=== PATIENT | female | born 1995 | race Caucasian/White ===

== ENCOUNTER → 2020-01-13 13:58 | Outpatient (CLI) | payer MEDICAID, SELFPAY ==
--- NOTE | 2020-01-13 13:58 | US_ITS ---
PROCEDURE: US TRANSVAGINAL CLINICAL INDICATION: pelvic pain The COMPARISON: No exams were available for comparison FINDINGS: UTERUS: 8cm x 4cmx 3cm with a combined endometrial thickness of 3.8mm LEFT OVARY: [id number] with a volume of 3.4ml. RIGHT OVARY: [id number] with a volume of 11.4ml. There is a 2 cm simple right ovarian cyst. Bilateral ovarian blood flow is present. IMPRESSION: 2 cm simple appearing right ovarian cyst otherwise unremarkable pelvic ultrasound Dictated by: Devaughn Maurice MD 01/13/2020 15:03 Devaughn Maurice MD in [place] 01/13/2020 15:03
== END ==
PROVIDERS: PCP Family Medicine; Visit Provider Nurse Practitioner Obstetrics & Gynecology
DX: R10.2 Pelvic and perineal pain (principal)
CPT/HCPCS: 76830

== ENCOUNTER → 2020-07-04 15:35 | Outpatient (CLI) | payer MEDICAID, SELFPAY ==
[2020-07-06 12:10] LABS: Hep A Ab, IgM Negative (Negative); Hepatitis B Core Antibody IgM Negative (Negative); Hepatitis B Surface Antigen Negative (Negative)
[2020-07-08 10:28] LABS: HIV Screen 4th Generation wRfx Non Reactive (Non Reactive)
[2020-07-08 10:29] LABS: HSV 2 IgG, Type Spec <0.91 index (0.00-0.90); Hepatitis C Antibody <0.1 s/co ratio (0.0-0.9); Rapid Plasma Reagin Ab Titer Non Reactive (NonRea<1:1)
== END ==
PROVIDERS: Visit Provider Nurse Practitioner Obstetrics & Gynecology
DX: Z72.51 High risk heterosexual behavior (principal)
CPT/HCPCS: 36415; 80074; 86592; 86695; 86703; 86790; G0432

== ENCOUNTER → 2020-07-05 15:41 | Outpatient (CLI) | payer MEDICAID, SELFPAY ==
[2020-07-10 10:36] LABS: Neisseria gonorrhoeae, NAA Negative (Negative)
== END ==
PROVIDERS: Visit Provider Nurse Practitioner Obstetrics & Gynecology
DX: Z72.51 High risk heterosexual behavior (principal)
CPT/HCPCS: 87491; 87591

== ENCOUNTER 2020-09-20 11:50 | Emergency (ER) | payer MEDICAID, SELFPAY ==
[2020-09-20 12:11] VITALS: PULSE 104; RESP 13; TEMP 36.8; O2SAT 100; BMI 19.5
--- NOTE | 2020-09-20 12:20 | HMH.EDUTC ---
[facility] [place] Disposition Clinical Impression: Strep throat Disposition: Home, Self-Care Condition on Discharge: Good Instructions: DI for Strep Throat, Strep Throat, Amoxicillin Additional Instructions: *Monitor Temp, Over the counter Motrin or Tylenol as directed/as needed Tylenol every 4 hours and Motrin every 6 hours (as long as your family doctor has told you that you can take it) for fever or pain. and straight to ER if unable to lower temp less than 101.0 after medication given *Warm salt water gargles may help to soothe the throat *Throat Lozenges *Warm fluids like tea with honey may help to soothe the throat *Sleep elevated *Humidifier/Vaporizer Take antibiotics as prescribed Follow up IMMEDIATELY for new or worsening symptoms or no Noticeable improvement over the next 48-72 hours. 911 for difficulty breathing or swallowing You were tested for today for COVID19 your test result should be back in the next 24-48 hours, you may call to the [facility] to see if your test results are back in the next 48 hours [phone] [facility] hours are 9am-9pm You was given a handout with instructions for Self Quarantine and Self isolation for while you wait on test results and what to do if they are positive If you are positive the Health Dept will be contacting you also Prescriptions: Amoxicillin [Amoxicillin 500mg Cap] 500 mg PO TID #30 cap Transmission Status: Pending to [facility]/pharmacy #[id number] Referrals: Marcellus Toussaint [Primary Care Provider] - As needed Forms: Work/School Release Time of Disposition: 12:30 Medical Decision Making - Devan Inquiry Pt receiving controlled substance: No Devan was queried for this patient: No Vital Signs: 09/20/20 12:11 Temperature 98.3 F Temperature Source Oral Pulse Rate [Left] 104 H Respiratory Rate 13 Blood Pressure Source [Right Arm] Automatic Cuff Blood Pressure Position [Right Arm] Sitting 02 Sat by Pulse Oximetry 100 - Lab Data Lab results reviewed: Yes: I reviewed the patient's lab results. Lab Results 09/20/20 12:14: Strep Scn Rapid Clinic Negative 09/20/20 12:14: Tst Clinic Negative Orders (Tests/Meds): ORDERS Category Date Time Status Covid-19 Nasal PCR ([facility]) Routine Lab 09/20/20 12:12 Received Strep Screen Confirmation Stat Micro 09/20/20 12:14 Received [facility] [place] HPI - General Stated complaint: sore throat, bodyaches, chills, upset stomach Time Seen by Provider: 09/20/20 12:20 Mode of Arrival: Ambulatory Source of Information: Patient Limitations: No Limitations Description of Symptoms (Recalled from Triage Doc. by RN): pt c/o a sore throat. she had a stomach ache yesterday, its not bothering her today. HEENT Symptoms (Recalled from RN notes): Yes (sore throat) Resp Symptoms (Recalled from RN notes): No Skin Symptoms (Recalled from RN notes): No MS Symptoms (Recalled from RN notes): No Functional Status (Recalled from RN notes): na - History of Present Illness Provider Complaint: Patient states that she has been having sore throat and yesterday she had upset stomach State that today she is feeling a little better but her throat is still hurting and she is feeling achy all over - Related Data Previous Rx's Medication Instructions Recorded Xulane 150 mcg-35 mcg/24 hr 1 patch TRANSDERMA Q7D #3 each NS 07/04/20 transdermal patch Amoxicillin [Amoxicillin 500mg 500 mg PO TID #30 cap 09/20/20 Cap] Allergies Allergy/AdvReac Type Severity Reaction Status Date / Time pecan nut Allergy Unknown Verified 09/20/20 12:17 red dye Allergy Unknown -- Verified 09/20/20 12:17 - Worker's Comp Is this a Worker's Comp case?: No [facility] History - Hepatitis A Screen Drug use history?: No High risk sexual behaviors?: No History of sexually transmitted infection?: No Currently employed?: No Childcare worker?: No Do you have indoor plumbing?: Yes Do you have electricity?: Yes Attestation statement:: This patient has been screened for Hepatitis
[2020-09-20 12:25] LABS: UTC Pregnancy Test, Urine Negative (Negative)
[2020-09-20 12:28] LABS: UTC Strep Screen (Rapid) Positive (Negative)
[2020-09-20 12:41] VITALS: BP 118/76; PULSE 100; RESP 16; TEMP 36.6
--- NOTE | 2020-09-20 20:59 | PC.NURSE ---
reported covid positive results.
== END 2020-09-20 12:41 | disposition home or self-care (01) ==
PROVIDERS: Emergency Provider Nurse Practitioner; PCP Family Medicine
DX: J02.0 Streptococcal pharyngitis (principal); F17.210 Nicotine dependence, cigarettes, uncomplicated
CPT/HCPCS: 81025; 87880; 99203; G0463; U0003

== ENCOUNTER → 2020-10-04 10:49 | Outpatient (CLI) | payer MEDICAID, SELFPAY ==
[2020-10-04 12:31] LABS: HCG,Quantitative < 2 mIU/ml (0-5.42)
== END ==
PROVIDERS: Visit Provider Nurse Practitioner Obstetrics & Gynecology
DX: N92.6 Irregular menstruation, unspecified (principal)
CPT/HCPCS: 36415; 84702

== ENCOUNTER 2020-11-13 10:25 | Emergency (ER) | payer MEDICAID, SELFPAY ==
[2020-11-13 10:50] VITALS: BP 116/66; PULSE 74; RESP 16; TEMP 36.6; O2SAT 100; BMI 18.9
[2020-11-13 11:19] LABS: UTC Pregnancy Test, Urine Negative (Negative)
[2020-11-13 11:20] LABS: UTC Strep Screen (Rapid) Positive (Negative)
[2020-11-13 11:32] VITALS: BP 116/66; PULSE 74; RESP 16; TEMP 36.6
--- NOTE | 2020-11-13 11:33 | HMH.EDUTC ---
[facility] [place] Clinical Impression: Viral syndrome Disposition: Home, Self-Care Condition on Discharge: Good Instructions: DI for Viral Syndrome Additional Instructions: Drink plenty of fluids. Take tylenol for pain or fever. Return if you begin to have difficulty breathing. Follow up with your regular doctor. GO TO THE ER FOR ANY WORSENING SYMPTOMS Quarantine until you know the results of your covid-19 test. If it is positive, the health department should call you and give you further instructions about your length of Quarantine and other things. Notify your school or workplace of your results and follow their instructions regarding return to work/school. Prescriptions: Brompheniramine/Pseudoephed/Dm [Bromfed Dm Cough Syrup] 5 ml PO Q6HP PRN #240 ml PRN Reason: Cough Transmission Status: Received by [id number] Referrals: Evens Toussaint MD [Primary Care Provider] - Time of Disposition: 11:34 Medical Decision Making - Medical Records Medical records reviewed: No: I reviewed the patient's medical records. - Devan Inquiry Pt receiving controlled substance: No Vital Signs: 11/13/20 10:50 11/13/20 11:32 Temperature 97.9 F 97.9 F Temperature Source Oral Pulse Rate 74 Pulse Rate [Left] 74 Respiratory Rate 16 16 Blood Pressure 116/66 Blood Pressure [Right Arm] 116/66 Blood Pressure Mean [Right Arm] 82 02 Sat by Pulse Oximetry 100 - Lab Data Lab results reviewed: Yes: I reviewed the patient's lab results. Lab Results 11/13/20 10:53: Strep Scn Rapid Clinic Positive A 11/13/20 10:53: Tst Clinic Negative [facility] [place]PI - General Stated complaint: cough, exposure to flu Time Seen by Provider: 11/13/20 11:00 Mode of Arrival: Ambulatory Source of Information: Patient Limitations: No Limitations Description of Symptoms (Recalled from Triage Doc. by RN): pt c/o of nausea that mostly occurs in the mornings. x2 weeks. HEENT Symptoms (Recalled from RN notes): No Resp Symptoms (Recalled from RN notes): No Skin Symptoms (Recalled from RN notes): No MS Symptoms (Recalled from RN notes): No Functional Status (Recalled from RN notes): na - History of Present Illness Provider Complaint: She has been having nausea off and on for the past 3 days. - Related Data Previous Rx's Medication Instructions Recorded Xulane 150 mcg-35 mcg/24 hr 1 patch TRANSDERMA Q7D #3 each NS 07/04/20 transdermal patch Amoxicillin [Amoxicillin 500mg 500 mg PO TID #30 cap 09/20/20 Cap] Brompheniramine/Pseudoephed/Dm 5 ml PO Q6HP PRN #240 ml 11/13/20 [Bromfed Dm Cough Syrup] Allergies Allergy/AdvReac Type Severity Reaction Status Date / Time pecan nut Allergy Unknown Verified 09/20/20 12:17 red dye Allergy Unknown -- Verified 09/20/20 12:17 - Worker's Comp Is this a Worker's Comp case?: No [facility] History - Hepatitis A Screen Drug use history?: No High risk sexual behaviors?: No History of sexually transmitted infection?: No Currently employed?: No Childcare worker?: No Do you have indoor plumbing?: Yes Do you have electricity?: Yes Attestation statement:: This patient has been screened for Hepatitis A risk factors. I have reviewed the patient's past medical history: Yes Comment: EPILEPTIC. TRICH. ON PAPS Other Surgeries: Yes: Amputation: No Fractures: No Comment: P* C/S---2014. R C/S---2017 - 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 Smoking Status: Current every day smoker Alcohol Intake: current Alcohol Intake Frequency:: holidays/special occasions only Substance Use Type: denies use Occupational Status: unemployed Housing: house Family Hx:: No significant family history ROS Obtained: Yes All systems reviewed & no additional complaints - Constitutional Constitutional: Reports system reviewed and no additional complaints, except as docu - Eyes Eyes: Reports system reviewed and no additional complaints, except as docu - ENT Ears, Nose, Mouth, and Throat:
== END 2020-11-13 11:40 | disposition home or self-care (01) ==
PROVIDERS: Emergency Provider Nurse Practitioner Family; PCP Radiology Diagnostic Radiology
DX: B34.9 Viral infection, unspecified (principal); R05 Cough
CPT/HCPCS: 81025; 87880; 99203; G0463

== ENCOUNTER 2021-05-04 15:03 | Emergency (ER) | payer MEDICAID, SELFPAY ==
[2021-05-04 15:04] VITALS: BP 115/89; PULSE 109; RESP 16; TEMP 36.9; O2SAT 98; BMI 18.4
[2021-05-04 15:33] LABS: UTC Strep Screen (Rapid) Negative (Negative)
--- NOTE | 2021-05-04 16:02 | HMH.EDUTC ---
[facility] [place] Impression: Vomiting Qualifiers: Vomiting type: unspecified Nausea presence: with nausea Qualified Code(s): R11.2 - Nausea with vomiting, unspecified URI (upper respiratory infection) Qualifiers: URI type: unspecified URI Qualified Code(s): J06.9 - Acute upper respiratory infection, unspecified Disposition: Home, Self-Care Condition on Discharge: Good Instructions: DI for Vomiting -- Adult, Acute Bronchitis Additional Instructions: ? Start antibiotic today. Be sure to complete entire prescription even if feeling better ? Monitor temp. Tylenol every 4 hours as needed and / or ibuprofen every 6 hours as needed ( As long as your primary care physician has told you that it ok to take both. For fever/aches/pains ER if no less than 101 despite Tylenol or Motrin ? Humidifier/vaporizer or hot steamy shower Drink extra fluids with and between meals. If you have difficulty drinking, try very small amounts of water or suck on ice chips. ? Avoid fruit juices, as these do not replace minerals and can actually increase diarrhea. ? Children and adults can use sports drinks to replenish electrolytes. Younger children and infants should use products formulated for children, like oral rehydration solutions. ? Eat food in small amounts and let your stomach recover. ? Get lots of rest. You may feel tired or weak. ? No greasy or fried foods for the next 24-48 hours BRAT diet Bananas Rice Apples and Alda ? Make sure to drink plenty of liquids ? Return if needed ? Straight to ER if any life threatening symptoms ? Zofran as prescribed ? Follow up with family doctor in the next 48-72 hours if no improvement or any worsening of symptoms Follow up IMMEDIATELY for new or worsening of symptoms OR no noticeable improvement over the next 48-72 hours. 911 immediately for any life threatening symptoms such as chest pain or difficulty breathing Prescriptions: Azithromycin [Z-Ishaan 250mg Tab] 250 mg PO DIRECTED #6 tab Transmission Status: [id number] Ondansetron [Zofran 4mg ODT] 4 mg PO TIDP PRN #6 tab PRN Reason: Vomiting Transmission Status: [id number] Referrals: Provider,Referral, MD [Primary Care Provider] - As needed Time of Disposition: 16:09 Medical Decision Making - Devan Inquiry Pt receiving controlled substance: No Devan was queried for this patient: No Vital Signs: 05/04/21 15:04 Temperature 98.5 F Temperature Source Oral Pulse Rate [Right] 109 H Respiratory Rate 16 Blood Pressure [Right Arm] 115/89 Blood Pressure Mean [Right Arm] 97 Blood Pressure Source [Right Arm] Automatic Cuff Blood Pressure Position [Right Arm] Sitting 02 Sat by Pulse Oximetry 98 Oxygen Delivery Method Room Air - Lab Data Lab results reviewed: Yes: I reviewed the patient's lab results. Lab Results 05/04/21 15:24: Strep Scn Rapid Clinic Negative Orders (Tests/Meds): ORDERS Category Date Time Status Strep Screen Confirmation Stat Micro 05/04/21 15:24 [place] [facility] [place] - General Stated complaint: cough, stomach pain, sore throat Time Seen by Provider: 05/04/21 16:02 Mode of Arrival: Ambulatory Source of Information: Patient Limitations: No Limitations Description of Symptoms (Recalled from Triage Doc. by RN): pt c/o sore throat, body aches that started 2 days ago HEENT Symptoms (Recalled from RN notes): Yes (sore throat) Resp Symptoms (Recalled from RN notes): No Skin Symptoms (Recalled from RN notes): No MS Symptoms (Recalled from RN notes): No Functional Status (Recalled from RN notes): na - History of Present Illness Provider Complaint: Patient states that she has been having sore throat, body aches, chest congestion and vomiting for the last couple of days States that today she was feeling worse so she came in to get checked States that at times she feels like she is having drainage in the back of her throat and is an everyday smoker - Related Tyrone
[2021-05-04 16:12] VITALS: BP 115/89; PULSE 100; RESP 16; TEMP 36.9; O2SAT 98
== END 2021-05-04 16:13 | disposition home or self-care (01) ==
PROVIDERS: Emergency Provider Nurse Practitioner
DX: J06.9 Acute upper respiratory infection, unspecified (principal); J02.9 Acute pharyngitis, unspecified; R10.9 Unspecified abdominal pain; R11.2 Nausea with vomiting, unspecified; M79.10 Myalgia, unspecified site; R05.9 Cough, unspecified; F17.200 Nicotine dependence, unspecified, uncomplicated; Z79.899 Other long term (current) drug therapy; Z91.010 Allergy to peanuts; Z91.048 Other nonmedicinal substance allergy status
CPT/HCPCS: 87880; 99213; G0463

== ENCOUNTER 2021-08-11 19:37 | Emergency (ER) | payer MEDICAID, SELFPAY ==
[2021-08-11 19:57] VITALS: BP 107/65; PULSE 68; RESP 18; TEMP 36.8; O2SAT 98; BMI 20.3
[2021-08-11 20:13] LABS: Apearance,Urine Clear (Clear); Bilirubin,Urine Negative (Negative); Blood, Urine Negative (Negative); Color,Urine Yellow (Yellow); Glucose,Urine (UA) Negative (Negative); Ketones,Urine Negative (Negative); Protein,Urine Negative (Negative); Urobilinogen,Urine 0.2 EU/dl (0.2)
[2021-08-11 20:14] LABS: UTC Leukocyte Esterase,Urine Negative (Negative); UTC Nitrate,Urine Negative (Negative); UTC Pregnancy Test, Urine Negative (Negative)
--- NOTE | 2021-08-11 20:54 | HMH.EDUTC ---
[facility] [place] Condition on Discharge: Fair Time of Disposition: 21:08 <Tuan Burnham - Last Filed: 08/11/21 20:54> <Andres Brown - Last Filed: 08/12/21 01:08> Clinical Impression: Colitis Abdominal pain Qualifiers: Abdominal location: lower abdomen, unspecified Qualified Code(s): R10.30 - Lower abdominal pain, unspecified Disposition: Home, Self-Care Instructions: DI for Colitis Additional Instructions: fluids and use meds and see pcp for follow up Prescriptions: levoFLOXacin [Levaquin 500mg tab] 500 mg PO DAILY #7 tab Transmission Status: [id number] metroNIDAZOLE [metroNIDAZOLE 500mg Tablet] 500 mg PO TID #30 tab Transmission Status: [id number] Referrals: Marcellus Toussaint [Primary Care Provider] - Medical Decision Making - Medical Records Medical records reviewed: No: I reviewed the patient's medical records. - Devan Inquiry Pt receiving controlled substance: No - Lab Data Lab results reviewed: Yes: I reviewed the patient's lab results. <Tuan Burnham - Last Filed: 08/11/21 20:54> - Lab Data Result diagrams: 08/11/21 21:50 08/11/21 21:50 - CT Data CT Scan: Abdomen, Pelvis Time Received: 01:[address] Reviewed: Yes: I have viewed the radiologist's interpretation Preliminary Findings: Abnormal (colitis) <Andres Brown - Last Filed: 08/12/21 01:08> Vital Signs: 08/11/21 19:57 08/11/21 21:30 Temperature 98.3 F 98.2 F Temperature Source Oral Oral Pulse Rate [Left Radial] 68 68 Respiratory Rate 18 16 Blood Pressure [Right Arm] 107/65 L 115/73 Blood Pressure Mean [Right Arm] 79 87 Blood Pressure Source [Right Arm] Automatic Cuff 02 Sat by Pulse Oximetry 98 99 Oxygen Delivery Method Room Air - Lab Data Lab Results 08/11/21 20:03: Urine Color Yellow, Urine Appearance Clear, Urine pH 6.0, Ur Specific [place] 1.010, Urine Protein Negative, Urine Glucose (UA) Negative, Urine Ketones Negative, Urine Blood Negative, Urine Nitrate Negative, Urine Bilirubin Negative, Urine Urobilinogen 0.2, Ur Leukocyte Esterase Negative, Tst Clinic Negative 08/11/21 21:50: WBC 12.4 H, RBC 4.88, Hgb 14.2, Hct 43.3, MCV 88.8, MCH 29.2, MCHC 32.9, RDW 13.6, Plt Count 251, MPV 8.5, Neut % (Auto) 67.2, Lymph % (Auto) 26.4, [place] % (Auto) 4.5, Eos % (Auto) 0.7, Baso % (Auto) 1.2, Neut # (Auto) 8.3 H, Lymph # (Auto) 3.3, [place] # (Auto) 0.6, Eos # (Auto) 0.1, Baso # (Auto) 0.2, ESR 5 08/11/21 21:50: Sodium 138, Potassium 4.0, Chloride 106, Carbon Dioxide 27, Anion Gap 9.0, BUN 6 L, Creatinine 0.60, Estimated Creat Clear 135, Estimated GFR 123, Est GFR ( Amer) 149, Glucose 94, Calcium 8.9, Total Bilirubin < 0.1 L, AST 21, ALT 12, Alkaline Phosphatase 71, C-Reactive Protein 1.2, Total Protein 7.2, Albumin 4.1, Globulin 3.1, Albumin/Globulin Ratio 1.3, Amylase 67, Lipase 55, Procalcitonin 0.040 Orders (Tests/Meds): ED MEDICATIONS Generic Name Dose Route Start Last Admin Trade Name Freq PRN Reason Stop Dose Admin Sodium Chloride 1,000 mls @ 999 mls/hr 08/11/21 21:45 08/11/21 22:18 Sod Chlor 0.9% 1000ml Bag IV 08/11/21 22:45 999 mls/hr .Q1H1M NANCY Administration Sodium Chloride 1,000 mls @ 999 mls/hr 08/12/21 00:30 08/12/21 00:25 Sod Chlor 0.9% 1000ml Bag IV 08/12/21 01:30 999 mls/hr .Q1H1M NANCY Administration Metronidazole 500 mg in 100 mls @ 100 mls/hr 08/12/21 01:01 Flagyl 500mg/100ml Ivpb IV 08/12/21 02:00 ONCE ONE Discontinued Medications Generic Name Dose Route Start Last Admin Trade Name Freq PRN Reason Stop Dose Admin Acetaminophen/Codeine Phosphate 1 packet 08/12/21 01:02 Acetaminophen 300mg W/Codeine 30mg Take Home Pack (6) PO 08/12/21 01:03 ONCE ONE Diatrizoate Meglum/Diatrizoate Sod 30 ml 08/11/21 21:35 08/11/21 22:00 Diatrizoate Yanni 66% & Diatrizoate Na 10% 30ml Udc PO 08/11/21 21:36 30 ml ONCE ONE Administration Ketorolac Tromethamine 30 mg 08/11/21 21:36 08/11/21 22:18
[2021-08-11 21:30] VITALS: BP 115/73; PULSE 68; RESP 16; TEMP 36.8; O2SAT 99; BMI 18.6
--- NOTE | 2021-08-11 21:35 | CT_ITS ---
PROCEDURE INFORMATION: Exam: CT Abdomen And Pelvis Without Contrast Exam date and time: 08/11/2021 11:27 PM Age: 26 years old Clinical indication: Abdominal pain; Generalized; Additional info: Low abd pain TECHNIQUE: Imaging protocol: Computed tomography of the abdomen and pelvis without contrast. Radiation optimization: All CT scans at this facility use at least one of these dose optimization techniques: automated exposure control; mA and/or kV adjustment per patient size (includes targeted exams where dose is matched to clinical indication); or iterative reconstruction. Other contrast: Oral, gastroview, 30; COMPARISON: US TRANSVAGINAL 01/13/2020 2:07 PM FINDINGS: Lungs: There is a 3 mm left lower lobe pulmonary nodule image 14 series 3. If the patient does not have known cancer, follow up should be based on clinical information because of the low risk of cancer in this age group. (Reference: Wyatt) Liver: Normal. No mass. Gallbladder and bile ducts: Normal. No calcified stones. No ductal dilation. Pancreas: Normal. No ductal dilation. Spleen: Normal. No splenomegaly. Adrenal glands: Normal. No mass. Kidneys and ureters: Normal. No hydronephrosis. Stomach and bowel: Nonspecific mild bowel wall thickening of portions of small bowel and colon. Appendix: Unremarkable appendix. Intraperitoneal space: Unremarkable. No free air. No significant fluid collection. Vasculature: Unremarkable. No abdominal aortic aneurysm. Lymph nodes: Unremarkable. No enlarged lymph nodes. Urinary bladder: Unremarkable as visualized. Reproductive: Unremarkable as visualized. Bones/joints: Unremarkable. No acute fracture. Soft tissues: Unremarkable. IMPRESSION: Nonspecific mild bowel wall thickening of portions of small bowel and colon. This is favored to represent enterocolitis. REFERENCES: Wyatt Lim et al. Guidelines for Management of Incidental Pulmonary Nodules Detected on CT Images: From the Fleischner Society 2017. Radiology. 2017;284(1):228-243.
[2021-08-11 22:27] LABS: Basophils # 0.2 K/mm3 (0-0.2); Basophils % 1.2 % (0.1-2.0); Eosinophils # 0.1 K/mm3 (0.0-0.4); Eosinophils % 0.7 % (0.1-12.0); Hematocrit 43.3 % (37.0-47.0); Hemoglobin 14.2 g/dL (12.2-16.2); Lymphocytes # 3.3 K/mm3 (0.7-4.5); Lymphocytes % 26.4 % (10-50); Mean Corpuscular HGB Conc 32.9 g/dL (31.8-35.4); Mean Corpuscular Hemoglobin 29.2 pg (27.0-31.2); Mean Corpuscular Volume 88.8 fl (81-99); Mean Platelet Volume 8.5 fl (7.4-10.4); Monocytes # 0.6 K/mm3 (0.1-1.0); Monocytes % 4.5 % (1.7-9.3); Neutrophils # 8.3 K/mm3 (1.8-7.8); Neutrophils % 67.2 % (37.0-80.0); Platelet Count 251 K/mm3 (142-424); Red Blood Count 4.88 M/mm3 (4.20-5.40); Red Cell Distribution Width 13.6 % (11.5-17.5); White Blood Count 12.4 K/mm3 (4.8-10.8)
[2021-08-11 22:37] LABS: Alanine Aminotransferase 12 U/L (12-78); Albumin Level 4.1 g/dl (3.5-5.0); Albumin/Globulin Ratio 1.3 (1.1-1.8); Alkaline Phosphatase 71 U/L (38-126); Amylase 67 U/L (30-110); Aspartate Amino Transferase 21 U/L (14-36); Blood Urea Nitrogen 6 mg/dl (7-17); Calcium 8.9 mg/dl (8.4-10.2); Carbon Dioxide 27 mmol/L (22.0-30.0); Chloride 106 mmol/L (98-107); Creatinine Clearance Estimated 135 mL/min (50-200); Estimated Glomerular Filt Rate 123 ml/min (>60); GFR (African American) 149 ML/MIN (>60); Globulin 3.1 g/dL (1.3-3.2); Glucose 94 mg/dl (74-100); Lipase 55 U/L (23-300); Sodium 138 mmol/L (136-145); Total Protein,Serum 7.2 g/dl (6.3-8.2)
[2021-08-11 22:38] LABS: Bilirubin,Total < 0.1 mg/dl (0.2-1.3)
[2021-08-11 22:42] LABS: C-Reactive Protein 1.2 mg/L (0-4)
[2021-08-11 23:02] LABS: Erythrocyte Sedimentation Rate 5 mm/hr (0-20)
--- NOTE | 2021-08-11 23:06 | PC.NURSE ---
Pt completed oral contrast @ 2144. Radiology notified.
--- NOTE | 2021-08-11 23:22 | PC.NURSE ---
Pt updated on POC. Warm blanket given. No new needs at this time.
[2021-08-12 01:17] VITALS: BP 100/63; PULSE 51; RESP 18; TEMP 36.6; O2SAT 100
== END 2021-08-12 01:29 | disposition home or self-care (01) ==
LOC: UTC 21:08 → ER 21:33
PROVIDERS: Nurse Practitioner Family; Emergency Provider Emergency Medicine; PCP Family Medicine
DX: K52.9 Noninfective gastroenteritis and colitis, unspecified (principal)
CPT/HCPCS: 74176; 80053; 81003; 81025; 82150; 83690; 84145; 85025; 85651; 86140; 96361; 96374; 96375; 99284; J2405

== ENCOUNTER → 2021-09-23 11:43 | Outpatient (CLI) | payer MEDICAID, SELFPAY ==
[2021-09-23 12:42] LABS: HCG,Quantitative < 2 mIU/ml (0-5.42)
== END ==
PROVIDERS: PCP Nurse Practitioner Family; Visit Provider Nurse Practitioner Obstetrics & Gynecology
DX: N92.6 Irregular menstruation, unspecified (principal)
CPT/HCPCS: 36415; 84702

== ENCOUNTER 2021-12-25 18:00 | Emergency (ER) | payer MEDICAID, SELFPAY ==
[2021-12-25 20:02] VITALS: BP 122/74; PULSE 75; RESP 18; TEMP 36.8; O2SAT 98; BMI 21.1
--- NOTE | 2021-12-25 20:07 | EXP.UTC ---
Discharge Plan Disposition Patient Disposition: Home, Self-Care Condition: Good Prescriptions Prescriptions: No Action Nexplanon 68 mg implant 1 dose SUBDERMAL DIRECTED cetirizine [Zyrtec] 10 mg tablet 10 mg PO DAILY PRN (Reason: allergy symptoms) Qty: 30 2RF fluticasone propionate 50 mcg/actuation spray,suspension See Rx Instructions .ROUTE .COMPLEX Qty: 48 0RF Dose Instruction: PLACE 1 SPRAY INTO EACH NOSTRIL DAILY Rx Instructions: PLACE 1 SPRAY INTO EACH NOSTRIL DAILY Referrals Follow up/Referrals: Marcellus Toussaint [Primary Care Provider] - See instructions Activity Restrictions/Add. Instructions Additional Instructions/Restrictions: Over the counter Cold and cough medication may help with your cough and nasal congestion Follow up with your Family Doctor if you continue to have symptoms return if needed Straight to ER if any life threatneing symptoms Clinical Impressions Clinical Impression: Encounter for test, result negative Discharge ED Provider: Marcelina Guerrero [facility] [place] HPI General Stated complaint: Cough,light headed,Feels hot Mode of Arrival: Ambulatory Source of Information: Patient Limitations: No Limitations Time Seen by Provider: 12/25/21 20:07 Description of Symptoms (Recalled from Triage Doc. by RN): pt c/o light headedness, coughing, gonzales , urinary frequency and dry heaving for prior 3 days HEENT Symptoms (Recalled from RN notes): No Resp Symptoms (Recalled from RN notes): Yes Skin Symptoms (Recalled from RN notes): No MS Symptoms (Recalled from RN notes): No Functional Status (Recalled from RN notes): na History of Present Illness Provider Complaint: Patient states that she has been feeling gonzales, waking up with morning sickness like symptoms nausea and fatigue and feels like she is urinating more than normal like she did with her other pregnancies States that she has a bar in her arm but she got with her other children on control and her urine test was negative so she wanted to get a blood test Related Data Home Medications Medication Instructions Recorded Confirmed etonogestrel 68 mg subdermal 1 dose subdermal DIRECTED 12/04/20 09/03/21 implant (Nexplanon) control Previous Rx's Medication Instructions Recorded cetirizine 10 mg tablet (Zyrtec) 10 mg PO DAILY PRN allergy 09/03/21 symptoms #30 tabs fluticasone propionate 50 See Rx Instructions .Route 12/02/21 mcg/actuation nasal .COMPLEX #48 mL spray,suspension Allergies Allergy/AdvReac Type Severity Reaction Status Date / Time pecan nut Allergy Unknown Verified 09/03/21 15:04 red dye Allergy Unknown -- Verified 09/03/21 15:04 Worker's Comp Is this a Worker's Comp case?: No PFSH PFSH 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 Smoking Status: Current every day smoker tobacco type: cigarettes packs per day: 1 alcohol intake: current substance use type: denies use current occupational status: unemployed Travel in the last 8 weeks: None household members: family housing: house ROS Obtained: Yes All systems reviewed & no additional complaints except as documented and Yes Systems reviewed as appropriate & no additional complaints except as documented Constitutional Constitutional: Reports system reviewed and no additional complaints, except as documented, Reports as per HPI, Denies body ache, Denies chills, Reports fatigue, Denies fever(s) and Denies headache(s) ENT Ears, Nose, Mouth, and Throat: Reports system reviewed and no additional complaints, except as documented, Reports as per HPI and Denies headache(s) Cardiovascular Cardiovascular: Reports system reviewed and no additional complaints, except as documented and Reports as per HPI Respiratory Respiratory: Reports system reviewed and no additional complaints, except as documented and Reports as per HPI Gastrointestinal Gastrointestingal: Reports system reviewed and no additional complaints, except as document
[2021-12-25 20:14] LABS: Apearance,Urine Cloudy (Clear); Bilirubin,Urine Negative (Negative); Blood, Urine Negative (Negative); Color,Urine Yellow (Yellow); Glucose,Urine (UA) Negative (Negative); Ketones,Urine Negative (Negative); PH,Urine 5.5 (5.0-8.5); Protein,Urine Negative (Negative); Specific Gravity, Urine 1.025 (1.005-1.030); UTC Leukocyte Esterase,Urine Negative (Negative); UTC Nitrate,Urine Negative (Negative); UTC Pregnancy Test, Urine Negative (Negative); Urobilinogen,Urine 0.2 EU/dl (0.2)
[2021-12-25 20:55] LABS: HCG Qualitative, Serum Negative (Negative)
[2021-12-25 21:02] VITALS: BP 120/60; PULSE 70; RESP 18; TEMP 36.6; O2SAT 99
[2021-12-26 20:36] LABS: UTC Influenza A Antigen Negative (Negative); UTC Influenza B Antigen Negative (Negative)
== END 2021-12-25 21:07 | disposition home or self-care (01) ==
PROVIDERS: Emergency Provider Nurse Practitioner; PCP Family Medicine
DX: R42 Dizziness and giddiness (principal); R11.0 Nausea; R53.82 Chronic fatigue, unspecified; R50.9 Fever, unspecified; R05.9 Cough, unspecified; R35.0 Frequency of micturition; R19.8 Other specified symptoms and signs involving the digestive system and abdomen; Z79.51 Long term (current) use of inhaled steroids; Z79.3 Long term (current) use of hormonal contraceptives; Z79.899 Other long term (current) drug therapy; Z91.018 Allergy to other foods; Z91.048 Other nonmedicinal substance allergy status
CPT/HCPCS: 81003; 81025; 84703; 87804; 99213; G0463

== ENCOUNTER 2022-02-04 16:02 | Emergency (ER) | payer MEDICAID, SELFPAY ==
--- NOTE | 2022-02-04 16:26 | EXP.UTC ---
Discharge Plan Disposition Patient Disposition: Still a Patient Condition: Good Prescriptions Prescriptions: No Action Nexplanon 68 mg implant 1 dose SUBDERMAL DIRECTED cetirizine [Zyrtec] 10 mg tablet 10 mg PO DAILY PRN (Reason: allergy symptoms) Qty: 30 2RF fluticasone propionate 50 mcg/actuation spray,suspension See Rx Instructions .ROUTE .COMPLEX Qty: 48 0RF Dose Instruction: PLACE 1 SPRAY INTO EACH NOSTRIL DAILY Rx Instructions: PLACE 1 SPRAY INTO EACH NOSTRIL DAILY Referrals Follow up/Referrals: Provider,Referral, MD [Primary Care Provider] - See instructions Clinical Impressions Clinical Impression: Chest pain Discharge ED Provider: Brook ([facility])Edith [facility] [place] HPI General Stated complaint: cough, gonzalez, congestion, NA Mode of Arrival: Ambulatory Source of Information: Patient Limitations: No Limitations Time Seen by Provider: 02/04/22 16:26 HEENT Symptoms (Recalled from RN notes): Yes Resp Symptoms (Recalled from RN notes): Yes Skin Symptoms (Recalled from RN notes): No GI/ Symptoms (Recalled from RN notes): Yes MS Symptoms (Recalled from RN notes): No Card Symptoms (Recalled from RN notes): Yes History of Present Illness Provider Complaint: 26 yr old female presents for sore throat,fever, abd pain that starts on both sides and shoots up to the chest, feels like someone is sating on chest, heart racing and fluttering and feels she is going to pass out. pt states symptoms for 2 weeks but has gotten worse Related Data Home Medications Medication Instructions Recorded Confirmed etonogestrel 68 mg subdermal 1 dose subdermal DIRECTED 12/04/20 09/03/21 implant (Nexplanon) control Previous Rx's Medication Instructions Recorded cetirizine 10 mg tablet (Zyrtec) 10 mg PO DAILY PRN allergy 09/03/21 symptoms #30 tabs fluticasone propionate 50 See Rx Instructions .Route 12/02/21 mcg/actuation nasal .COMPLEX #48 mL spray,suspension Allergies Allergy/AdvReac Type Severity Reaction Status Date / Time pecan nut Allergy Unknown Verified 09/03/21 15:04 red dye Allergy Unknown -- Verified 09/03/21 15:04 [facility] Disclaimer: The information contained in this section may have been updated after the patient was seen, as this information can be updated by other users. 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) Smoking Status: Current every day smoker tobacco type: cigarettes packs per day: 1 alcohol intake: current substance use type: denies use current occupational status: unemployed Travel in the last 8 weeks: None household members: family housing: house ROS Obtained: Yes All systems reviewed & no additional complaints except as documented Constitutional Constitutional: Reports system reviewed and no additional complaints, except as documented, Reports as per HPI, Reports fever(s) and Reports weakness Eyes Eyes: Reports system reviewed and no additional complaints, except as documented and Reports as per HPI ENT Ears, Nose, Mouth, and Throat: Reports system reviewed and no additional complaints, except as documented, Reports as per HPI, Reports dizziness and Reports sore throat Cardiovascular Cardiovascular: Reports system reviewed and no additional complaints, except as documented, Reports as per HPI, Reports chest pain, Reports lightheadedness, Reports palpitations, Reports rapid heart rate, Reports syncope and Reports other Respiratory Respiratory: Reports system reviewed and no additional complaints, except as documented and Reports as per HPI Gastrointestinal Gastrointestingal: Reports system reviewed and no additional complaints, except as documented, as per HPI and abdominal pain Musculoskeletal Musculoskeletal: Reports system reviewed and no additional complaints, except as documented Integumentary/Breasts Skin/Breast: Reports system reviewed and no additional complaints, except as documented Neurolog
[2022-02-04 16:44] VITALS: BP 119/85; PULSE 81; RESP 16; TEMP 36.7; O2SAT 99; BMI 21.1
--- NOTE | 2022-02-04 18:00 | CT_ITS ---
PROCEDURE INFORMATION: Exam: CT Abdomen And Pelvis With Contrast Exam date and time: 02/04/2022 6:44 PM Age: 26 years old Clinical indication: Abdominal pain; Prior surgery; Additional info: Abd pain TECHNIQUE: Imaging protocol: Computed tomography of the abdomen and pelvis with contrast. Radiation optimization: All CT scans at this facility use at least one of these dose optimization techniques: automated exposure control; mA and/or kV adjustment per patient size (includes targeted exams where dose is matched to clinical indication); or iterative reconstruction. Contrast material: ISOVUE; Contrast volume: 75 ml; Contrast route: IV; COMPARISON: CT ABDOMEN PELVIS WO CON 08/11/2021 11:27 PM FINDINGS: Liver: Normal. No mass. Gallbladder and bile ducts: Normal. No calcified stones. No ductal dilation. Pancreas: Normal. No ductal dilation. Spleen: Normal. No splenomegaly. Adrenal glands: Normal. No mass. Kidneys and ureters: Normal. No hydronephrosis. Stomach and bowel: Unremarkable. No obstruction. No mucosal thickening. Appendix: No evidence of appendicitis. Intraperitoneal space: Mild physiologic free fluid in the pelvis. Vasculature: Unremarkable. No abdominal aortic aneurysm. Lymph nodes: Unremarkable. No enlarged lymph nodes. Urinary bladder: Unremarkable as visualized. Reproductive: 2.4 cm right ovarian cyst. Bones/joints: Unremarkable. No acute fracture. Soft tissues: Unremarkable. IMPRESSION: 2.4 cm right ovarian cyst. Mild physiologic free fluid in the pelvis.
[2022-02-04 18:02] VITALS: BP 119/83; PULSE 56; RESP 16; TEMP 36.7; O2SAT 99; BMI 21.1
[2022-02-04 18:20] LABS: Basophils # 0.1 K/mm3 (0-0.2); Basophils % 1.3 % (0.1-2.0); Eosinophils # 0.2 K/mm3 (0.0-0.4); Eosinophils % 2.3 % (0.1-12.0); Hematocrit 42.4 % (37.0-47.0); Lymphocytes # 3.2 K/mm3 (0.7-4.5); Lymphocytes % 40.7 % (10-50); Mean Corpuscular HGB Conc 32.9 g/dL (31.8-35.4); Mean Corpuscular Hemoglobin 28.7 pg (27.0-31.2); Mean Corpuscular Volume 87.2 fl (81-99); Mean Platelet Volume 8.8 fl (7.4-10.4); Monocytes # 0.5 K/mm3 (0.1-1.0); Monocytes % 5.9 % (1.7-9.3); Neutrophils # 3.9 K/mm3 (1.8-7.8); Neutrophils % 49.9 % (37.0-80.0); Platelet Count 209 K/mm3 (142-424); Red Blood Count 4.87 M/mm3 (4.20-5.40); Red Cell Distribution Width 12.6 % (11.5-17.5); White Blood Count 7.8 K/mm3 (4.8-10.8)
[2022-02-04 18:30] LABS: Chloride 104 mmol/L (98-107); Potassium 3.3 mmoL/L (3.5-5.1); Sodium 140 mmol/L (136-145)
[2022-02-04 18:32] LABS: HCG Qualitative, Serum Negative (Negative)
[2022-02-04 18:33] LABS: Blood Urea Nitrogen 8 mg/dl (7-17); Creatinine Clearance Estimated 140 mL/min (50-200); Estimated Glomerular Filt Rate 123 ml/min (>60); GFR (African American) 149 ML/MIN (>60)
[2022-02-04 18:34] LABS: Anion Gap 9.3 mEq/L (5-15); Calcium 8.8 mg/dl (8.4-10.2); Carbon Dioxide 30 mmol/L (22.0-30.0); Glucose 85 mg/dl (74-100)
--- NOTE | 2022-02-04 18:34 | ECG_ITS ---
APPROVED REPORT Exam: Resting ECG HR:58 bpm ECG Measurements Heart Rate 58 AXES AK 170 P 37 QRSd 93 QRS 60 QT 440 T 58 QTc 437 Conclusion SINUS BRADYCARDIA BORDERLINE ECG UNCONFIRMED REPORT Electronically signed by : Moe Vasquez MD 02/05/2022 13:28:18
[2022-02-04 18:46] LABS: Troponin I < 0.01 ng/ml (0.00-0.034)
[2022-02-04 18:49] LABS: Lipase 91 U/L (23-300)
--- NOTE | 2022-02-04 18:57 | HMH.EDGENADL ---
Discharge Plan Disposition Patient Disposition: Home, Self-Care Condition: Good Prescriptions Prescriptions: No Action Nexplanon 68 mg implant 1 dose SUBDERMAL DIRECTED cetirizine [Zyrtec] 10 mg tablet 10 mg PO DAILY PRN (Reason: allergy symptoms) Qty: 30 2RF fluticasone propionate 50 mcg/actuation spray,suspension See Rx Instructions .ROUTE .COMPLEX Qty: 48 0RF Dose Instruction: PLACE 1 SPRAY INTO EACH NOSTRIL DAILY Rx Instructions: PLACE 1 SPRAY INTO EACH NOSTRIL DAILY Referrals Follow up/Referrals: Provider,Referral, MD [Primary Care Provider] - See instructions Activity Restrictions/Add. Instructions Additional Instructions/Restrictions: [id number] ibuprofen 600 mg every 6-8 hours as needed for pain. Follow-up with [facility] for further care of ovarian cyst. Additional instructions for ABDOMINAL PAIN: See your physician as soon as possible for further evaluation. Return immediately if worsening abdominal pain, vomiting, shortness of breath, fever, vomiting of blood or abdominal distention. Clinical Impressions Clinical Impression: Abdominal pain, Ovarian cyst, Acute viral syndrome Stand Alone Forms Stand Alone Forms: Work/School Release Instructions Patient Instructions: DI for Ovarian Cyst, DI for Viral Upper Respiratory Infection -- Adult, DI for Acute Abdominal Pain Discharge ED Provider: Lucio Palencia General Adult HPI General Chief complaint: Abdominal Pain Stated complaint: cough, gonzalez, congestion, NA Time Seen by Provider: 02/04/22 18:57 Mode of Arrival: Ambulatory Source of Information: Patient Limitations: No Limitations Description of Symptoms (Recalled from ER Triage Doc. by RN): Pt reports has had intermittent L sided abd pain that radiates into pelvis for the past couple weeks. Pt reports at times when she has this pain her chest feels heavy. Pt reports History of Present Illness HPI narrative: The patient is sent from the urgent treatment center. She has multiple complaints. States that she has not felt well for 2 weeks. She has had a cough which is nonproductive. She has had low-grade fevers to 100. She has a sore throat. She has dizziness. She has had abdominal pain on both sides of her abdomen that goes down into the suprapubic area, and when she gets waves of pain it will radiate up into her chest. She has had nausea and vomiting. Denies diarrhea. Denies urinary symptoms. Related Data Home Medications Medication Instructions Recorded Confirmed etonogestrel 68 mg subdermal 1 dose subdermal DIRECTED 12/04/20 09/03/21 implant (Nexplanon) control Previous Rx's Medication Instructions Recorded cetirizine 10 mg tablet (Zyrtec) 10 mg PO DAILY PRN allergy 09/03/21 symptoms #30 tabs fluticasone propionate 50 See Rx Instructions .Route 12/02/21 mcg/actuation nasal .COMPLEX #48 mL spray,suspension Allergies Allergy/AdvReac Type Severity Reaction Status Date / Time pecan nut Allergy Unknown Verified 02/04/22 16:47 red dye Allergy Unknown -- Verified 02/04/22 16:47 [facility] Disclaimer: The information contained in this section may have been updated after the patient was seen, as this information can be updated by other users. 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
--- NOTE | 2022-02-04 19:04 | XR_ITS ---
PROCEDURE INFORMATION: Exam: XR Chest Exam date and time: 02/04/2022 7:04 PM Age: 26 years old Clinical indication: Cough and fever; Additional info: Cough, fever TECHNIQUE: Imaging protocol: Radiologic exam of the chest. Views: 2 views. COMPARISON: CT ABDOMEN PELVIS W CON 02/04/2022 6:44 PM FINDINGS: Lungs: Unremarkable. No consolidation. Pleural spaces: Unremarkable. No pleural effusion. No pneumothorax. Heart/Mediastinum: Unremarkable. No cardiomegaly. Bones/joints: Unremarkable. IMPRESSION: No acute findings.
--- NOTE | 2022-02-04 19:19 | PC.NURSE ---
shift change report given to carmencita,rn leia,rn and bravorn
[2022-02-04 19:22] LABS: Coronavirus 19, PCR Not Detected (NotDetected); Influenza A, PCR Not Detected (NotDetected); Influenza B, PCR Not Detected (NotDetected)
[2022-02-04 19:56] LABS: Strep Scrn Group A (Rapid) Negative (Negative)
[2022-02-04 21:37] VITALS: BP 120/85; PULSE 76; RESP 16; TEMP 36.6; O2SAT 98
== END 2022-02-04 21:40 | disposition home or self-care (01) ==
LOC: UTC 16:43 → ER 17:58
PROVIDERS: Emergency Provider Emergency Medicine
DX: N83.201 Unspecified ovarian cyst, right side (principal); B34.9 Viral infection, unspecified
CPT/HCPCS: 71046; 74177; 80048; 83690; 84484; 84703; 85025; 87430; 93005; 96374; 99285; C9803; Q9967; U0003; U0005

== ENCOUNTER → 2022-03-05 10:34 | Outpatient (CLI) | payer MEDICAID, SELFPAY | PROVIDERS: PCP Nurse Practitioner Family; Visit Provider Nurse Practitioner Family | DX: R42 Dizziness and giddiness (principal); M54.9 Dorsalgia, unspecified; M54.50 Low back pain, unspecified | CPT/HCPCS: 87086; C9803; U0003; U0005 ==

== ENCOUNTER → 2022-03-25 12:00 | Outpatient (CLI) | payer MEDICAID, SELFPAY | PROVIDERS: PCP Student in an Organized Health Care Education/Training Program; Visit Provider Student in an Organized Health Care Education/Training Program | DX: J02.9 Acute pharyngitis, unspecified (principal); J02.0 Streptococcal pharyngitis | CPT/HCPCS: 87070; C9803; U0003; U0005 ==

== ENCOUNTER → 2022-04-07 13:46 | Outpatient (CLI) | payer MEDICAID, SELFPAY ==
--- NOTE | 2022-04-07 13:46 | US_ITS ---
FINAL REPORT TECHNIQUE: Sonographic images of the pelvis were obtained transvaginally. CLINICAL HISTORY: Follow up on Left Ovarian Cyst COMPARISON: 01/13/2020 FINDINGS: The uterus is anteverted and anteflexed. It measures 7.3 x 4.2 x 3.0 cm. The endometrial stripe measures 3 mm. There is a small amount of fluid within the endometrial cavity which can be normal in a premenopausal patient. The myometrium is homogeneous. The cervix is within normal limits. The right ovary measures 3.4 x 3.0 x 2.1 cm. There are cysts and follicles with the largest measuring 2.3 cm. The left ovary measures 2.9 x 2.1 x 1.4 cm. There are several small follicles. Color imaging to the ovaries is within normal limits. There is no free fluid. IMPRESSION: 1. Small amount of fluid within the endometrial cavity. 2. Right ovarian cyst which is similar in appearance from the prior exam and may still be functional. Consider follow-up. Reviewed, Interpreted and Dictated by Cassandra Sen MD Transcribed by Lory Esparza Authenticated and [facility]
== END ==
PROVIDERS: PCP Student in an Organized Health Care Education/Training Program; Visit Provider Nurse Practitioner Obstetrics & Gynecology
DX: N83.202 Unspecified ovarian cyst, left side (principal)
CPT/HCPCS: 76830

== ENCOUNTER → 2022-05-28 18:34 | Outpatient (CLI) | payer MEDICAID, SELFPAY ==
[2022-05-31 17:27] LABS: Hep A Ab, IgM Negative; Hepatitis B Core Antibody IgM Negative; Hepatitis B Surface Antigen Negative; Hepatitis C Antibody Non Reactive
== END ==
PROVIDERS: PCP Nurse Practitioner Family; Visit Provider Nurse Practitioner Family
DX: R68.83 Chills (without fever) (principal); J02.9 Acute pharyngitis, unspecified; R05.9 Cough, unspecified; R09.89 Other specified symptoms and signs involving the circulatory and respiratory systems; K75.9 Inflammatory liver disease, unspecified
CPT/HCPCS: 80074

== ENCOUNTER → 2022-06-04 17:31 | Outpatient (CLI) | payer MEDICAID, SELFPAY ==
--- NOTE | 2022-06-04 17:35 | US_ITS ---
FINAL REPORT CLINICAL HISTORY: lower abd pain, history of ovarian cyst FINDINGS: Transvaginal sonographic images of the pelvis were obtained. The uterus measures 7.8 x 3.0 x 5.0 cm. No mass is identified. The endometrium measures 17 mm. The bilateral ovaries appear within normal limits with color and Doppler flow visualized. There is a small amount of fluid in the endometrium which is nonspecific. There is a small amount of free fluid, may be physiologic or reactive. IMPRESSION: Endometrial fluid which is nonspecific. Small free fluid, may be physiologic or reactive. Reviewed, Interpreted and Dictated by David Restrepo III, MD Transcribed by Griselda Shea Authenticated and [facility]
== END ==
PROVIDERS: PCP Nurse Practitioner Family; Visit Provider Nurse Practitioner Family
DX: M54.9 Dorsalgia, unspecified (principal); R10.30 Lower abdominal pain, unspecified
CPT/HCPCS: 76830

== ENCOUNTER → 2022-09-25 09:27 | Outpatient (CLI) | payer MEDICAID, SELFPAY ==
[2022-09-25 11:15] LABS: HCG Qualitative, Serum Negative (Negative)
== END ==
PROVIDERS: PCP Emergency Medicine; Visit Provider Nurse Practitioner Family
DX: Z32.00 Encounter for pregnancy test, result unknown (principal)
CPT/HCPCS: 36415; 84703

== ENCOUNTER → 2022-10-16 23:38 | Outpatient (CLI) | payer MEDICAID, SELFPAY ==
[2022-10-20 07:28] LABS: Neisseria gonorrhoeae, NAA Negative (Negative)
== END ==
PROVIDERS: PCP Nurse Practitioner Obstetrics & Gynecology; Visit Provider Nurse Practitioner Obstetrics & Gynecology
DX: Z72.51 High risk heterosexual behavior (principal)
CPT/HCPCS: 87491; 87591

== ENCOUNTER → 2022-10-24 13:07 | Outpatient (CLI) | payer MEDICAID, SELFPAY ==
--- NOTE | 2022-10-24 13:07 | US_ITS ---
PROCEDURE: US TRANSVAGINAL CLINICAL INDICATION: pelvic pain COMPARISON: No exams were available for comparison FINDINGS: Transvaginal sonographic images of the pelvis were obtained. UTERUS: 8.0 x 5.2 cmx 3.3 cm with a combined endometrial thickness of 4.7mm. There are several small echogenic foci in the posterior myometrium. scar is noted. LEFT OVARY: 3.6 cmx4.4 cmx3.0 cm with a volume of 25ml. Follicle 1 measures 3.3 cm x 3.8 cm x 2.4 cm Follicle 2 measures 1.7 cm x 1.0 cm x 1.4 cm RIGHT OVARY: 3.2 cmx 3.2 cmx1.5 cm with a volume of 7.8ml. Follicle measuring 1.3 cm x 0.8 cm x 1.2 cm Both ovaries are seen and appear normal. Doppler flow to both ovaries are seen. There is no fluid in the cul-de-sac. IMPRESSION: 1. Anteverted uterus normal in shape and size. 2. There are several small echogenic foci in the posterior myometrium. 3. The left ovary has a dominant follicle measuring 3.8 cm. 4. The right ovary appears normal and has a 1.3 cm follicle with multiple other small follicles. 5. No fluid in the cul-de-sac. Dictated by: Miguel Gomez MD 10/28/2022 10:16 Miguel Gomez MD in OV 10/28/2022 10:16
== END ==
PROVIDERS: PCP Nurse Practitioner Obstetrics & Gynecology; Visit Provider Nurse Practitioner Obstetrics & Gynecology
DX: R10.2 Pelvic and perineal pain (principal)
CPT/HCPCS: 76830

== ENCOUNTER 2022-11-09 13:00 | Emergency (ER) | payer MEDICAID, SELFPAY ==
[2022-11-09 13:40] VITALS: BP 121/73; PULSE 118; RESP 19; TEMP 37.4; O2SAT 99; BMI 20.8
[2022-11-09 14:04] LABS: UTC Strep Screen (Rapid) Negative (Negative)
[2022-11-09 14:05] LABS: UTC Influenza A Antigen Negative (Negative); UTC Influenza B Antigen Negative (Negative)
--- NOTE | 2022-11-09 14:11 | EXP.UTC ---
Discharge Plan Disposition Patient Disposition: Home, Self-Care Condition: Good Prescriptions Prescriptions: New benzonatate 100 mg capsule 100 mg PO TID PRN (Reason: cough) Qty: 30 0RF methylprednisolone [Medrol (Ishaan)] 4 mg tablets,dose pack See Rx Instructions .Route .COMPLEX 6 Days Qty: 21 0RF Rx Instructions: taper pack; amoxicillin-pot clavulanate 875-125 mg Tablet 1 tab PO Q12H 7 Days Qty: 14 0RF Referrals Follow up/Referrals: Moe Vasquez MD [Primary Care Provider] - See instructions Activity Restrictions/Add. Instructions Additional Instructions/Restrictions: *Monitor Temp, Over the counter Motrin or Tylenol as directed/as needed Tylenol every 4 hours and Motrin every 6 hours (as long as your family doctor has told you that you can take it) for fever or pain. and straight to ER if unable to lower temp less than 101.0 after medication given *Warm salt water gargles may help to soothe the throat *Throat Lozenges? *Warm fluids like tea with honey may help to soothe the throat? *Sleep elevated *Humidifier/Vaporizer Your throat swab was sent for culture. Those results are typically sent to your primary care. Be sure to follow up in 2-3 days with your family doctor/primary care physician if no improvement so they can review those result and treat if necessary. If you don?t have a primary care doctor, I recommend you get one but in the mean time, you will have to return to a walk in clinic Follow up IMMEDIATELY for new or worsening symptoms or no Noticeable improvement over the next 48-72 hours. 911 for difficulty breathing or swallowing Clinical Impressions Clinical Impression: Sinusitis Qualifiers: Sinusitis location: unspecified location Chronicity: unspecified Qualified Code(s): J32.9 - Chronic sinusitis, unspecified Instructions Patient Instructions: DI for Sinusitis, Sinusitis Discharge ED Provider: Marcelina Guerrero [facility] General Stated complaint: body ache, soa, fever, weakness Mode of Arrival: Ambulatory Source of Information: Patient Limitations: No Limitations Time Seen by Provider: 11/09/22 14:11 Description of Symptoms (Recalled from Triage Doc. by RN): sore throat, coughing HEENT Symptoms (Recalled from RN notes): Yes Resp Symptoms (Recalled from RN notes): No Skin Symptoms (Recalled from RN notes): No MS Symptoms (Recalled from RN notes): No Functional Status (Recalled from RN notes): n/a History of Present Illness Provider Complaint: Patient states she has been having sore throat, sinus congestion, cough and states that she feels like it is trying to move into her chest area State that she hasnt been coughing anything up and has had low grade fever Related Data Previous Rx's Medication Instructions Recorded amoxicillin 875 mg-potassium 1 tab PO Q12H 7 days #14 tabs 11/09/22 clavulanate 125 mg tablet benzonatate 100 mg capsule 100 mg PO TID PRN cough #30 caps 11/09/22 methylprednisolone 4 mg tablets in See Rx Instructions .Route 11/09/22 a dose pack (Medrol (Ishaan)) .COMPLEX 6 days #21 tabs Allergies Allergy/AdvReac Type Severity Reaction Status Date / Time pecan nut Allergy Unknown Verified 11/09/22 13:53 red dye Allergy Unknown -- Verified 11/09/22 13:53 Worker's Comp Is this a Worker's Comp case?: No [facility] Disclaimer: The information contained in this section may have been updated after the patient was seen, as this information can be updated by other users. Medical History Anxiety Ovarian cyst Surgical History History of delivery Family History Other Seizures 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 Smoking Status: Current every day smoker tobacco type: cigarettes packs per day: 1 alcohol intake: curr
[2022-11-09 14:20] VITALS: BP 121/73; PULSE 118; RESP 18; TEMP 37.4; O2SAT 99
== END 2022-11-09 14:20 | disposition home or self-care (01) ==
PROVIDERS: Emergency Provider Nurse Practitioner; PCP Internal Medicine Adolescent Medicine
DX: J01.90 Acute sinusitis, unspecified (principal); R50.9 Fever, unspecified; F17.210 Nicotine dependence, cigarettes, uncomplicated; F41.9 Anxiety disorder, unspecified; R05.9 Cough, unspecified
CPT/HCPCS: 87804; 87880; 99212; 99214; G0463

== ENCOUNTER → 2022-12-11 11:45 | Outpatient (CLI) | payer MEDICAID, SELFPAY ==
[2022-12-11 13:45] LABS: HCG,Quantitative < 2 mIU/ml (0-5.42)
== END ==
PROVIDERS: Obstetrics & Gynecology; Visit Provider Nurse Practitioner Family
DX: N92.6 Irregular menstruation, unspecified (principal); Z32.00 Encounter for pregnancy test, result unknown
CPT/HCPCS: 36415; 84702

== ENCOUNTER 2022-12-31 17:12 | Emergency (ER) | payer MEDICAID, SELFPAY ==
[2022-12-31 17:15] VITALS: BP 123/79; PULSE 68; RESP 18; TEMP 36.7; O2SAT 96; BMI 20.3
--- NOTE | 2022-12-31 17:29 | EXP.UTC ---
Discharge Plan Disposition Patient Disposition: Home, Self-Care Condition: Good Prescriptions Prescriptions: New ondansetron 4 mg Tablet,Disintegrating 4 mg PO Q8H PRN (Reason: Nausea) Qty: 12 0RF ibuprofen [ibuprofen] 600 mg tablet 600 mg PO Q6HP PRN (Reason: Mild Pain) Qty: 30 0RF Referrals Follow up/Referrals: Provider,Referral, MD [Primary Care Provider] - See instructions Activity Restrictions/Add. Instructions Additional Instructions/Restrictions: Drink plenty of fluids. Take tylenol or ibuprofen for pain or fever. Take the medications as directed. Follow up with your regular doctor. GO TO THE ER FOR ANY WORSENING SYMPTOMS Clinical Impressions Clinical Impression: Acute viral syndrome Stand Alone Forms Stand Alone Forms: Work/School Release Instructions Patient Instructions: DI for Viral Syndrome Discharge ED Provider: Tuan Burnham [facility] General Stated complaint: dizzy, h/a Time Seen by Provider: 12/31/22 17:29 History of Present Illness Provider Complaint: He states that for the past 1 day he has had body aches, chills, fever and malaise. Related Data Previous Rx's Medication Instructions Recorded ibuprofen 600 mg tablet 600 mg PO Q6HP PRN Mild Pain #30 12/31/22 tabs ondansetron 4 mg disintegrating 4 mg PO Q8H PRN Nausea #12 tabs 12/31/22 tablet Allergies Allergy/AdvReac Type Severity Reaction Status Date / Time amoxicillin Allergy Intermediate Swelling Verified 12/31/22 17:36 of Lip/Tongue/Throat pecan nut Allergy Unknown Verified 12/31/22 17:36 red dye Allergy Unknown -- Verified 12/31/22 17:36 [facility] Disclaimer: The information contained in this section may have been updated after the patient was seen, as this information can be updated by other users. Medical History (Updated 12/31/22 @ 17:50 by Tuan Burnham APRN) Anxiety Ovarian cyst Seizures Surgical History History of delivery Family History Other No significant family history 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 Smoking Status: Current every day smoker tobacco type: cigarettes packs per day: 1 alcohol intake: current substance use type: denies use current occupational status: employed Travel in the last 8 weeks: None household members: family housing: house ROS Obtained: Yes All systems reviewed & no additional complaints except as documented Constitutional Constitutional: Reports chills and Reports fever(s) Eyes Eyes: Denies eye discharge ENT Ears, Nose, Mouth, and Throat: Reports as per HPI Cardiovascular Cardiovascular: Denies chest pain Respiratory Respiratory: Denies chest congestion and Reports cough Gastrointestinal Gastrointestingal: Reports nausea; Denies abdominal pain, constipation, cramping, diarrhea or vomiting Musculoskeletal Musculoskeletal: Denies arthralgias Integumentary/Breasts Skin/Breast: Denies rash Neurologic Neurologic: Denies paresthesias Physical Exam General General appearance: alert and in no apparent distress Head Head exam: atraumatic, normocephalic and normal inspection Eye Eye exam: Present normal appearance, PERRL and EOMI ENT ENT exam: Present normal exam, normal oropharynx, mucous membranes moist, TM's normal bilaterally and normal external ear exam Neck Neck exam: Present normal inspection, full ROM and trachea midline; Absent meningismus or lymphadenopathy Chest Chest inspection: Present normal inspection and symmetric chest wall rise; Absent tenderness Respiratory Respiratory exam: Present normal lung sounds bilaterally; Absent respiratory distress Cardiovascular Cardiovascular exam: Present regular rate and normal rhythm; Absent JVD Abdominal Exam Abdominal exam: Present soft and normal bowel sounds; Absent distention, tenderness or guarding Extremities Exam
[2022-12-31 17:37] LABS: UTC Strep Screen (Rapid) Negative (Negative)
[2022-12-31 17:38] LABS: UTC Influenza A Antigen Negative (Negative); UTC Influenza B Antigen Negative (Negative)
[2022-12-31 17:57] VITALS: BP 123/79; PULSE 68; RESP 18; TEMP 36.7; O2SAT 96
== END 2022-12-31 17:57 | disposition home or self-care (01) ==
PROVIDERS: Emergency Provider Nurse Practitioner Family
DX: R05.9 Cough, unspecified (principal); R50.9 Fever, unspecified; B34.9 Viral infection, unspecified; F17.210 Nicotine dependence, cigarettes, uncomplicated
CPT/HCPCS: 87635; 87804; 87880; 99212; 99214; G0463

== ENCOUNTER 2023-02-17 18:14 | Emergency (ER) | payer MEDICAID, SELFPAY ==
[2023-02-17 19:05] VITALS: BP 103/72; PULSE 72; RESP 16; TEMP 36.8; O2SAT 98; BMI 20.3
--- NOTE | 2023-02-17 19:07 | ED_ITS ---
Discharge Plan Disposition Patient Disposition: Home, Self-Care Condition: Good Prescriptions Prescriptions: New unsxxvnkynpqspc-rzzephrnb-FW [Bromfed DM] 2-30-10 mg/5 mL Syrup 5 ml PO Q6H PRN (Reason: Cough) Qty: 240 0RF ondansetron 4 mg Tablet,Disintegrating 4 mg PO Q8H PRN (Reason: Nausea) Qty: 12 0RF No Action ondansetron 4 mg Tablet,Disintegrating 4 mg PO Q8H PRN (Reason: Nausea) Qty: 12 0RF ibuprofen [ibuprofen] 600 mg tablet 600 mg PO Q6HP PRN (Reason: Mild Pain) Qty: 30 0RF Referrals Follow up/Referrals: Km Navarro APRN [Primary Care Provider] - See instructions Activity Restrictions/Add. Instructions Additional Instructions/Restrictions: Drink plenty of fluids. Take tylenol or ibuprofen for pain or fever. Take the medications as directed. Follow up with your regular doctor. GO TO THE ER FOR ANY WORSENING SYMPTOMS Clinical Impressions Clinical Impression: Acute viral syndrome Instructions Patient Instructions: DI for Viral Syndrome, Ondansetron Discharge ED Provider: Tuan Burnham [facility] General Stated complaint: vomitting, body aches Time Seen by Provider: 02/17/23 19:07 History of Present Illness Provider Complaint: She states that for the past 1 day she has had fever, chills, cough, scratchy sore throat and malaise. Related Data Previous Rx's Medication Instructions Recorded ibuprofen 600 mg tablet 600 mg PO Q6HP PRN Mild Pain #30 12/31/22 tabs ondansetron 4 mg disintegrating 4 mg PO Q8H PRN Nausea #12 tabs 12/31/22 tablet yfugoagnqqefmeg-cmkguuilpjcdojm-XM 5 ml PO Q6H PRN Cough #240 mL 02/17/23 2 mg-30 mg-10 mg/5 mL oral syrup (Bromfed DM) ondansetron 4 mg disintegrating 4 mg PO Q8H PRN Nausea #12 tabs 02/17/23 tablet Allergies Allergy/AdvReac Type Severity Reaction Status Date / Time amoxicillin Allergy Intermediate Swelling Verified 12/31/22 17:36 of Lip/Tongue/Throat pecan nut Allergy Unknown Verified 12/31/22 17:36 red dye Allergy Unknown -- Verified 12/31/22 17:36 [facility] Disclaimer: The information contained in this section may have been updated after the patient was seen, as this information can be updated by other users. Medical History (Updated 02/17/23 @ 19:42 by Tuan Burnham APRN) Anxiety Ovarian cyst Seizures Surgical History History of delivery Family History Other No significant family history 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 Smoking Status: Current every day smoker tobacco type: cigarettes packs per day: 1 alcohol intake: current substance use type: denies use current occupational status: employed Travel in the last 8 weeks: None household members: family housing: house ROS Obtained: Yes All systems reviewed & no additional complaints except as documented Constitutional Constitutional: Reports chills and Reports fever(s) Eyes Eyes: Denies eye discharge ENT Ears, Nose, Mouth, and Throat: Reports as per HPI Cardiovascular Cardiovascular: Denies chest pain Respiratory Respiratory: Denies chest congestion and Reports cough Gastrointestinal Gastrointestingal: Reports nausea; Denies abdominal pain, constipation, cramping, diarrhea or vomiting Musculoskeletal Musculoskeletal: Denies arthralgias Integumentary/Breasts Skin/Breast: Denies rash Neurologic Neurologic: Denies paresthesias Physical Exam General General appearance: alert and in no apparent distress Head Head exam: atraumatic, normocephalic and normal inspection Eye Eye exam: Present normal appearance, PERRL and EOMI ENT ENT exam: Present normal exam, normal oropharynx, mucous membranes moist, TM's normal bilaterally and normal external ear exam Neck Neck exam: Present normal inspection, full ROM and trachea midline; Absent meningismus or lymphadenopathy Chest Chest inspection: Present normal inspection and symmetric chest wall rise; Absent tenderness Respiratory Respiratory exam: Present normal lung sounds bilaterally; Absent respiratory distress Cardiovascular Cardiovascular exam: Present regular rate and normal rhythm; Absent JVD Abdominal Exam Abdominal exam: Present soft and normal bowel sounds; Absent distention, tenderness or guarding Extremities Exam Extremities exam: Present normal inspection, full ROM and normal capillary refill; Absent calf tenderness Back Exam Back exam: Present normal inspection; Absent tenderness Neurological Exam Neurological exam: Present alert and oriented X3 Psychiatric Psychiatric exam: Present normal affect and normal mood Skin Skin exam: Present warm, dry, intact and normal color Lymphatic Lymphatic Findings: no adenopathy Medical Decision Making Medical Records Medical records reviewed: No I reviewed the patient's medical records. Devan Inquiry Pt receiving controlled substance: No Lab Data Lab results reviewed: Yes I reviewed the patient's lab results.
[2023-02-17 19:15] LABS: UTC Influenza A Antigen Negative (Negative); UTC Influenza B Antigen Negative (Negative); UTC Pregnancy Test, Urine Negative (Negative)
[2023-02-17 20:04] VITALS: BP 103/72; PULSE 72; RESP 16; TEMP 36.8; O2SAT 98
== END 2023-02-17 20:05 | disposition home or self-care (01) ==
PROVIDERS: Emergency Provider Nurse Practitioner Family; PCP Nurse Practitioner Family
DX: R11.2 Nausea with vomiting, unspecified (principal); R05.9 Cough, unspecified; R50.9 Fever, unspecified; R07.0 Pain in throat; R53.81 Other malaise; M79.18 Myalgia, other site; B34.9 Viral infection, unspecified; F17.210 Nicotine dependence, cigarettes, uncomplicated
CPT/HCPCS: 81025; 87635; 87804; 99212; 99214; G0463

== ENCOUNTER 2023-02-23 19:44 | Emergency (ER) | payer MEDICAID, SELFPAY ==
[2023-02-23 19:56] VITALS: BP 131/88; PULSE 73; RESP 18; TEMP 36.6; O2SAT 100; BMI 20.3
--- NOTE | 2023-02-23 19:56 | ECG_ITS ---
APPROVED REPORT Exam: Resting ECG HR:73 bpm ECG Measurements Heart Rate 73 AXES AZ 148 P 62 QRSd 97 QRS 75 QT 395 T 66 QTc 420 Conclusion SINUS RHYTHM POSSIBLE RIGHT ATRIAL ENLARGEMENT [0.25mV P-WAVE] POSSIBLE LEFT ATRIAL ENLARGEMENT [-0.1mV P-WAVE IN V1/V2] POSSIBLE RIGHT VENTRICULAR CONDUCTION DELAY [RSR (QR) IN V1/V2] BORDERLINE ECG UNCONFIRMED REPORT Electronically signed by : Moe Vasquez MD 02/26/2023 20:41:18
--- NOTE | 2023-02-23 20:23 | XR_ITS ---
PROCEDURE INFORMATION: Exam: XR Chest Exam date and time: 02/23/2023 8:53 PM Age: 27 years old Clinical indication: Cough; Additional info: Cough. Smoker x 10 yrs TECHNIQUE: Imaging protocol: Radiologic exam of the chest. Views: 2 views. COMPARISON: CR XR CHEST 2V 02/04/2022 7:04 PM FINDINGS: Lungs: Unremarkable. No consolidation. Pleural spaces: Unremarkable. No pleural effusion. No pneumothorax. Heart/Mediastinum: Unremarkable. No cardiomegaly. Bones/joints: Unremarkable. IMPRESSION: No acute findings.
[2023-02-23 20:30] VITALS: PULSE 77; RESP 15; O2SAT 98
[2023-02-23 20:39] LABS: Basophils % 1.2 % (0.1-2.0); Eosinophils % 0.4 % (0.1-12.0); Hemoglobin 14.8 g/dL (12.2-16.2); Lymphocytes # 1.2 K/mm3 (0.7-4.5); Lymphocytes % 39.4 % (10-50); Mean Corpuscular HGB Conc 33.6 g/dL (31.8-35.4); Mean Corpuscular Hemoglobin 29.9 pg (27.0-31.2); Mean Corpuscular Volume 89.2 fl (81-99); Mean Platelet Volume 8.7 fl (7.4-10.4); Monocytes # 0.4 K/mm3 (0.1-1.0); Monocytes % 11.4 % (1.7-9.3); Neutrophils # 1.5 K/mm3 (1.8-7.8); Neutrophils % 47.7 % (37.0-80.0); Platelet Count 131 K/mm3 (142-424); Red Blood Count 4.94 M/mm3 (4.20-5.40); White Blood Count 3.2 K/mm3 (4.8-10.8)
[2023-02-23 20:41] LABS: Chloride 102 mmol/L (98-107); Sodium 139 mmol/L (136-145)
[2023-02-23 20:42] LABS: Potassium 3.2 mmoL/L (3.5-5.1)
[2023-02-23 20:44] LABS: Coronavirus 19, PCR Not Detected (NotDetected); Influenza A, PCR Not Detected (NotDetected)
[2023-02-23 20:44] LABS: Alanine Aminotransferase 21 U/L (12-78); Albumin Level 4.1 g/dl (3.5-5.0); Albumin/Globulin Ratio 1.5 (1.1-1.8); Alkaline Phosphatase 46 U/L (38-126); Anion Gap 13.2 mEq/L (5-15); Aspartate Amino Transferase 27 U/L (14-36); Bilirubin,Total 0.3 mg/dl (0.2-1.3); Blood Urea Nitrogen 7 mg/dl (7-17); Carbon Dioxide 27 mmol/L (22.0-30.0); Creatinine Clearance Estimated 133 mL/min (50-200); Estimated Glomerular Filt Rate 122 ml/min (>60); GFR (African American) 147 ML/MIN (>60); Globulin 2.8 g/dL (1.3-3.2); Total Protein,Serum 6.9 g/dl (6.3-8.2)
[2023-02-23 20:45] LABS: Calcium 8.2 mg/dl (8.4-10.2); Glucose 103 mg/dl (74-100)
[2023-02-23 20:52] LABS: HCG Qualitative, Serum Negative (Negative)
--- NOTE | 2023-02-23 20:55 | HMH.EDGENADL ---
Discharge Plan Disposition Patient Disposition: Home, Self-Care Prescriptions Prescriptions: New ipbzuscmzgbacdg-krpwigtkv-XF [Bromfed DM] 2-30-10 mg/5 mL syrup 5 ml PO Q6H PRN (Reason: cold symptoms) Qty: 118 0RF No Action ybswfhhlwxaccyc-bwlfbxqqi-SF [Bromfed DM] 2-30-10 mg/5 mL Syrup 5 ml PO Q6H PRN (Reason: Cough) Qty: 240 0RF ondansetron 4 mg Tablet,Disintegrating 4 mg PO Q8H PRN (Reason: Nausea) Qty: 12 0RF ondansetron 4 mg Tablet,Disintegrating 4 mg PO Q8H PRN (Reason: Nausea) Qty: 12 0RF ibuprofen [ibuprofen] 600 mg tablet 600 mg PO Q6HP PRN (Reason: Mild Pain) Qty: 30 0RF Referrals Follow up/Referrals: Km Navarro APRN [Primary Care Provider] - See instructions Activity Restrictions/Add. Instructions Additional Instructions/Restrictions: At this time it was felt you are safe to be discharged home. If new or worsening symptoms please do not hesitate to return the emergency department. If symptoms persist please follow-up with your family doctor as you are able. Please take your medication as prescribed. Clinical Impressions Clinical Impression: Viral respiratory infection, Acute hypokalemia Discharge ED Provider: David Campbell General Adult HPI General Chief complaint: Upper Respiratory Infection Stated complaint: congestion, runny nose, sore throat, body aches Time Seen by Provider: 02/23/23 19:47 Mode of Arrival: Ambulatory Source of Information: Patient Limitations: No Limitations Description of Symptoms (Recalled from ER Triage Doc. by RN): pt states she has been sick x2d. pt c/o a ONEAL, sternal chest pain that is worse with breathing, a nonproductive cough and SOA. pts LMP ~01/17 History of Present Illness HPI narrative: Patient is a 27-year-old female with no chronic comorbidities presents emergency department for evaluation of cough, chest pain, headache. Onset was acute, over the last few days. Cough is nonproductive, there is associated shortness of breath. Last period was towards the end of December. Headache is generalized. Chest pain has been continuous throughout the course and is worse with deep inspiration. No other acute complaints at this time. Related Data Previous Rx's Medication Instructions Recorded ibuprofen 600 mg tablet 600 mg PO Q6HP PRN Mild Pain #30 12/31/22 tabs ondansetron 4 mg disintegrating 4 mg PO Q8H PRN Nausea #12 tabs 12/31/22 tablet zjwfbzgwmhninis-pqukskvhrsantqe-ZJ 5 ml PO Q6H PRN Cough #240 mL 02/17/23 2 mg-30 mg-10 mg/5 mL oral syrup (Bromfed DM) ondansetron 4 mg disintegrating 4 mg PO Q8H PRN Nausea #12 tabs 02/17/23 tablet gealcceydkzqixo-lzsjlhwzvdmnxkm-ON 5 ml PO Q6H PRN cold symptoms #118 02/23/23 2 mg-30 mg-10 mg/5 mL oral syrup mL (Bromfed DM) Allergies Allergy/AdvReac Type Severity Reaction Status Date / Time amoxicillin Allergy Intermediate Swelling Verified 12/31/22 17:36 of Lip/Tongue/Throat pecan nut Allergy Unknown Verified 12/31/22 17:36 red dye Allergy Unknown -- Verified 12/31/22 17:36 Penicillins Allergy Verified 02/23/23 20:09 PFS PFS Disclaimer: The information contained in this section may have been updated after the patient was seen, as this information can be updated by other users. Medical History (Updated 02/23/23 @ 21:19 by David Campbell MD) Anxiety Ovarian cyst Seizures Surgical History History of delivery Family History Other No significant family history 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 Smoking Status: Current every day smoker tobacco type: cigarettes packs per day: 1 alcohol intake: current substance use type: denies use current occupational status: employed Travel in the last 8 weeks: None household members: family housing: house ROS Obtained: Yes Systems reviewed as appropriate & no additional complaints except as documented Physical Exam General General appearance: alert and in no apparent distress Head Head exam: atraumatic and normocephalic Eye Eye exam: Present PERRL and EOMI ENT ENT exam: Present mucous membranes moist; Absent normal oropharynx (Erythematous posterior oropharynx, uvula midline, no exudate) Neck Neck exam: Present normal inspection Chest Chest inspection: Present normal inspection and symmetric chest wall rise Respiratory Respiratory exam: Present normal lung sounds bilaterally; Absent respiratory distress Cardiovascular Cardiovascular exam: Present regular rate and normal rhythm Abdominal Exam Abdominal exam: Present soft Extremities Exam Extremities exam: Present normal inspection Neurological Exam Neurological exam: Present alert; Absent motor sensory deficit Psychiatric Psychiatric exam: Present normal affect Skin Skin exam: Present warm and dry Medical Decision Making Devan Inquiry Pt receiving controlled substance: No Vital Signs: 02/23/23 19:56 02/23/23 20:30 Temperature 97.9 F Temperature Source Oral Pulse Rate 77 Pulse Rate [Right] 73 Respiratory Rate 18 15 Blood Pressure [Right Arm] 131/88 Blood Pressure Mean [Right Arm] 102 Blood Pressure Source [Right Arm] Automatic Cuff Blood Pressure Position [Right Arm] Sitting 02 Sat by Pulse Oximetry 100 98 Oxygen Delivery Method Room Air Lab Data Lab Results 02/23/23 20:02: WBC 3.2 L, RBC 4.94, Hgb 14.8, Hct 44.0, MCV 89.2, MCH 29.9, MCHC 33.6, RDW 13.0, Plt Count 131 L, MPV 8.7, Neut % (Auto) 47.7, Lymph % (Auto) 39.4, [place] % (Auto) 11.4 H, Eos % (Auto) 0.4, Baso % (Auto) 1.2, Neut # (Auto) 1.5 L, Lymph # (Auto) 1.2, [place] # (Auto) 0.4, Eos # (Auto) 0.0, Baso # (Auto) 0.0, Sodium 139, Potassium 3.2 L, Chloride 102, Carbon Dioxide 27, Anion Gap 13.2, BUN 7, Creatinine 0.60, Estimated Creat Clear 133, Estimated GFR 122, Est GFR ( Amer) 147, Glucose 103 H, Calcium 8.2 L, Total Bilirubin 0.3, AST 27, ALT 21, Alkaline Phosphatase 46, Troponin I < 0.01, Total Protein 6.9, Albumin 4.1, Globulin 2.8, Albumin/Globulin Ratio 1.5, Serum HCG, Qual Negative 02/23/23 20:02 02/23/23 20:02 Orders (Tests/Meds): ED MEDICATIONS Generic Name Dose Route Start Last Admin Trade Name Freq PRN Reason Stop Dose Admin Potassium Chloride 40 meq 02/23/23 21:14 Potassium Chloride 20meq Tab PO 02/23/23 21:15 ONCE ONE ORDERS Category Date Time Status CXR 2 view (NOT portable) [XR chest 2V] Stat Exams 02/23/23 20:23 Taken Beta HCG, Qual [HCG Qualitative, Serum] Stat Lab 02/23/23 20:02 Completed CBC w/Auto Diff [Complete Blood Count Auto Diff] Stat Lab 02/23/23 20:02 Completed CMP [Comprehensive Metabolic Panel] Stat Lab 02/23/23 20:02 Completed Rapid PCR Covid and Flu A/B Stat Lab 02/23/23 20:34 Received Trop I [Troponin I] Stat Lab 02/23/23 20:02 Completed Troponin I Q3H Lab 02/23/23 23:30 Ordered Troponin I Q3H Lab 02/24/23 02:30 Ordered Medical Decision Narrative: In summary patient is a 27-year-old female past medical history described above presents emergency department for evaluation of cough, chest pain, headache, rhinorrhea. Patient is hemodynamically stable nontoxic-appearing upon arrival, afebrile. Differential diagnosis includes ACS, pneumonia, viral syndrome, among others. Workup be conducted with chest x-ray, viral swab, EKG, troponin, hematologic labs. Initial inventions include Tylenol. Workup reviewed by me, hematologic labs are remarkable for mild hypokalemia which will be repleted orally. Chest x-ray informally interpreted by me, no acute large lobar opacity or pneumothorax. Initial troponin below detectable limit. Given duration of symptoms serial troponins are not indicated at this time as they would have been detectable by now, hCG is negative. Upon repeat evaluation patient continued to be well-appearing. Given this patient is appropriate for discharge at this time will be discharged with a course of Bromfed. Critical Care Critical Care Time Critical Care Time: No
[2023-02-23 20:57] LABS: Troponin I < 0.01 ng/ml (0.00-0.034)
[2023-02-23] MEDS: POTASSIUM CHLORIDE 20MEQ TAB 40 MEQ PO (21:24)
[2023-02-23 21:37] VITALS: BP 104/70; PULSE 69; RESP 16; TEMP 36.8
[2023-02-23 21:56] LABS: Influenza B, PCR Detected (NotDetected)
--- NOTE | 2023-02-24 05:54 | PC.NURSE ---
Attempted to call the pt to relay positive flu results, unable to reach her at this time.
== END 2023-02-23 21:39 | disposition home or self-care (01) ==
PROVIDERS: Emergency Provider Emergency Medicine; PCP Nurse Practitioner Family
DX: E87.6 Hypokalemia (principal); R51.9 Headache, unspecified; R07.9 Chest pain, unspecified; R09.81 Nasal congestion; B34.9 Viral infection, unspecified; R06.02 Shortness of breath; R05.9 Cough, unspecified; F17.210 Nicotine dependence, cigarettes, uncomplicated
CPT/HCPCS: 71046; 80053; 84484; 84703; 85025; 87636; 93005; 99285

== ENCOUNTER 2023-03-23 09:56 | Outpatient (CLI) | payer MEDICAID, SELFPAY ==
[2023-03-23 10:15] LABS: Basophils % 0.8 % (0.1-2.0); Eosinophils # 0.1 K/mm3 (0.0-0.4); Eosinophils % 1.5 % (0.1-12.0); Hematocrit 43.5 % (37.0-47.0); Hemoglobin 14.9 g/dL (12.2-16.2); Lymphocytes # 1.9 K/mm3 (0.7-4.5); Lymphocytes % 33.1 % (10-50); Mean Corpuscular HGB Conc 34.1 g/dL (31.8-35.4); Mean Corpuscular Hemoglobin 29.2 pg (27.0-31.2); Mean Corpuscular Volume 85.8 fl (81-99); Mean Platelet Volume 8.6 fl (7.4-10.4); Monocytes # 0.3 K/mm3 (0.1-1.0); Monocytes % 5.7 % (1.7-9.3); Neutrophils # 3.3 K/mm3 (1.8-7.8); Neutrophils % 58.9 % (37.0-80.0); Platelet Count 165 K/mm3 (142-424); Red Blood Count 5.08 M/mm3 (4.20-5.40); Red Cell Distribution Width 12.8 % (11.5-17.5); White Blood Count 5.6 K/mm3 (4.8-10.8)
[2023-03-23 10:33] LABS: Alanine Aminotransferase 15 U/L (12-78); Albumin Level 4.2 g/dl (3.5-5.0); Albumin/Globulin Ratio 1.8 (1.1-1.8); Alkaline Phosphatase 48 U/L (38-126); Anion Gap 10.8 mEq/L (5-15); Aspartate Amino Transferase 20 U/L (14-36); Bilirubin,Total 0.3 mg/dl (0.2-1.3); Blood Urea Nitrogen 8 mg/dl (7-17); Calcium 9.3 mg/dl (8.4-10.2); Carbon Dioxide 29 mmol/L (22.0-30.0); Chloride 104 mmol/L (98-107); Estimated Glomerular Filt Rate 101 ml/min (>60); GFR (African American) 122 ML/MIN (>60); Globulin 2.4 g/dL (1.3-3.2); Glucose 97 mg/dl (74-100); Magnesium 1.7 mg/dl (1.6-2.3); Potassium 3.8 mmoL/L (3.5-5.1); Sodium 140 mmol/L (136-145); Total Protein,Serum 6.6 g/dl (6.3-8.2)
[2023-03-23 11:04] LABS: Thyroid Stimulating Hormone 1.02 uIU/mL (0.465-4.68)
== END 2023-03-23 23:59 ==
LOC: LAB 09:56
PROVIDERS: PCP Nurse Practitioner Family; Visit Provider Obstetrics & Gynecology
DX: R10.2 Pelvic and perineal pain (principal)
CPT/HCPCS: 36415; 80053; 83735; 84443; 85025

== ENCOUNTER 2023-03-25 13:11 | Outpatient (CLI) | payer MEDICAID, SELFPAY ==
--- NOTE | 2023-03-25 13:11 | US_ITS ---
PROCEDURE: US TRANSVAGINAL CLINICAL INDICATION: Pelvic Pain COMPARISON: No exams were available for comparison FINDINGS: Transvaginal sonographic images of the pelvis were obtained. UTERUS: 8.7 cm x 5.3cmx 3.8 cm anteverted with a combined endometrial thickness of 9.6mm. There are couple of small hyperechoic areas adjacent to the endometrium. LEFT OVARY: 3.7 cmx2.9 cmx1.7cm with a volume of 9.2ml. RIGHT OVARY: 2.0cmx 2.5cmx1.7 cm with a volume of 4.5ml. There are multiple follicles on the right ovary. The largest measures 1.4 cm in size. Both ovaries are seen and appear normal. Doppler flow to both ovaries are seen. There is a small amount of fluid in the cul-de-sac measuring 3.0 cm by 3.1 cm. IMPRESSION: 1. Anteverted uterus normal in shape and size. The endometrium measures 9.6 mm. 2. There are a couple of small hyperechoic areas adjacent to the endometrium of questionable significance. 3. Both ovaries are seen and appear normal. The right ovary has a number of small follicles. 4. There is a small amount of fluid in the cul-de-sac. Dictated by: Miguel Gomez MD 03/25/2023 14:51 Miguel Gomez MD in [facility] 03/25/2023 14:51
== END 2023-03-25 23:59 ==
LOC: RAD 13:11
PROVIDERS: PCP Nurse Practitioner Family; Visit Provider Obstetrics & Gynecology
DX: R10.2 Pelvic and perineal pain (principal)
CPT/HCPCS: 76830

== ENCOUNTER 2023-04-08 09:54 | Outpatient (CLI) | payer MEDICAID, SELFPAY ==
[2023-04-08] MEDS: ALBUTEROL 0.083% 2.5 MG/3 ML NEB IH (10:47)
--- NOTE | 2023-04-08 10:47 | PC.NURSE ---
PFT and 6 Minute Walk Test completed without incident. Albuterol 0.083% given via HHN, per written protocol, Pt tolerated tx well.
== END 2023-04-08 23:59 ==
PROVIDERS: PCP Nurse Practitioner Family; Visit Provider Family Medicine
DX: R06.09 Other forms of dyspnea (principal)
CPT/HCPCS: 94060; 94618; 94726; 94729

== ENCOUNTER 2023-04-14 11:08 | Emergency (ER) | payer MEDICAID, SELFPAY ==
[2023-04-14 11:40] VITALS: BP 110/72; PULSE 80; RESP 16; TEMP 36.4; O2SAT 96; BMI 20.3
--- NOTE | 2023-04-14 12:20 | EXP.UTC ---
Discharge Plan Disposition Patient Disposition: Home, Self-Care Condition: Good Prescriptions Prescriptions: New prednisone 10 mg tablet 10 mg PO BID 3 Days Qty: 6 0RF azithromycin [Zithromax] 250 mg tablet 250 mg PO UD DOSE PK Qty: 6 0RF Rx Instructions: Take two (2) tablets today, then one (1) tablet days #2 thru #5 pemyudhlgqkkyjl-jbrdcxmqh-YU [Bromfed DM] 2-30-10 mg/5 mL Syrup 5 ml PO Q6H PRN (Reason: Cough) Qty: 240 0RF No Action albuterol sulfate [Ventolin HFA] 90 mcg/actuation HFA aerosol inhaler 1 inh inhalation Q6H PRN (Reason: shortness of breath or wheezing) Qty: 8.5 2RF Referrals Follow up/Referrals: Km Navarro APRN [Primary Care Provider] - See instructions Activity Restrictions/Add. Instructions Additional Instructions/Restrictions: Drink plenty of fluids. Take tylenol or ibuprofen for pain or fever. Take the medications as directed. Follow up with your regular doctor. GO TO THE ER FOR ANY WORSENING SYMPTOMS Clinical Impressions Clinical Impression: Acute viral syndrome, Strep throat exposure Stand Alone Forms Stand Alone Forms: Work/School Release Instructions Patient Instructions: DI for Viral Syndrome Discharge ED Provider: Tuan Burnham [facility] General Stated complaint: fever, body aches Time Seen by Provider: 04/14/23 11:53 History of Present Illness Provider Complaint: She states that for the past 2 days she has had fever, chills, body aches, sore throat and malaise. She has been exposed to strep throat. Related Data Previous Rx's Medication Instructions Recorded albuterol sulfate 90 mcg/actuation 1 inh inhalation Q6H PRN shortness 04/01/23 aerosol inhaler (Ventolin HFA) of breath or wheezing #8.5 grams azithromycin 250 mg tablet 250 mg PO UD DOSE PK #6 tabs 04/14/23 (Zithromax) cxufybywwgwiwpq-cjenashxocbnocs-HU 5 ml PO Q6H PRN Cough #240 mL 04/14/23 2 mg-30 mg-10 mg/5 mL oral syrup (Bromfed DM) prednisone 10 mg tablet 10 mg PO BID 3 days #6 tabs 04/14/23 Allergies Allergy/AdvReac Type Severity Reaction Status Date / Time amoxicillin Allergy Intermediate Swelling Verified 04/14/23 12:32 of Lip/Tongue/Throat pecan nut Allergy Unknown Verified 04/14/23 12:32 red dye Allergy Unknown -- Verified 04/14/23 12:32 Penicillins Allergy Verified 04/14/23 12:32 [facility] Disclaimer: The information contained in this section may have been updated after the patient was seen, as this information can be updated by other users. Medical History Anxiety Ovarian cyst Seizures Surgical History History of delivery x2 Family History Mother Tumor of thyroid Other No significant family history 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 Smoking Status: Current every day smoker tobacco type: cigarettes packs per day: 1 alcohol intake: current substance use type: denies use current occupational status: employed Travel in the last 8 weeks: None household members: family housing: house ROS Obtained: Yes All systems reviewed & no additional complaints except as documented Constitutional Constitutional: Reports chills and Reports fever(s) Eyes Eyes: Denies eye discharge ENT Ears, Nose, Mouth, and Throat: Reports as per HPI Cardiovascular Cardiovascular: Denies chest pain Respiratory Respiratory: Denies chest congestion and Reports cough Gastrointestinal Gastrointestingal: Reports nausea; Denies abdominal pain, constipation, cramping, diarrhea or vomiting Musculoskeletal Musculoskeletal: Denies arthralgias Integumentary/Breasts Skin/Breast: Denies rash Neurologic Neurologic: Denies paresthesias Physical Exam General General appearance: alert and in no apparent distress Head Head exam: atraumatic, normocephalic and normal inspection Eye Eye exam: Present normal appearance, PERRL and EOMI ENT ENT exam: Present mucous membranes moist and normal external ear exam Expanded ENT Exam TM/Canal exam: Bilateral TM: erythema and bulging Nose exam: Absent sinus tenderness Mouth exam: Present normal external inspection; Absent drooling Teeth exam: Present normal inspection Throat exam: Present tonsillar erythema, tonsillomegaly and tonsillar exudate Neck Neck exam: Present normal inspection, full ROM and trachea midline; Absent tenderness, meningismus or lymphadenopathy Chest Chest inspection: Present normal inspection and symmetric chest wall rise; Absent tenderness Respiratory Respiratory exam: Present normal lung sounds bilaterally; Absent respiratory distress, wheezes or stridor Cardiovascular Cardiovascular exam: Present regular rate and normal rhythm; Absent systolic murmur or diastolic murmur Abdominal Exam Abdominal exam: Present soft and normal bowel sounds; Absent distention, tenderness, guarding, rebound or rigidity Extremities Exam Extremities exam: Present normal inspection and normal capillary refill; Absent calf tenderness Back Exam Back exam: Present normal inspection and full ROM; Absent tenderness, CVA tenderness (R) or CVA tenderness (L) Neurological Exam Neurological exam: Present alert, oriented X3 and CN II-XII intact Psychiatric Psychiatric exam: Present normal affect and normal mood Skin Skin exam: Present warm, dry, intact and normal color Medical Decision Making Medical Records Medical records reviewed: No I reviewed the patient's medical records. Devan Inquiry Pt receiving controlled substance: No Lab Data Lab results reviewed: Yes I reviewed the patient's lab results.
[2023-04-14 12:46] LABS: UTC Influenza A Antigen Negative (Negative); UTC Influenza B Antigen Negative (Negative); UTC Strep Screen (Rapid) Negative (Negative)
[2023-04-14 13:03] VITALS: BP 110/72; PULSE 80; RESP 16; TEMP -8.8; TEMP 16; O2SAT 96
== END 2023-04-14 13:03 | disposition home or self-care (01) ==
PROVIDERS: Emergency Provider Nurse Practitioner Family; PCP Nurse Practitioner Family
DX: R07.0 Pain in throat (principal); R50.9 Fever, unspecified; F17.210 Nicotine dependence, cigarettes, uncomplicated; Z20.818 Contact with and (suspected) exposure to other bacterial communicable diseases
CPT/HCPCS: 87635; 87804; 87880; 99212; 99214; G0463

== ENCOUNTER 2023-05-05 12:16 | Emergency (ER) | payer MEDICAID, SELFPAY ==
[2023-05-05 12:30] VITALS: BP 110/65; PULSE 77; RESP 18; TEMP 36.7; O2SAT 98; BMI 20.2
--- NOTE | 2023-05-05 13:10 | ED_ITS ---
Discharge Plan Disposition Patient Disposition: Home, Self-Care Condition: Good Prescriptions Prescriptions: No Action albuterol sulfate [Ventolin HFA] 90 mcg/actuation HFA aerosol inhaler 1 inh inhalation Q6H PRN (Reason: shortness of breath or wheezing) Qty: 8.5 2RF Referrals Follow up/Referrals: Km Navarro APRN [Primary Care Provider] - See instructions Activity Restrictions/Add. Instructions Additional Instructions/Restrictions: *Monitor Temp, Over the counter Motrin or Tylenol as directed/as needed Tylenol every 4 hours and Motrin every 6 hours (as long as your family doctor has told you that you can take it) for fever or pain. and straight to ER if unable to lower temp less than 101.0 after medication given *Warm salt water gargles may help to soothe the throat *Throat Lozenges? *Warm fluids like tea with honey may help to soothe the throat? *Sleep elevated *Humidifier/Vaporizer Follow up with your Family Doctor if swelling returns Follow up IMMEDIATELY for new or worsening symptoms or no Noticeable improvement over the next 48-72 hours. 911 for difficulty breathing or swallowing You were tested for today for Rapid Flu/COVID19 your test result should be back in the next few hours, you may check your results on the [facility] Clinical Impressions Clinical Impression: Viral syndrome Stand Alone Forms Stand Alone Forms: Work/School Release Instructions Patient Instructions: DI for Viral Syndrome, DI for Nasal Congestion Discharge ED Provider: Marcelina Guerrero [facility] [place] Stated complaint: chills Mode of Arrival: Ambulatory Source of Information: Patient Limitations: No Limitations Time Seen by Provider: 05/05/23 13:10 Description of Symptoms (Recalled from Triage Doc. by RN): Pt's symptoms are fever, fatigue, and swelling in face and legs. HEENT Symptoms (Recalled from RN notes): Yes Resp Symptoms (Recalled from RN notes): No Skin Symptoms (Recalled from RN notes): No MS Symptoms (Recalled from RN notes): No Functional Status (Recalled from RN notes): n/a History of Present Illness Provider Complaint: Patient states that she has been having body aches, chills, nasal congestion and cough States that she felt like her face and legs was swollen a few days ago but not now Related Data Previous Rx's Medication Instructions Recorded albuterol sulfate 90 mcg/actuation 1 inh inhalation Q6H PRN shortness 04/01/23 aerosol inhaler (Ventolin HFA) of breath or wheezing #8.5 grams Allergies Allergy/AdvReac Type Severity Reaction Status Date / Time amoxicillin Allergy Intermediate Swelling Verified 05/05/23 12:54 of Lip/Tongue/Throat pecan nut Allergy Unknown Verified 05/05/23 12:54 red dye Allergy Unknown -- Verified 05/05/23 12:54 Penicillins Allergy Verified 05/05/23 12:54 Worker's Comp Is this a Worker's Comp case?: No [facility] Disclaimer: The information contained in this section may have been updated after the patient was seen, as this information can be updated by other users. Medical History Anxiety Ovarian cyst Seizures Surgical History History of delivery x2 Family History Mother Tumor of thyroid Other No significant family history 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 Smoking Status: Current every day smoker tobacco type: cigarettes packs per day: 1 alcohol intake: current substance use type: denies use current occupational status: employed Travel in the last 8 weeks: None household members: family housing: house ROS Obtained: Yes All systems reviewed & no additional complaints except as documented and Yes Systems reviewed as appropriate & no additional complaints except as documented Constitutional Constitutional: Reports system reviewed and no additional complaints, except as documented, Reports as per HPI, Reports body ache and Reports chills ENT Ears, Nose, Mouth, and Throat: Reports system reviewed and no additional complaints, except as documented, Reports as per HPI and Reports nasal congestion Cardiovascular Cardiovascular: Reports system reviewed and no additional complaints, except as documented and Reports as per HPI Respiratory Respiratory: Reports system reviewed and no additional complaints, except as documented and Reports as per HPI Gastrointestinal Gastrointestingal: Reports system reviewed and no additional complaints, except as documented and as per HPI Musculoskeletal Musculoskeletal: Reports system reviewed and no additional complaints, except as documented and Reports as per HPI Physical Exam General General appearance: alert and in no apparent distress ENT ENT exam: Present mucous membranes moist Expanded ENT Exam Nose exam: Absent sinus tenderness Throat exam: Present other (mild pharyngeal erythema noted ) Respiratory Respiratory exam: Present normal lung sounds bilaterally; Absent respiratory distress or wheezes Cardiovascular Cardiovascular exam: Present regular rate, normal rhythm and normal heart sounds Neurological Exam Neurological exam: Present alert, oriented X3 and normal gait Medical Decision Making Devan Inquiry Pt receiving controlled substance: No Devan was queried for this patient: No Vital Signs: 05/05/23 12:30 Temperature 98.0 F Temperature Source Oral Pulse Rate [Right Radial] 77 Respiratory Rate 18 Blood Pressure [Right Arm] 110/65 Blood Pressure Mean [Right Arm] 80 Blood Pressure Source [Right Arm] Automatic Cuff Blood Pressure Position [Right Arm] Sitting 02 Sat by Pulse Oximetry 98 Oxygen Delivery Method Room Air
--- NOTE | 2023-05-05 13:41 | PC.NURSE ---
Sent up full panel to lab
[2023-05-05 13:45] LABS: Adenovirus,PCR Not Detected (NotDetected); Coronavirus 19, PCR Not Detected (NotDetected); Coronavirus 229E Not Detected (NotDetected); Coronavirus NL63 Not Detected (NotDetected); Coronavirus OC43 Not Detected (NotDetected); Coronovirus HKU1,PCR Not Detected (NotDetected); Human Metapneumovirus Not Detected (NotDetected); Influenza A, PCR Not Detected (NotDetected); Influenza AH1, 2009 Not Detected (NotDetected); Influenza AH1, PCR Not Detected (NotDetected); Influenza AH3,PCR Not Detected (NotDetected); Influenza B, PCR Not Detected (NotDetected); Parainfluenza 1, PCR Not Detected (NotDetected); Parainfluenza 2, PCR Not Detected (NotDetected); Parainfluenza 3, PCR Not Detected (NotDetected); Parainfluenza 4, PCR Not Detected (NotDetected); Respiratory Syncytial Virus Not Detected (NotDetected); Rhinovirus/Enterovirus Not Detected (NotDetected)
[2023-05-05 13:46] VITALS: BP 110/65; PULSE 77; RESP 18; TEMP 36.7; O2SAT 98
== END 2023-05-05 13:46 | disposition home or self-care (01) ==
PROVIDERS: Emergency Provider Nurse Practitioner; PCP Nurse Practitioner Family
DX: B34.9 Viral infection, unspecified (principal); R50.9 Fever, unspecified; R53.83 Other fatigue; R09.81 Nasal congestion; R05.9 Cough, unspecified; F41.9 Anxiety disorder, unspecified; F17.210 Nicotine dependence, cigarettes, uncomplicated
CPT/HCPCS: 87632; 87635; 99212; 99213; G0463

== ENCOUNTER 2023-05-14 10:51 | Outpatient (CLI) | payer MEDICAID, SELFPAY ==
[2023-05-14 12:01] LABS: HCG,Quantitative 74 mIU/ml (0-5.42)
== END 2023-05-14 23:59 ==
LOC: LAB 10:51
PROVIDERS: PCP Nurse Practitioner Family; Visit Provider Obstetrics & Gynecology
DX: Z32.00 Encounter for pregnancy test, result unknown (principal)
CPT/HCPCS: 36415; 84144; 84702

== ENCOUNTER 2023-05-28 12:08 | Outpatient (CLI) | payer MEDICAID, SELFPAY ==
[2023-05-28 13:48] LABS: HCG,Quantitative 21594 mIU/ml (0-5.42)
== END 2023-05-28 23:59 ==
LOC: LAB 12:09
PROVIDERS: PCP Nurse Practitioner Family; Visit Provider Obstetrics & Gynecology
DX: N92.6 Irregular menstruation, unspecified (principal)
CPT/HCPCS: 36415; 84702

== ENCOUNTER 2023-06-02 18:30 | Emergency (ER) | payer MEDICAID, SELFPAY ==
[2023-06-02 18:42] VITALS: BP 108/68; PULSE 74; RESP 20; TEMP 37.1; O2SAT 100; BMI 19.8
[2023-06-02 18:56] LABS: Microscopic, Urine URINE MICROSCOPIC (MICROSCOPIC)
[2023-06-02 18:59] LABS: Appearance,Urine SL CLOUDY (Clear); Bilirubin,Urine Negative (Negative); Blood, Urine Negative (Negative); Color,Urine YELLOW (Yellow); Glucose,Urine (UA) Negative (Negative); Ketones,Urine Negative (Negative); Leukocyte Esterase,Urine Negative (Negative); Nitrate,Urine Negative (Negative); Protein,Urine Negative (Negative); Urobilinogen,Urine 0.2 EU/dl (0.2)
[2023-06-02 19:01] LABS: Urine Pregnancy, HCG Qual. Positive (Negative)
--- NOTE | 2023-06-02 19:01 | ED_ITS ---
Discharge Plan Disposition Patient Disposition: Home, Self-Care Prescriptions Prescriptions: New nitrofurantoin monohyd/m-cryst 100 mg capsule 100 mg PO BID 5 Days Qty: 10 0RF Rx Instructions: must administer with a meal/food No Action albuterol sulfate [Ventolin HFA] 90 mcg/actuation HFA aerosol inhaler 1 inh inhalation Q6H PRN (Reason: shortness of breath or wheezing) Qty: 8.5 2RF Referrals Follow up/Referrals: Provider,Referral, MD [Primary Care Provider] - See instructions Activity Restrictions/Add. Instructions Additional Instructions/Restrictions: You have a single living intrauterine consistent with dates please follow-up closely with your STAMPING PRESS OPERATOR doctor return to the emergency department any significant worsening abdominal pain. You may take Tylenol with Benadryl as needed for your pain. Clinical Impressions Clinical Impression: First trimester , Pelvic pain, Asymptomatic bacteriuria during Instructions Patient Instructions: DI for Acute Abdominal Pain Discharge ED Provider: Travis Vieira General Adult HPI General Chief complaint: Abdominal Pain Stated complaint: four weeks preg, cramping Time Seen by Provider: 06/02/23 18:45 Mode of Arrival: Ambulatory Source of Information: Patient Limitations: No Limitations Description of Symptoms (Recalled from ER Triage Doc. by RN): pt to ed c/o lower abd cramping. pt states she is approx 6w . pt reports symptoms starting last night that have persisted today. pt denies vaginal bleeding. pt states to be . History of Present Illness HPI narrative: Patient is a 28-year-old female presenting today with lower abdominal pain. Denies any urinary symptoms any abnormal vaginal discharge or vaginal bleeding. States that she is a at 6 weeks by dates. Pain is mild located in suprapubic region. Does have a history of STDs in the past but denies any current symptoms associated with that. First 2 pregnancies were uneventful and went full-term. She has 2 living children. Has never had a miscarriage in the past. Does not know her blood type but has not had any bleeding. Related Data Previous Rx's Medication Instructions Recorded albuterol sulfate 90 mcg/actuation 1 inh inhalation Q6H PRN shortness 04/01/23 aerosol inhaler (Ventolin HFA) of breath or wheezing #8.5 grams nitrofurantoin 100 mg PO BID 5 days #10 caps 06/02/23 monohydrate/macrocrystals 100 mg capsule Allergies Allergy/AdvReac Type Severity Reaction Status Date / Time amoxicillin Allergy Intermediate Swelling Verified 05/05/23 12:54 of Lip/Tongue/Throat pecan nut Allergy Unknown Verified 05/05/23 12:54 red dye Allergy Unknown -- Verified 05/05/23 12:54 Penicillins Allergy Verified 05/05/23 12:54 [facility] Disclaimer: The information contained in this section may have been updated after the patient was seen, as this information can be updated by other users. Medical History Anxiety Ovarian cyst Seizures Surgical History History of delivery x2 Family History Mother Tumor of thyroid Other No significant family history 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 Smoking Status: Never smoker alcohol intake: current substance use type: denies use current occupational status: employed Travel in the last 8 weeks: None household members: family housing: house ROS Obtained: Yes All systems reviewed & no additional complaints except as documented Physical Exam General General appearance: alert and in no apparent distress Respiratory Respiratory exam: Present normal lung sounds bilaterally Cardiovascular Cardiovascular exam: Present regular rate and normal rhythm Abdominal Exam Abdominal exam: Present soft and tenderness (Very mild tenderness in the suprapubic region otherwise there is no tenderness throughout the rest of the abdomen no rebound or guarding); Absent distention Neurological Exam Neurological exam: Present alert and oriented X3 Medical Decision Making Devan Inquiry Pt receiving controlled substance: No Vital Signs: 06/02/23 18:42 Temperature 98.7 F Temperature Source Oral Pulse Rate [Left Radial] 74 Respiratory Rate 20 Blood Pressure [Right Arm] 108/68 L Blood Pressure Mean [Right Arm] 81 02 Sat by Pulse Oximetry 100 Lab Data Lab results reviewed: Yes I reviewed the patient's lab results. Lab Results 06/02/23 18:39: Urine Color Yellow, Urine Appearance Sl cloudy, Urine pH 8.0, Ur Specific [place] 1.020, Urine Protein Negative, Urine Glucose (UA) Negative, Urine Ketones Negative, Urine Blood Negative, Urine Nitrate Negative, Urine Bilirubin Negative, Urine Urobilinogen 0.2, Ur Leukocyte Esterase Negative, Urine RBC None, Urine WBC None, Ur Squamous Epith Cells 5-10, Amorphous Sediment 3+, Urine Bacteria Trace, Urine HCG, Qual Positive Orders (Tests/Meds): ED MEDICATIONS Discontinued Medications Generic Name Dose Route Start Last Admin Trade Name Lola PRN Reason Stop Dose Admin Acetaminophen 1,000 mg 06/02/23 18:57 06/02/23 19:03 Acetaminophen 500mg Tab PO 06/02/23 18:58 1,000 mg ONCE ONE Administration Diphenhydramine HCl 25 mg 06/02/23 18:57 06/02/23 19:03 Diphenhydramine 25mg Capsule PO 06/02/23 18:58 25 mg ONCE ONE Administration ORDERS Category Date Time Status POCUS Point of Care (ER Only) Stat Exams 06/02/23 18:46 Ordered UA [Urinalysis and Microscopic] Stat Lab 06/02/23 18:39 Completed Urine , HCG Qual. Stat Lab 06/02/23 18:39 Completed Medical Decision Narrative: Very well-appearing 28-year-old G3, P2 at 6 weeks by dates presenting today with lower abdominal discomfort. Differential includes urinary tract infection, ascending infection, abnormal such as with a threatened AB, other surgical pathology such as appendicitis etc. Her abdominal exam is extremely benign I do not suspect surgical pathology. Will obtain a urinalysis I did a limited bedside ultrasound which demonstrated a living intrauterine that is consistent with dates she also had a 2 cm right adnexal simple cyst without any free fluid. I am not concerned about a heterotopic or an ectopic in this particular case with the ruled in IUP. Also not concerned about ovarian torsion with that sized cyst as well as with her benign appearance and exam currently. Will evaluate her urinalysis give Tylenol and Benadryl for symptoms and reassess. She will f/u with applications engineering manager. Reassessment 7:18 PM urinalysis unremarkable aside from some trace bacteria in the setting of will treat this with nitrofurantoin. I discussed this with the patient is possible she has urinary tract infection but not definitively from her urinalysis. Abdominal exam remains benign she will follow-up with her STAMPING PRESS OPERATOR doctor. I reassured her that her appears normal at this point and consistent with her dates. She will return with any significant worsening symptoms. She was discharged in stable condition. Procedures Miscellaneous Procedure Procedure Performed: Limited OB ultrasound Indication: Pelvic pain Identified structures: [-Uterus -Left adnexa -Right adnexa -Pouch of Gagandeep] Findings: Uterus: Definite IUP with gestational sac consistent with dates measuring between 6 and 8 weeks with an obvious yolk sac myometrial mantle 1 cm FHR: Not yet identified Right adnexa: 2 cm simple cyst without any free fluid Left adnexa: Normal Cul de sac: Free fluid absent Impression: -IUP: Present - heart rate: Too early to obtain -Ectopic : Absent -Free fluid: Absent Images were saved to permanent archive The study was technically adequate CPT Transabdominal: 42056-46 This study was performed by me, and I personally interpreted all images/videos. Based on my clinical judgement, these images were adequate and did not necessitate further imaging. Critical Care Critical Care Time Critical Care Time: No
[2023-06-02] MEDS: diphenhydrAMINE 25MG CAPSULE 25 MG PO (19:03)
[2023-06-02] MEDS: ACETAMINOPHEN 500MG TAB 1000 MG PO (19:03)
[2023-06-02 19:11] LABS: Amorphous Sediment,Urine 3+ /lpf; Bacteria,Urine Trace /lpf
[2023-06-02 19:47] VITALS: BP 108/68; PULSE 64; RESP 17; TEMP 36.7; O2SAT 98
== END 2023-06-02 19:49 | disposition home or self-care (01) ==
PROVIDERS: Emergency Provider Student in an Organized Health Care Education/Training Program
DX: O99.891 Other specified diseases and conditions complicating pregnancy (principal); R10.2 Pelvic and perineal pain; R82.71 Bacteriuria; Z3A.01 Less than 8 weeks gestation of pregnancy
CPT/HCPCS: 81001; 81025; 99284

== ENCOUNTER 2023-06-19 09:14 | Emergency (ER) | payer MEDICAID, SELFPAY ==
[2023-06-19 09:16] VITALS: BP 108/72; PULSE 87; RESP 12; TEMP 36.6; O2SAT 100; BMI 20.3
--- NOTE | 2023-06-19 09:33 | ED_ITS ---
Discharge Plan Disposition Patient Disposition: Home, Self-Care Condition: Good Prescriptions Prescriptions: No Action albuterol sulfate [Ventolin HFA] 90 mcg/actuation HFA aerosol inhaler 1 inh inhalation Q6H PRN (Reason: shortness of breath or wheezing) Qty: 8.5 2RF nitrofurantoin monohyd/m-cryst 100 mg capsule 100 mg PO BID 5 Days Qty: 10 0RF Rx Instructions: must administer with a meal/food Referrals Follow up/Referrals: Linda Mruray DO [Staff Physician] - See instructions Km Navarro APRN [Primary Care Provider] - See instructions Activity Restrictions/Add. Instructions Additional Instructions/Restrictions: You were seen in the ED today due to abdominal pain. Labs and ultrasound were reassuring. Please follow-up with your atg architect. Return to the ED if symptoms worsen or if new concerning symptoms arise. Thank you. Clinical Impressions Clinical Impression: Abdominal pain, Intrauterine Instructions Patient Instructions: DI for Acute Abdominal Pain Discharge ED Provider: Conner Amado Adult HPI General Chief complaint: Abdominal Pain Stated complaint: abd pain body aches 8 weeks preg Time Seen by Provider: 06/19/23 09:24 Mode of Arrival: Ambulatory Source of Information: Patient Limitations: No Limitations Description of Symptoms (Recalled from ER Triage Doc. by RN): pt presents to ED with c/o lower abdominal pain. pt reports pain awoke her up from sleep. pt is 8 weeks . pt reports she was unable to go to work this morning. History of Present Illness HPI narrative: Patient is a 28-year-old female G3, P2 with history of seizures who presents due to abdominal pain. Patient reports she is approximately 8 weeks . This morning she began having severe abdominal cramping. She also reports she has had diffuse muscle aches. Denies any fevers. States she was experiencing some dysuria yesterday. She is also complaining of lower back pain, worse on left than right. States she has had nausea and vomiting however this is not new. Denies any diarrhea. States she has had sick exposures, children have had strep throat. Related Data Previous Rx's Medication Instructions Recorded albuterol sulfate 90 mcg/actuation 1 inh inhalation Q6H PRN shortness 04/01/23 aerosol inhaler (Ventolin HFA) of breath or wheezing #8.5 grams nitrofurantoin 100 mg PO BID 5 days #10 caps 06/02/23 monohydrate/macrocrystals 100 mg capsule Allergies Allergy/AdvReac Type Severity Reaction Status Date / Time amoxicillin Allergy Intermediate Swelling Verified 05/05/23 12:54 of Lip/Tongue/Throat pecan nut Allergy Unknown Verified 05/05/23 12:54 red dye Allergy Unknown -- Verified 05/05/23 12:54 Penicillins Allergy Verified 05/05/23 12:54 [facility] Disclaimer: The information contained in this section may have been updated after the patient was seen, as this information can be updated by other users. Medical History Anxiety Ovarian cyst Seizures Surgical History History of delivery x2 Family History Mother Tumor of thyroid Other No significant family history 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 Smoking Status: Former smoker tobacco type: cigarettes packs per day: 1 alcohol intake: current alcohol intake frequency: holidays/special occasions only substance use type: denies use current occupational status: employed Travel in the last 8 weeks: None household members: family housing: house ROS Obtained: Yes All systems reviewed & no additional complaints except as documented Physical Exam General General appearance: alert and in no apparent distress Head Head exam: atraumatic, normocephalic and normal inspection Eye Eye exam: Present normal appearance, PERRL and EOMI ENT ENT exam: Present normal exam, mucous membranes moist, TM's normal bilaterally, normal external ear exam and other (Posterior oropharyngeal erythema.) Neck Neck exam: Present normal inspection, full ROM and trachea midline; Absent meningismus or lymphadenopathy Chest Chest inspection: Present normal inspection and symmetric chest wall rise; Absent tenderness Respiratory Respiratory exam: Present normal lung sounds bilaterally; Absent respiratory distress Cardiovascular Cardiovascular exam: Present regular rate and normal rhythm; Absent JVD Abdominal Exam Abdominal exam: Present soft, tenderness and normal bowel sounds; Absent distention or guarding Comment: Gravid abdomen. Suprapubic and left CVA tenderness to palpation. Extremities Exam Extremities exam: Present normal inspection, full ROM and normal capillary refill; Absent calf tenderness Back Exam Back exam: Present normal inspection; Absent tenderness Neurological Exam Neurological exam: Present alert and oriented X3 Psychiatric Psychiatric exam: Present normal affect and normal mood Skin Skin exam: Present warm, dry, intact and normal color Lymphatic Lymphatic Findings: no adenopathy Medical Decision Making Devan Inquiry Pt receiving controlled substance: No Vital Signs: 06/19/23 09:16 06/19/23 09:43 06/19/23 10:00 Temperature 97.8 F Temperature Source Oral Pulse Rate 67 66 Pulse Rate [Left Radial] 87 Respiratory Rate 12 Blood Pressure 109/76 L 104/64 L Blood Pressure [Right Arm] 108/72 L Blood Pressure Mean [Right Arm] 84 02 Sat by Pulse Oximetry 100 100 100 Oxygen Delivery Method Room Air 06/19/23 10:30 Temperature Temperature Source Pulse Rate 67 Pulse Rate [Left Radial] Respiratory Rate Blood Pressure 106/71 L Blood Pressure [Right Arm] Blood Pressure Mean [Right Arm] 02 Sat by Pulse Oximetry 100 Oxygen Delivery Method Lab Data Lab Results 06/19/23 09:19: Urine Color Yellow, Urine Appearance Clear, Urine pH 6.0, Ur Specific [place] 1.025, Urine Protein Negative, Urine Glucose (UA) Negative, Urine Ketones Negative, Urine Blood Negative, Urine Nitrate Negative, Urine Bilirubin Negative, Urine Urobilinogen 0.2, Ur Leukocyte Esterase Negative 06/19/23 09:25: WBC 9.3, RBC 4.70, Hgb 13.8, Hct 42.3, MCV 90.0, MCH 29.2, MCHC 32.5, RDW 13.3, Plt Count 207, MPV 8.4, Neut % (Auto) 76.5, Lymph % (Auto) 17.9, [place] % (Auto) 4.2, Eos % (Auto) 0.7, Baso % (Auto) 0.6, Neut # (Auto) 7.1, Lymph # (Auto) 1.7, [place] # (Auto) 0.4, Eos # (Auto) 0.1, Baso # (Auto) 0.1, Sodium 138, Potassium 3.9, Chloride 106, Carbon Dioxide 26, Anion Gap 9.9, BUN 6 L, C reatinine 0.50 L, Estimated Creat Clear 159, Estimated GFR 149, Est GFR ( Amer) 180, Glucose 75, Calcium 9.4, Total Bilirubin 0.3, AST 24, ALT 16, Alkaline Phosphatase 45, Total Protein 6.8, Albumin 4.0, Globulin 2.8, Albumin/Globulin Ratio 1.4, Lipase 81, HCG, Quant [id number] H 06/19/23 09:41: Group A Strep Rapid Negative 06/19/23 09:44: SARS-CoV-2 (PCR) Not detected, Influenza A Untype (PCR) Not detected, Influenza Type B (PCR) Not detected 06/19/23 09:25 06/19/23 09:25 Orders (Tests/Meds): ED MEDICATIONS Generic Name Dose Route Start Last Admin Trade Name Freq PRN Reason Stop Dose Admin Sodium Chloride 10 ml 06/19/23 09:29 Sodium Chloride 0.9% 10ml Flush Syringe IV 07/19/23 09:28 NEEDED PRN Maintain IV Site Discontinued Medications Generic Name Dose Route Start Last Admin Trade Name Freq PRN Reason Stop Dose Admin Acetaminophen 500 mg 06/19/23 09:31 06/19/23 09:44 Acetaminophen 500mg Tab PO 06/19/23 09:32 500 mg ONCE ONE Administration Lactated Ringer's 1,000 mls @ 999 mls/hr 06/19/23 09:31 06/19/23 09:40 Lactated Ringer's 1000 Ml Bag IV 06/19/23 10:31 999 mls/hr .Q1H1M ONE Administration ORDERS Category Date Time Status POCUS Point of Care (ER Only) Stat Exams 06/19/23 10:15 Ordered Beta HCG, Quant [HCG,Quantitative] Stat Lab 06/19/23 09:25 Completed CBC w/Auto Diff [Complete Blood Count Auto Diff] Stat Lab 06/19/23 09:25 Completed CMP [Comprehensive Metabolic Panel] Stat Lab 06/19/23 09:25 Completed Lipase Stat Lab 06/19/23 09:25 Completed Rapid PCR Covid and Flu A/B Stat Lab 06/19/23 09:44 Completed Strep Scrn Group A (Rapid) Stat Lab 06/19/23 09:41 Completed Urinalysis and Microscopic Stat Lab 06/19/23 09:19 Results Strep Screen Confirmation Stat Micro 06/19/23 09:41 Received Medical Decision Narrative: In summary, patient is a 28-year-old female G3, P2 approximately 8 weeks gestation, evaluated in the emergency department today due to abdominal pain and bodyaches. On arrival, patient is afebrile, hemodynamically stable. On examination, patient has suprapubic and left CVA tenderness. Differential diagnosis includes but is not limited to complication, cystitis, pyelonephritis, strep throat, viral infection. Patient given 1 L LR bolus, oral Tylenol. Workup initiated including CBC, CMP, lipase, urinalysis, quantitative hCG, strep screen, COVID/flu. Labs independently interpreted by me and significant for hCG 132 K, negative strep, negative COVID/flu, urinalysis with no signs of infection. Bedside transabdominal ultrasound demonstrates intrauterine with appropriate heart rate, approximately 170-180. On reevaluation, patient is resting comfortably in no distress. Given reassuring workup, she is appropriate for discharge at this time. Patient states she will follow-up with her atg architect. Patient counseled on home care, given strict return precautions and agreeable to plan. I considered the utility of obtaining CT imaging, but decided against this because risks outweigh benefits. I considered the utility of treatment with narcotics, but decided against this because risks outweigh benefits. I considered admitting the patient to the hospital for observation, and in shared decision-making with patient, decided on outpatient follow-up. Procedures Limited Ultrasound Indication:: , abdominal pain Views:: transabdominal Findings:: intrauterine , FHR approx 170-180 Interpretation:: Appropriate intrauterine Critical Care Critical Care Time Critical Care Time: No
[2023-06-19 09:35] LABS: Microscopic, Urine URINE MICROSCOPIC (MICROSCOPIC)
[2023-06-19] MEDS: LACTATED RINGERS 1000ML 1,000 ML 999 ML IV (09:40)
[2023-06-19 09:43] VITALS: BP 109/76; PULSE 67; O2SAT 100
[2023-06-19 09:43] LABS: Basophils # 0.1 K/mm3 (0-0.2); Basophils % 0.6 % (0.1-2.0); Eosinophils # 0.1 K/mm3 (0.0-0.4); Eosinophils % 0.7 % (0.1-12.0); Hematocrit 42.3 % (37.0-47.0); Hemoglobin 13.8 g/dL (12.2-16.2); Lymphocytes # 1.7 K/mm3 (0.7-4.5); Lymphocytes % 17.9 % (10-50); Mean Corpuscular HGB Conc 32.5 g/dL (31.8-35.4); Mean Corpuscular Hemoglobin 29.2 pg (27.0-31.2); Mean Platelet Volume 8.4 fl (7.4-10.4); Monocytes # 0.4 K/mm3 (0.1-1.0); Monocytes % 4.2 % (1.7-9.3); Neutrophils # 7.1 K/mm3 (1.8-7.8); Neutrophils % 76.5 % (37.0-80.0); Platelet Count 207 K/mm3 (142-424); Red Cell Distribution Width 13.3 % (11.5-17.5); White Blood Count 9.3 K/mm3 (4.8-10.8)
[2023-06-19 09:43] LABS: Appearance,Urine CLEAR (Clear); Bilirubin,Urine Negative (Negative); Blood, Urine Negative (Negative); Color,Urine YELLOW (Yellow); Glucose,Urine (UA) Negative (Negative); Ketones,Urine Negative (Negative); Leukocyte Esterase,Urine Negative (Negative); Nitrate,Urine Negative (Negative); Protein,Urine Negative (Negative); Specific Gravity, Urine 1.025 (1.005-1.030); Urobilinogen,Urine 0.2 EU/dl (0.2)
[2023-06-19] MEDS: ACETAMINOPHEN 500MG TAB 500 MG PO (09:44)
[2023-06-19 09:45] LABS: Coronavirus 19, PCR Not Detected (NotDetected); Influenza A, PCR Not Detected (NotDetected); Influenza B, PCR Not Detected (NotDetected)
[2023-06-19 09:45] LABS: Alanine Aminotransferase 16 U/L (12-78); Albumin/Globulin Ratio 1.4 (1.1-1.8); Alkaline Phosphatase 45 U/L (38-126); Anion Gap 9.9 mEq/L (5-15); Aspartate Amino Transferase 24 U/L (14-36); Bilirubin,Total 0.3 mg/dl (0.2-1.3); Blood Urea Nitrogen 6 mg/dl (7-17); Calcium 9.4 mg/dl (8.4-10.2); Carbon Dioxide 26 mmol/L (22.0-30.0); Chloride 106 mmol/L (98-107); Creatinine Clearance Estimated 159 mL/min (50-200); Estimated Glomerular Filt Rate 149 ml/min (>60); GFR (African American) 180 ML/MIN (>60); Globulin 2.8 g/dL (1.3-3.2); Glucose 75 mg/dl (74-100); Lipase 81 U/L (23-300); Potassium 3.9 mmoL/L (3.5-5.1); Sodium 138 mmol/L (136-145); Total Protein,Serum 6.8 g/dl (6.3-8.2)
[2023-06-19 09:58] LABS: Strep Scrn Group A (Rapid) Negative (Negative)
[2023-06-19 10:00] VITALS: BP 104/64; PULSE 66; O2SAT 100
[2023-06-19 10:28] LABS: HCG,Quantitative 132120 mIU/ml (0-5.42)
[2023-06-19 10:30] VITALS: BP 106/71; PULSE 67; O2SAT 100
[2023-06-19 10:52] VITALS: BP 106/71; PULSE 67; RESP 16; TEMP 36.7
[2023-06-19 11:05] LABS: Bacteria,Urine Trace /lpf
== END 2023-06-19 10:53 | disposition home or self-care (01) ==
PROVIDERS: Emergency Provider Student in an Organized Health Care Education/Training Program; PCP Nurse Practitioner Family
DX: O26.891 Other specified pregnancy related conditions, first trimester (principal); R10.30 Lower abdominal pain, unspecified; M54.50 Low back pain, unspecified; Z3A.08 8 weeks gestation of pregnancy; Z87.891 Personal history of nicotine dependence
CPT/HCPCS: 80053; 81001; 83690; 84702; 85025; 87430; 87636; 96360; 99284

== ENCOUNTER 2023-07-27 17:51 | Emergency (ER) | payer MEDICAID, SELFPAY ==
[2023-07-27 17:52] VITALS: BP 106/71; PULSE 98; RESP 16; TEMP 36.6; O2SAT 98; BMI 20.3
--- NOTE | 2023-07-27 18:01 | ED_ITS ---
Discharge Plan Disposition Patient Disposition: Left Against Medical Advice Prescriptions Prescriptions: No Action albuterol sulfate [Ventolin HFA] 90 mcg/actuation HFA aerosol inhaler 1 inh inhalation Q6H PRN (Reason: shortness of breath or wheezing) Qty: 8.5 2RF nitrofurantoin monohyd/m-cryst 100 mg capsule 100 mg PO BID 5 Days Qty: 10 0RF Rx Instructions: must administer with a meal/food Referrals Follow up/Referrals: Km Navarro APRN [Primary Care Provider] - See instructions Clinical Impressions Clinical Impression: Left against medical advice Discharge ED Provider: Wili Dorantes General Adult HPI <DAKOTA Cruz - Last Filed: 07/27/23 18:30> General Chief complaint: Upper Respiratory Infection Stated complaint: abd pain, cough, SOA Time Seen by Provider: 07/27/23 18:00 History of Present Illness HPI narrative: Patient presents for evaluation of 1 week of nonspecific symptoms including congestion malaise weakness but denies chest pain shortness of breath fever chills mopped assist hematochezia melena nausea vomiting diarrhea. Patient is 13 weeks . Related Data Previous Rx's Medication Instructions Recorded albuterol sulfate 90 mcg/actuation 1 inh inhalation Q6H PRN shortness 04/01/23 aerosol inhaler (Ventolin HFA) of breath or wheezing #8.5 grams nitrofurantoin 100 mg PO BID 5 days #10 caps 06/02/23 monohydrate/macrocrystals 100 mg capsule Allergies Allergy/AdvReac Type Severity Reaction Status Date / Time amoxicillin Allergy Intermediate Swelling Verified 05/05/23 12:54 of Lip/Tongue/Throat pecan nut Allergy Unknown Verified 05/05/23 12:54 red dye Allergy Unknown -- Verified 05/05/23 12:54 Penicillins Allergy Verified 05/05/23 12:54 PFSH <DAKOTA Cruz - Last Filed: 07/27/23 18:30> PFS Disclaimer: The information contained in this section may have been updated after the patient was seen, as this information can be updated by other users. Medical History Anxiety Ovarian cyst Seizures Surgical History History of delivery x2 Family History Mother Tumor of thyroid Other No significant family history 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 Smoking Status: Current every day smoker tobacco type: cigarettes packs per day: 1 alcohol intake: current alcohol intake frequency: holidays/special occasions only substance use type: denies use current occupational status: employed Travel in the last 8 weeks: None household members: family housing: house <DAKOTA Cruz - Last Filed: 07/27/23 18:30> ROS Obtained: Yes Systems reviewed as appropriate & no additional complaints except as documented Physical Exam <DAKOTA Cruz - Last Filed: 07/27/23 18:30> General General appearance: alert and in no apparent distress Head Head exam: atraumatic and normal inspection Eye Eye exam: Present normal appearance ENT ENT exam: Present normal exam, normal oropharynx and mucous membranes moist Neck Neck exam: Present normal inspection, full ROM and lymphadenopathy Chest Chest inspection: Present normal inspection and symmetric chest wall rise Respiratory Respiratory exam: Present normal lung sounds bilaterally Cardiovascular Cardiovascular exam: Present regular rate and normal rhythm Abdominal Exam Abdominal exam: Present soft (Gravid); Absent tenderness Back Exam Back exam: Present normal inspection Neurological Exam Neurological exam: Present alert and oriented X3 Psychiatric Psychiatric exam: Present normal affect and normal mood Skin Skin exam: Present warm, dry and normal color Medical Decision Making <DAKOTA Cruz - Last Filed: 07/27/23 18:30> Medical Records Medical records reviewed: Yes I reviewed the patient's medical records. Devan Inquiry Pt receiving controlled substance: No Vital Signs: 07/27/23 17:52 07/27/23 18:29 Temperature 97.8 F 97.8 F Temperature Source Oral Pulse Rate 98 H Pulse Rate [Left Radial] 98 H Respiratory Rate 16 16 Blood Pressure 106/71 L Blood Pressure [Right Arm] 106/71 L Blood Pressure Mean [Right Arm] 82 Blood Pressure Source [Right Arm] Automatic Cuff Blood Pressure Position [Right Arm] Sitting 02 Sat by Pulse Oximetry 98 Oxygen Delivery Method Room Air Room Air Lab Data Lab results reviewed: Yes I reviewed the patient's lab results. Orders (Tests/Meds): ED MEDICATIONS Discontinued Medications Generic Name Dose Route Start Last Admin Trade Name Freq PRN Reason Stop Dose Admin Acetaminophen 1,000 mg 07/27/23 18:21 Acetaminophen 500mg Tab PO 07/27/23 18:22 ONCE ONE Ondansetron HCl 4 mg 07/27/23 18:21 Ondansetron 4mg/2ml Vial IV 07/27/23 18:22 ONCE ONE ORDERS Category Date Time Status CBC w/Auto Diff [Complete Blood Count Auto Diff] Stat Lab 07/27/23 18:21 Ordered CMP [Comprehensive Metabolic Panel] Stat Lab 07/27/23 18:21 Ordered Medical Decision Narrative: In summary patient is a 28-year-old female who presents to the emergency department for evaluation of congestion malaise and weakness. Patient is hemodynamically stable upon arrival, afebrile. Physical exam is unremarkable and nonfocal including clear breath sounds normal oropharynx normal heart rate. Differential diagnosis includes viral or bacterial upper respiratory tract infection, urinary tract infection, iron deficiency anemia etc. Initial workup will be conducted with hematologic labs urinalysis chest x-ray. Initial interventions include Tylenol Zofran. Initial workup was ordered after I saw and examined the patient. Patient however left AMA prior to workup being completed <Wili Dorantes MD - Last Filed: 07/27/23 19:37> Vital Signs: 07/27/23 17:52 07/27/23 18:29 Temperature 97.8 F 97.8 F Temperature Source Oral Pulse Rate 98 H Pulse Rate [Left Radial] 98 H Respiratory Rate 16 16 Blood Pressure 106/71 L Blood Pressure [Right Arm] 106/71 L Blood Pressure Mean [Right Arm] 82 Blood Pressure Source [Right Arm] Automatic Cuff Blood Pressure Position [Right Arm] Sitting 02 Sat by Pulse Oximetry 98 Oxygen Delivery Method Room Air Room Air Orders (Tests/Meds): ED MEDICATIONS Discontinued Medications Generic Name Dose Route Start Last Admin Trade Name Freq PRN Reason Stop Dose Admin Acetaminophen 1,000 mg 07/27/23 18:21 Acetaminophen 500mg Tab PO 07/27/23 18:22 ONCE ONE Ondansetron HCl 4 mg 07/27/23 18:21 Ondansetron 4mg/2ml Vial IV 07/27/23 18:22 ONCE ONE ORDERS Category Date Time Status CBC w/Auto Diff [Complete Blood Count Auto Diff] Stat Lab 07/27/23 18:21 Ordered CMP [Comprehensive Metabolic Panel] Stat Lab 07/27/23 18:21 Ordered Medical Decision Narrative: In summary patient is a 28-year-old female who presents to the emergency department for evaluation of congestion malaise and weakness. Patient is hemodynamically stable upon arrival, afebrile. Physical exam is unremarkable and nonfocal including clear breath sounds normal oropharynx normal heart rate. Differential diagnosis includes viral or bacterial upper respiratory tract infection, urinary tract infection, iron deficiency anemia etc. Initial workup will be conducted with hematologic labs urinalysis chest x-ray. Initial interventions include Tylenol Zofran. Initial workup was ordered after I saw and examined the patient. Patient however left AMA prior to workup being completed I was consulted by the RAY, and we discussed the complexity of the problems being addressed. I approved the treatment and management plan for this patient?s care in the Emergency Department, thus performing a substantive portion of the medical decision making. Wili Dorantes MD Critical Care <DAKOTA Cruz - Last Filed: 07/27/23 18:30> Critical Care Time Critical Care Time: No
--- NOTE | 2023-07-27 18:25 | PC.NURSE ---
Pt has decided to go to [facility] after speaking to her [employer] . AMA paper signed , pt understands the risk and knows for any further problems come back to ER
[2023-07-27 18:29] VITALS: BP 106/71; PULSE 98; RESP 16; TEMP 36.6; O2SAT 98
== END 2023-07-27 18:32 | disposition left against medical advice (07) ==
PROVIDERS: Emergency Provider Emergency Medicine; PCP Nurse Practitioner Family
DX: O26.892 Other specified pregnancy related conditions, second trimester (principal); Z3A.13 13 weeks gestation of pregnancy; R09.81 Nasal congestion; R53.1 Weakness
CPT/HCPCS: 99283

== ENCOUNTER 2023-08-01 11:44 | Emergency (ER) | payer MEDICAID, SELFPAY ==
[2023-08-01 11:46] VITALS: BP 113/72; PULSE 89; RESP 18; TEMP 36.5; O2SAT 99; BMI 20.9
--- NOTE | 2023-08-01 12:24 | ECG_ITS ---
APPROVED REPORT Exam: Resting ECG HR:75 bpm ECG Measurements Heart Rate 75 AXES WV 139 P 56 QRSd 95 QRS 55 QT 388 T 49 QTc 417 Conclusion SINUS RHYTHM NORMAL ECG UNCONFIRMED REPORT Electronically signed by : CAREN ABREU, 08/01/2023 15:44:14
--- NOTE | 2023-08-01 12:26 | [facility].EDGENADL ---
Discharge Plan Disposition Patient Disposition: Home, Self-Care Condition: Good Prescriptions Prescriptions: New ondansetron 4 mg tablet,disintegrating 4 mg PO Q6H PRN (Reason: nausea and vomiting) 4 Days Qty: 16 0RF nitrofurantoin monohyd/m-cryst [Macrobid] 100 mg capsule 100 mg PO Q12H 7 Days Qty: 14 0RF Rx Instructions: must administer with a meal/food No Action albuterol sulfate [Ventolin HFA] 90 mcg/actuation HFA aerosol inhaler 1 inh inhalation Q6H PRN (Reason: shortness of breath or wheezing) Qty: 8.5 2RF nitrofurantoin monohyd/m-cryst 100 mg capsule 100 mg PO BID 5 Days Qty: 10 0RF Rx Instructions: must administer with a meal/food Referrals Follow up/Referrals: Km Navarro APRN [Primary Care Provider] - See instructions Activity Restrictions/Add. Instructions Additional Instructions/Restrictions: You have been evaluated in the ED for your complaints. You may follow-up with your PCP in the next 3 to 5 days. Please return to ED for any new or worsening symptoms. I have written for nitrofurantoin to treat your urinary tract infection. Please take this as prescribed. I have also written for Zofran to assist with any nausea that you may have. Clinical Impressions Clinical Impression: Upper respiratory infection, viral, Chest pain, Shortness of breath Discharge ED Provider: Kaz Johnson Adult HPI General Chief complaint: Upper Respiratory Infection Stated complaint: weak heart rate, weakness 14 weeks preg Time Seen by Provider: 08/01/23 11:50 Mode of Arrival: Ambulatory Source of Information: Patient Limitations: No Limitations Description of Symptoms (Recalled from ER Triage Doc. by RN): 14 weeks . generalized malaise, tired. feels like her heart is racing. History of Present Illness HPI narrative: 28-year-old female with past medical history significant for seizure disorder, anxiety, ovarian cyst, reportedly 14 weeks gestation, presents today for evaluation concerning congestion, chest discomfort, palpitations and nausea over the past few days. She also reports myalgias and general fatigue. She denies any episodes of emesis, dysuria or hematuria. She does report mild abdominal discomfort. Has not had any diarrhea or constipation. No further complaints at this time. Related Data Previous Rx's Medication Instructions Recorded albuterol sulfate 90 mcg/actuation 1 inh inhalation Q6H PRN shortness 04/01/23 aerosol inhaler (Ventolin HFA) of breath or wheezing #8.5 grams nitrofurantoin 100 mg PO BID 5 days #10 caps 06/02/23 monohydrate/macrocrystals 100 mg capsule nitrofurantoin 100 mg PO Q12H 7 days #14 caps 08/01/23 monohydrate/macrocrystals 100 mg capsule (Macrobid) ondansetron 4 mg disintegrating 4 mg PO Q6H PRN nausea and 08/01/23 tablet vomiting 4 days #16 tabs Allergies Allergy/AdvReac Type Severity Reaction Status Date / Time amoxicillin Allergy Intermediate Swelling Verified 05/05/23 12:54 of Lip/Tongue/Throat pecan nut Allergy Unknown Verified 05/05/23 12:54 red dye Allergy Unknown -- Verified 05/05/23 12:54 Penicillins Allergy Verified 05/05/23 12:54 PFSH PFSH Disclaimer: The information contained in this section may have been updated after the patient was seen, as this information can be updated by other users. Medical History Anxiety Ovarian cyst Seizures Surgical History History of delivery x2 Family History Mother Tumor of thyroid Other No significant family history 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 Smoking Status: Never smoker alcohol intake: current alcohol intake frequency: holidays/special occasions only substance use type: denies use current occupational status: employed Travel in the last 8 weeks: None household members: family housing: house ROS Obtained: Yes All systems reviewed & no additional complaints except as documented Physical Exam General General appearance: alert and in no apparent distress Head Head exam: atraumatic and normocephalic Eye Eye exam: Present normal appearance, PERRL and EOMI ENT ENT exam: Present normal oropharynx and mucous membranes moist Neck Neck exam: Present full ROM; Absent meningismus Respiratory Respiratory exam: Absent respiratory distress, wheezes, stridor or accessory muscle use Cardiovascular Cardiovascular exam: Present normal rhythm Abdominal Exam Abdominal exam: Present soft and other (Gravid abdomen. Mild generalized tenderness to palpation); Absent distention, tenderness, guarding, rebound or rigidity Neurological Exam Neurological exam: Present alert, oriented X3 and CN II-XII intact; Absent motor sensory deficit Psychiatric Psychiatric exam: Present normal affect and normal mood Skin Skin exam: Present warm and dry Medical Decision Making Medical Records Medical records reviewed: Yes I reviewed the patient's medical records. Devan Inquiry Pt receiving controlled substance: No Devan was queried for this patient: No Vital Signs: 08/01/23 11:46 08/01/23 12:57 08/01/23 13:27 Temperature 97.7 F Temperature Source Oral Pulse Rate 80 71 Pulse Rate [Right] 89 Respiratory Rate 18 Blood Pressure 116/47 L 101/66 L Blood Pressure [Right Arm] 113/72 Blood Pressure Mean [Right Arm] 85 02 Sat by Pulse Oximetry 99 98 98 Oxygen Delivery Method Room Air Room Air Room Air 08/01/23 13:28 Temperature Temperature Source Pulse Rate 69 Pulse Rate [Right] Respiratory Rate Blood Pressure 111/73 Blood Pressure [Right Arm] Blood Pressure Mean [Right Arm] 02 Sat by Pulse Oximetry 95 Oxygen Delivery Method Room Air Lab Data Lab Results 08/01/23 12:23: WBC 11.1 H, RBC 4.56, Hgb 13.3, Hct 40.1, MCV 87.8, MCH 29.1, MCHC 33.2, RDW 13.3, Plt Count 225, MPV 8.0, Neut % (Auto) 77.5, Lymph % (Auto) 17.5, [place] % (Auto) 3.7, Eos % (Auto) 0.9, Baso % (Auto) 0.4, Neut # (Auto) 8.6 H, Lymph # (Auto) 1.9, [place] # (Auto) 0.4, Eos # (Auto) 0.1, Baso # (Auto) 0.0, D-Dimer 0.40, Sodium 137, Potassium 3.3 L, Chloride 104, Carbon Dioxide 25, Anion Gap 11.3, BUN 4 L, Creatinine 0.50 L, Estimated Creat Clear 159, Estimated GFR 149, Est GFR ( Amer) 180, Glucose 105 H, Lactate 1.0, Calcium 9.1, Total Bilirubin 0.3, AST 26, ALT 16, Alkaline Phosphatase 53, Troponin I < 0.01, Total Protein 6.9, Albumin 3.9, Globulin 3.0, Albumin/Globulin Ratio 1.3, Lipase 83, HCG, Quant 21585 H, SARS-CoV-2 (PCR) Not detected, Influenza A Untype (PCR) Not detected, Influenza Type B (PCR) Not detected 08/01/23 12:45: Urine Color Yellow, Urine Appearance Sl cloudy, Urine pH 7.5, Ur Specific Mittie 1.020, Urine Protein Negative, Urine Glucose (UA) Negative, Urine Ketones Negative, Urine Blood Negative, Urine Nitrate Negative, Urine Bilirubin Negative, Urine Urobilinogen 0.2, Ur Leukocyte Esterase 2+ A, Urine RBC None, Urine WBC 5-10, Ur Squamous Epith Cells 20-50, Urine Bacteria 1+ 08/01/23 14:20: Troponin I < 0.01 08/01/23 12:23 08/01/23 12:23 Orders (Tests/Meds): ED MEDICATIONS Discontinued Medications Generic Name Dose Route Start Last Admin Trade Name Freq PRN Reason Stop Dose Admin Acetaminophen 1,000 mg 08/01/23 12:14 08/01/23 12:47 Acetaminophen 500mg Tab PO 08/01/23 12:15 1,000 mg ONCE ONE Administration Potassium Chloride 40 meq 08/01/23 13:57 08/01/23 14:04 Potassium Chloride 20meq Tab PO 08/01/23 13:58 40 meq ONCE ONE Administration ORDERS Category Date Time Status POCUS Point of Care (ER Only) Stat Exams 08/01/23 14:30 Ordered Beta HCG, Quant [HCG,Quantitative] Stat Lab 08/01/23 12:23 Completed CBC w/Auto Diff [Complete Blood Count Auto Diff] Stat Lab 08/01/23 12:23 Completed CMP [Comprehensive Metabolic Panel] Stat Lab 08/01/23 12:23 Completed D-Dimer Stat Lab 08/01/23 12:23 Completed Lactic Acid Stat Lab 08/01/23 12:23 Completed Lipase Stat Lab 08/01/23 12:23 Completed Rapid PCR Covid and Flu A/B Stat Lab 08/01/23 12:23 Completed Trop I [Troponin I] Stat Lab 08/01/23 12:23 Completed Troponin I Q3H Lab 08/01/23 14:20 Completed Troponin I Q3H Lab 08/01/23 18:15 Ordered UA [Urinalysis and Microscopic] Stat Lab 08/01/23 12:45 Completed Urine Culture Stat Micro 08/01/23 12:45 Received ECG Data Tracing #1: I reviewed this ECG and interpreted as documented below: EKG personally interpreted by me. Normal sinus rhythm with a rate of 75 bpm. No ischemic changes Medical Decision Narrative: 28-year-old female with past medical history significant for seizure disorder, anxiety, ovarian cyst, reportedly 14 weeks gestation, presents today for evaluation concerning congestion, chest discomfort, palpitations and nausea over the past few days. She also reports myalgias and general fatigue. She denies any episodes of emesis, dysuria or hematuria. She does report mild abdominal discomfort. On assessment she is hemodynamically stable and in no acute distress. Afebrile. She was not tachycardic. Chest clear to station bilaterally. Gravid abdomen with mild generalized tenderness to palpation. Other exam findings unremarkable differential diagnoses include not limited to COVID, influenza, ACS, PE, complication, gastroenteritis, among others. EKG was personally interpreted by me and was without any ischemic changes. Chest x-ray was offered however patient declined as she is . She understands risk versus benefits. Her labs today have been remarkable for a WBC of 11.1. Potassium of 3.3. I have ordered for oral replacement. Initial troponin less than 0.01. Second opponent 0.01. D-dimer negative at 0.40. Beta quant of 45,780. Urinalysis with 2+ leukocyte esterase, 5-10 WBCs. Negative swabs. heart rate of 152 on bedside ultrasound. On reassessment patient federico medically stable and in no acute distress. Symptoms improved. Discussed with patient ED work-up and results and current plan to discharge with prescriptions for Macrobid and Zofran.. Provided with return to ED precautions and instructions concerning PCP follow-up. Patient verbalized understanding and agreement with plan. Subsequently discharged hemodynamically stable and in no acute distress. Procedures Limited Ultrasound Indication:: , assess heart tones Findings:: Intrauterine with heart rate of 152 bpm Interpretation:: Intrauterine with heart rate of 102 bpm Critical Care Critical Care Time Critical Care Time: No
[2023-08-01 12:32] LABS: Basophils % 0.4 % (0.1-2.0); Eosinophils # 0.1 K/mm3 (0.0-0.4); Eosinophils % 0.9 % (0.1-12.0); Hematocrit 40.1 % (37.0-47.0); Hemoglobin 13.3 g/dL (12.2-16.2); Lymphocytes # 1.9 K/mm3 (0.7-4.5); Lymphocytes % 17.5 % (10-50); Mean Corpuscular HGB Conc 33.2 g/dL (31.8-35.4); Mean Corpuscular Hemoglobin 29.1 pg (27.0-31.2); Mean Corpuscular Volume 87.8 fl (81-99); Monocytes # 0.4 K/mm3 (0.1-1.0); Monocytes % 3.7 % (1.7-9.3); Neutrophils # 8.6 K/mm3 (1.8-7.8); Neutrophils % 77.5 % (37.0-80.0); Platelet Count 225 K/mm3 (142-424); Red Blood Count 4.56 M/mm3 (4.20-5.40); Red Cell Distribution Width 13.3 % (11.5-17.5); White Blood Count 11.1 K/mm3 (4.8-10.8)
[2023-08-01 12:33] LABS: Coronavirus 19, PCR Not Detected (NotDetected); Influenza A, PCR Not Detected (NotDetected); Influenza B, PCR Not Detected (NotDetected)
[2023-08-01 12:46] LABS: Alanine Aminotransferase 16 U/L (12-78); Albumin Level 3.9 g/dl (3.5-5.0); Albumin/Globulin Ratio 1.3 (1.1-1.8); Alkaline Phosphatase 53 U/L (38-126); Anion Gap 11.3 mEq/L (5-15); Aspartate Amino Transferase 26 U/L (14-36); Bilirubin,Total 0.3 mg/dl (0.2-1.3); Blood Urea Nitrogen 4 mg/dl (7-17); Calcium 9.1 mg/dl (8.4-10.2); Carbon Dioxide 25 mmol/L (22.0-30.0); Chloride 104 mmol/L (98-107); Creatinine Clearance Estimated 159 mL/min (50-200); Estimated Glomerular Filt Rate 149 ml/min (>60); GFR (African American) 180 ML/MIN (>60); Glucose 105 mg/dl (74-100); Lipase 83 U/L (23-300); Potassium 3.3 mmoL/L (3.5-5.1); Sodium 137 mmol/L (136-145); Total Protein,Serum 6.9 g/dl (6.3-8.2)
[2023-08-01] MEDS: ACETAMINOPHEN 500MG TAB 1000 MG PO (12:47)
[2023-08-01 12:49] LABS: Microscopic, Urine URINE MICROSCOPIC (MICROSCOPIC)
[2023-08-01 12:50] LABS: Appearance,Urine SL CLOUDY (Clear); Bilirubin,Urine Negative (Negative); Blood, Urine Negative (Negative); Color,Urine YELLOW (Yellow); Glucose,Urine (UA) Negative (Negative); Ketones,Urine Negative (Negative); Leukocyte Esterase,Urine 2+ (Negative); Nitrate,Urine Negative (Negative); PH,Urine 7.5 (5.0-8.5); Protein,Urine Negative (Negative); Urobilinogen,Urine 0.2 EU/dl (0.2)
[2023-08-01 12:57] VITALS: BP 116/47; PULSE 80; O2SAT 98
[2023-08-01 13:07] LABS: Troponin I < 0.01 ng/ml (0.00-0.034)
[2023-08-01 13:11] LABS: Bacteria,Urine 1+ /lpf; Squamous Epithelial Cell,Urine 20-50 #/hpf (0-5)
[2023-08-01 13:27] VITALS: BP 101/66; PULSE 71; O2SAT 98
[2023-08-01 13:28] VITALS: BP 111/73; PULSE 69; O2SAT 95
[2023-08-01 13:52] LABS: HCG,Quantitative 45780 mIU/ml (0-5.42)
[2023-08-01] MEDS: POTASSIUM CHLORIDE 20MEQ TAB 40 MEQ PO (14:04)
[2023-08-01 14:51] LABS: Troponin I < 0.01 ng/ml (0.00-0.034)
[2023-08-01 15:10] VITALS: BP 114/50; PULSE 74; RESP 18; TEMP 36.4; O2SAT 99
--- NOTE | 2023-08-01 15:58 | PC.NURSE ---
pt called to have medications transferred to [facility], completed at this time.
== END 2023-08-01 15:11 | disposition home or self-care (01) ==
PROVIDERS: Emergency Provider Emergency Medicine; PCP Nurse Practitioner Family
DX: O23.42 Unspecified infection of urinary tract in pregnancy, second trimester (principal); B96.89 Other specified bacterial agents as the cause of diseases classified elsewhere; R07.9 Chest pain, unspecified; R06.02 Shortness of breath; R53.83 Other fatigue; Z3A.14 14 weeks gestation of pregnancy
CPT/HCPCS: 80053; 81001; 83605; 83690; 84484; 84702; 85025; 85378; 87086; 87636; 93005; 99285

== ENCOUNTER 2023-08-11 19:03 | Emergency (ER) | payer MEDICAID, SELFPAY ==
[2023-08-11 19:15] VITALS: BP 113/64; PULSE 77; RESP 20; TEMP 36.7; O2SAT 99; BMI 20.3
--- NOTE | 2023-08-11 19:30 | EXP.UTC ---
Discharge Plan Disposition Patient Disposition: Home, Self-Care Condition: Good Prescriptions Prescriptions: New fluticasone propionate [24 Hour Allergy Relief] 50 mcg/actuation spray,suspension 2 spray intranasal DAILY Qty: 16 0RF Rx Instructions: administer into each nostril Referrals Follow up/Referrals: Km Navarro APRN [Primary Care Provider] - See instructions Activity Restrictions/Add. Instructions Additional Instructions/Restrictions: May use Delsym or Robitussin for cough, Albuterol inhaler as needed, and Flonase during . If symptoms persist or worsen, follow up with PCP/OB Clinical Impressions Clinical Impression: Upper respiratory infection, viral Instructions Patient Instructions: DI for Viral Upper Respiratory Infection -- Adult Discharge ED Provider: Moni García [facility] General Stated complaint: SOA, Cough, diff swallowing Mode of Arrival: Ambulatory Source of Information: Patient Limitations: No Limitations Time Seen by Provider: 08/11/23 19:30 Description of Symptoms (Recalled from Triage Doc. by RN): PATIENT C/O SORE THROAT, SOA, AND COUGH X 2 DAYS HEENT Symptoms (Recalled from RN notes): Yes Resp Symptoms (Recalled from RN notes): Yes Skin Symptoms (Recalled from RN notes): No MS Symptoms (Recalled from RN notes): No Functional Status (Recalled from RN notes): WNL History of Present Illness Provider Complaint: Pt reports that she is 18 weeks and concerned as she has a sore throat, cough, and runny nose. She reports feeling short of air at times but has not used her inhaler due to being unsure if safe during . Related Data Previous Rx's Medication Instructions Recorded fluticasone propionate 50 2 spray intranasal DAILY #16 grams 08/11/23 mcg/actuation nasal spray,suspension (24 Hour Allergy Relief) Allergies Allergy/AdvReac Type Severity Reaction Status Date / Time amoxicillin Allergy Intermediate Swelling Verified 05/05/23 12:54 of Lip/Tongue/Throat pecan nut Allergy Unknown Verified 05/05/23 12:54 red dye Allergy Unknown -- Verified 05/05/23 12:54 Penicillins Allergy Verified 05/05/23 12:54 Worker's Comp Is this a Worker's Comp case?: No [facility] Disclaimer: The information contained in this section may have been updated after the patient was seen, as this information can be updated by other users. Medical History Anxiety Ovarian cyst Seizures Surgical History History of delivery x2 Family History Mother Tumor of thyroid Other No significant family history 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 Smoking Status: Never smoker alcohol intake: current alcohol intake frequency: holidays/special occasions only substance use type: denies use current occupational status: employed Travel in the last 8 weeks: None household members: family housing: house ROS Obtained: Yes All systems reviewed & no additional complaints except as documented Constitutional Constitutional: Reports system reviewed and no additional complaints, except as documented and Reports malaise Eyes Eyes: Reports system reviewed and no additional complaints, except as documented ENT Ears, Nose, Mouth, and Throat: Reports system reviewed and no additional complaints, except as documented, Reports nasal congestion, Reports nasal discharge, Reports post nasal drip, Reports sinus pressure and Reports sore throat Cardiovascular Cardiovascular: Reports system reviewed and no additional complaints, except as documented Respiratory Respiratory: Reports system reviewed and no additional complaints, except as documented, Reports shortness of breath and Reports cough Gastrointestinal Gastrointestingal: Reports system reviewed and no additional complaints, except as documented Genitourinary Female Genitourinary: Reports system reviewed and no additional complaints, except as documented Musculoskeletal Musculoskeletal: Reports system reviewed and no additional complaints, except as documented Integumentary/Breasts Skin/Breast: Reports system reviewed and no additional complaints, except as documented Neurologic Neurologic: Reports system reviewed and no additional complaints, except as documented Endocrine Endocrine: Reports system reviewed and no additional complaints, except as documented Hematologic/Lymphatic Henatologic/Lymphatic: Reports system reviewed and no additional complaints, except as documented Allergic/Immunologic Allergic/Immunologic: Reports system reviewed and no additional complaints, except as documented Physical Exam General General appearance: alert and in no apparent distress Head Head exam: atraumatic and normocephalic Eye Eye exam: Present normal appearance ENT ENT exam: Present mucous membranes moist Expanded ENT Exam External ear exam: Present normal external inspection Nose exam: Absent sinus tenderness Nasal speculum exam: Bilateral: other (clear drainage; edematous mucosa) Mouth exam: Present normal external inspection Teeth exam: Present normal inspection Throat exam: Present tonsillar erythema Neck Neck exam: Present normal inspection; Absent lymphadenopathy Chest Chest inspection: Present normal inspection and symmetric chest wall rise Respiratory Respiratory exam: Present normal lung sounds bilaterally Cardiovascular Cardiovascular exam: Present regular rate and normal rhythm Abdominal Exam Abdominal exam: Present soft and normal bowel sounds Extremities Exam Extremities exam: Present normal inspection Back Exam Back exam: Present normal inspection Neurological Exam Neurological exam: Present alert and oriented X3 Psychiatric Psychiatric exam: Present normal affect and normal mood Skin Skin exam: Present warm, dry and intact Lymphatic Lymphatic Findings: no adenopathy Medical Decision Making Devan Inquiry Pt receiving controlled substance: No Devan was queried for this patient: No Vital Signs: 08/11/23 19:15 Temperature 98.0 F Temperature Source Oral Pulse Rate [Left Brachial] 77 Respiratory Rate 20 Blood Pressure [Left Arm] 113/64 Blood Pressure Mean [Left Arm] 80 Blood Pressure Source [Left Arm] Automatic Cuff Blood Pressure Position [Left Arm] Sitting 02 Sat by Pulse Oximetry 99 Oxygen Delivery Method Room Air
[2023-08-11 19:38] LABS: UTC Strep Screen (Rapid) Negative (Negative)
[2023-08-11 19:46] VITALS: BP 113/64; PULSE 77; RESP 20; TEMP 36.7; O2SAT 99
== END 2023-08-11 19:48 | disposition home or self-care (01) ==
PROVIDERS: Emergency Provider Nurse Practitioner Family; PCP Nurse Practitioner Family
DX: O26.892 Other specified pregnancy related conditions, second trimester (principal); R05.9 Cough, unspecified; R07.0 Pain in throat; J06.9 Acute upper respiratory infection, unspecified; Z3A.18 18 weeks gestation of pregnancy
CPT/HCPCS: 87880; 99212; 99214; G0463

== ENCOUNTER 2023-09-11 19:46 | Outpatient (CLI) | payer MEDICAID, SELFPAY ==
[2023-09-11 19:58] VITALS: BMI 21.9
[2023-09-11 20:13] VITALS: BP 108/66; PULSE 82; RESP 17; TEMP 36.7; O2SAT 99; BMI 21.9
[2023-09-11 20:13] LABS: Microscopic, Urine URINE MICROSCOPIC (MICROSCOPIC)
[2023-09-11 20:22] LABS: Appearance,Urine CLEAR (Clear); Bilirubin,Urine Negative (Negative); Blood, Urine Negative (Negative); Color,Urine YELLOW (Yellow); Glucose,Urine (UA) Negative (Negative); Ketones,Urine Negative (Negative); Leukocyte Esterase,Urine TRACE (Negative); Nitrate,Urine Negative (Negative); Protein,Urine Negative (Negative); Specific Gravity, Urine <= 1.005 (1.005-1.030); Urobilinogen,Urine 0.2 EU/dl (0.2)
[2023-09-11 20:36] LABS: Barbiturates Screen,Urine Negative ng/ml (<200)
[2023-09-11 20:37] LABS: Benzodiazepines Screen,Urine Negative ng/ml (<200)
[2023-09-11 20:38] LABS: Amphetamine/Metha Screen,Urine Negative ng/ml (<1000); Cocaine Screen,Urine Negative ng/ml (<300)
[2023-09-11 20:39] LABS: Methadone Screen,Urine Negative ng/ml (<300)
[2023-09-11 20:40] LABS: Cannabinoid Screen,Urine Negative ng/ml (<50); Phencyclidine Screen,Urine Negative ng/ml (<25)
[2023-09-11 20:41] LABS: Opiate Screen,Urine Negative ng/ml (<300)
[2023-09-11 20:42] LABS: Bacteria,Urine Trace /lpf
[2023-09-11] MEDS: ACETAMINOPHEN 325MG TAB 650 MG PO (21:00)
== END 2023-09-11 21:40 | disposition home or self-care (01) ==
LOC: OBOUT 19:48 → OB 19:49
PROVIDERS: PCP Nurse Practitioner Family; Visit Provider Nurse Practitioner Obstetrics & Gynecology
DX: O26.892 Other specified pregnancy related conditions, second trimester (principal); Z3A.20 20 weeks gestation of pregnancy; R10.30 Lower abdominal pain, unspecified
CPT/HCPCS: 80307; 81001; G0463

== ENCOUNTER 2023-09-23 19:31 | Emergency (ER) | payer MEDICAID, SELFPAY ==
[2023-09-23 19:33] VITALS: BP 124/87; PULSE 112; RESP 18; TEMP 36.8; O2SAT 100; BMI 20.7
--- NOTE | 2023-09-23 19:34 | ED_ITS ---
<Statement entered by Ni Moreau DO - 09/24/23 00:25> I was consulted by the RAY, and we discussed the complexity of the problems being addressed. I approved the treatment and management plan for this patient's care in the emergency department, thus performing a substantive portion of the medical decision making. Ni Moreau DO Discharge Plan Disposition Patient Disposition: Home, Self-Care Prescriptions Prescriptions: No Action fluticasone propionate [24 Hour Allergy Relief] 50 mcg/actuation spray,suspension 2 spray intranasal DAILY Qty: 16 0RF Rx Instructions: administer into each nostril Referrals Follow up/Referrals: Km Navarro APRN [Primary Care Provider] - See instructions Activity Restrictions/Add. Instructions Additional Instructions/Restrictions: Follow-up with your GAS WORKER as scheduled. Follow-up with your PCP for any worsening signs or symptoms or return to ER as needed Clinical Impressions Clinical Impression: Electrical shock sensation Print Language Print Language: Sierra Leonean Discharge ED Provider: Ni Moreau General Adult HPI <DAKOTA Cruz - Last Filed: 09/24/23 00:24> General Chief complaint: PAIN Stated complaint: electric shoke 22 weeks preg Time Seen by Provider: 09/23/23 19:34 History of Present Illness HPI narrative: Patient presents for evaluation of possible electric shock. Patient states that she was closing the door of a commercial storage facility when she felt a shock. She then felt another shock as she was walking across the parking lot in a puddle of water that went through her entire body. Upon questioning about the patient and her significant other in the room there was no evidence of a down powerline or other electrical hazard visible. The building is [address] [facility] current facility. Patient states that she felt tingling all over her entire body. She did not lose consciousness had no chest pain shortness of breath fever chills hemoptysis hematochezia melena nausea vomiting diarrhea. Her only complaint now is body wide muscle soreness. Patient is 22 weeks and states that she had not felt her baby move in 15 minutes at the time of arrival Related Data Previous Rx's ?Medication ?Instructions ?Recorded fluticasone propionate 50 2 spray intranasal DAILY #16 grams 08/11/23 mcg/actuation nasal spray,suspension (24 Hour Allergy Relief) Allergies Allergy/AdvReac Type Severity Reaction Status Date / Time amoxicillin Allergy Intermediate Swelling Verified 05/05/23 12:54 of Lip/Tongue/Throat pecan nut Allergy Unknown Verified 05/05/23 12:54 red dye Allergy Unknown -- Verified 05/05/23 12:54 Penicillins Allergy Verified 05/05/23 12:54 PFSH <DAKOTA Cruz - Last Filed: 09/24/23 00:24> [facility] Disclaimer: The information contained in this section may have been updated after the patient was seen, as this information can be updated by other users. Medical History Anxiety Ovarian cyst Seizures Surgical History History of delivery x2 Family History Mother Tumor of thyroid Other No significant family history 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 Smoking Status: Current every day smoker tobacco type: cigarettes packs per day: 1 alcohol intake: current alcohol intake frequency: holidays/special occasions only substance use type: denies use current occupational status: unemployed Travel in the last 8 weeks: None household members: family housing: house <DAKOTA Cruz - Last Filed: 09/24/23 00:24> ROS Obtained: Yes Systems reviewed as appropriate & no additional complaints except as documented Physical Exam <DAKOTA Cruz - Last Filed: 09/24/23 00:24> General General appearance: alert and in no apparent distress Head Head exam: atraumatic and normal inspection Eye Eye exam: Present normal appearance and EOMI ENT ENT exam: Present normal exam and normal oropharynx Neck Neck exam: Present normal inspection and full ROM Chest Chest inspection: Present normal inspection and symmetric chest wall rise Respiratory Respiratory exam: Present normal lung sounds bilaterally Cardiovascular Cardiovascular exam: Present regular rate, normal rhythm and normal heart sounds Abdominal Exam Abdominal exam: Present soft (Gravid) and normal bowel sounds; Absent tenderness Extremities Exam Extremities exam: Present normal inspection and full ROM Back Exam Back exam: Present normal inspection and full ROM; Absent tenderness Neurological Exam Neurological exam: Present alert, oriented X3 and CN II-XII intact Psychiatric Psychiatric exam: Present normal affect and normal mood Skin Skin exam: Present warm, dry and normal color Medical Decision Making <DAKOTA Cruz - Last Filed: 09/24/23 00:24> Medical Records Medical records reviewed: Yes I reviewed the patient's medical records. Devan Inquiry Pt receiving controlled substance: No Vital Signs: 09/23/23 19:33 09/23/23 21:42 Temperature 98.3 F 98.8 F Temperature Source Oral Oral Pulse Rate 80 Pulse Rate [Left Radial] 112 H Respiratory Rate 18 18 Blood Pressure 107/69 L Blood Pressure [Right Arm] 124/87 Blood Pressure Mean [Right Arm] 99 Blood Pressure Source Automatic Cuff Blood Pressure Source [Right Arm] Automatic Cuff Blood Pressure Position Supine Blood Pressure Position [Right Arm] Sitting 02 Sat by Pulse Oximetry 100 Oxygen Delivery Method Room Air Room Air Lab Data Lab results reviewed: Yes I reviewed the patient's lab results. Lab Results 09/23/23 21:08: WBC 17.6 H, RBC 3.65 L, Hgb 11.1 L, Hct 33.2 L, MCV 91.1, MCH 30.5, MCHC 33.5, RDW 13.6, Plt Count 246, MPV 8.2, Neut % (Auto) 79.9, Lymph % (Auto) 15.3, [place] % (Auto) 3.5, Eos % (Auto) 1.0, Baso % (Auto) 0.3, Neut # (Auto) 14.1 H, Lymph # (Auto) 2.7, [place] # (Auto) 0.6, Eos # (Auto) 0.2, Baso # (Auto) 0.1, Total Counted 100, Neutrophils % (Manual) 80 H, Lymphocytes % (Manual) 13, Atypical Lymphs % 2.0, Monocytes % (Manual) 2, Eosinophils % (Manual) 3, RBC Morphology Normal, Sodium 138, Potassium 3.5, Chloride 109 H, Carbon Dioxide 29, Anion Gap 3.5 L, BUN 2 L, Creatinine 0.40 L, Estimated Creat Clear 201, Estimated GFR 193, Est GFR ( Amer) 233, Glucose 90, Calcium 8.4, Total Bilirubin < 0.1 L, AST 25, ALT 16, Alkaline Phosphatase 72, Total Creatine Kinase 22 L, Troponin I < 0.01, Total Protein 6.1 L, Albumin 3.4 L, Globulin 2.7, Albumin/Globulin Ratio 1.3 09/23/23 21:08 09/23/23 21:08 Orders (Tests/Meds): ORDERS Category Date Time Status POCUS Point of Care (ER Only) Stat Exams 09/23/23 19:42 Taken CK [Creatine Kinase] Stat Lab 09/23/23 21:08 Completed Complete Blood Count Auto Diff Stat Lab 09/23/23 21:08 Completed Comprehensive Metabolic Panel Stat Lab 09/23/23 21:08 Completed Trop I [Troponin I] Stat Lab 09/23/23 21:08 Completed Medical Decision Narrative: In summary patient is a 28-year-old female who presents to the emergency department for evaluation of electric shock sensation. Patient is hemodynamically stable upon arrival, afebrile. Physical exam is unremarkable and nonfocal including no evidence of contact coates from electrical discharge no evidence of tetany no contusions abrasions ecchymosis noted normal heart sounds normal breath sounds and normal sinus rhythm on the bedside monitor. Differential diagnosis includes actual electrical shock versus electric shock sensation versus anxiety etc. Initial workup will be conducted with hematologic labs twelve-lead EKG POCUS. Initial interventions seen Aminofen for muscle soreness. Initial workup reviewed by me shows that her twelve-lead EKG shows normal sinus rhythm without electrical abnormality, her hematologic labs are normal including an lower than normal CK level, and POCUS shows normal development with normal heart tones. Upon repeat evaluation patient reports some symptomatic improvement in her muscle soreness after ministration of Tylenol. Given this patient is appropriate for discharge with strict return precautions. It seems unlikely the patient received a significant high-voltage discharge and may have received a static electricity versus possible alternating current shock but has no visible stigmata of such. Patient to follow-up with GAS WORKER as scheduled and follow-up with her PCP for any worsening signs or symptoms <Ni Moreau, DO - Last Filed: 09/23/23 20:47> Vital Signs: 09/23/23 19:33 09/23/23 21:42 Temperature 98.3 F 98.8 F Temperature Source Oral Oral Pulse Rate 80 Pulse Rate [Left Radial] 112 H Respiratory Rate 18 18 Blood Pressure 107/69 L Blood Pressure [Right Arm] 124/87 Blood Pressure Mean [Right Arm] 99 Blood Pressure Source Automatic Cuff Blood Pressure Source [Right Arm] Automatic Cuff Blood Pressure Position Supine Blood Pressure Position [Right Arm] Sitting 02 Sat by Pulse Oximetry 100 Oxygen Delivery Method Room Air Room Air Lab Data Lab Results 09/23/23 21:08: WBC 17.6 H, RBC 3.65 L, Hgb 11.1 L, Hct 33.2 L, MCV 91.1, MCH 30.5, MCHC 33.5, RDW 13.6, Plt Count 246, MPV 8.2, Neut % (Auto) 79.9, Lymph % (Auto) 15.3, [place] % (Auto) 3.5, Eos % (Auto) 1.0, Baso % (Auto) 0.3, Neut # (Auto) 14.1 H, Lymph # (Auto) 2.7, [place] # (Auto) 0.6, Eos # (Auto) 0.2, Baso # (Auto) 0.1, Total Counted 100, Neutrophils % (Manual) 80 H, Lymphocytes % (Manual) 13, Atypical Lymphs % 2.0, Monocytes % (Manual) 2, Eosinophils % (Manual) 3, RBC Morphology Normal, Sodium 138, Potassium 3.5, Chloride 109 H, Carbon Dioxide 29, Anion Gap 3.5 L, BUN 2 L, Creatinine 0.40 L, Estimated Creat Clear 201, Estimated GFR 193, Est GFR ( Amer) 233, Glucose 90, Calcium 8.4, Total Bilirubin < 0.1 L, AST 25, ALT 16, Alkaline Phosphatase 72, Total Creatine Kinase 22 L, Troponin I < 0.01, Total Protein 6.1 L, Albumin 3.4 L, Globulin 2.7, Albumin/Globulin Ratio 1.3 Orders (Tests/Meds): ORDERS Category Date Time Status POCUS Point of Care (ER Only) Stat Exams 09/23/23 19:42 Taken CK [Creatine Kinase] Stat Lab 09/23/23 21:08 Completed Complete Blood Count Auto Diff Stat Lab 09/23/23 21:08 Completed Comprehensive Metabolic Panel Stat Lab 09/23/23 21:08 Completed Trop I [Troponin I] Stat Lab 09/23/23 21:08 Completed ECG Data Tracing #1: I reviewed this ECG and interpreted as documented below: Normal sinus rhythm with a ventricular rate of [address] changes concerning for ischemia. Normal axis and intervals ECG initial impression date: 09/23/23 ECG initial impression time: 19:40 Procedures <Ni Moreau, - Last Filed: 09/23/23 20:47> Limited Ultrasound Findings:: Limited OB ultrasound Indication: , decreased movement Identified structures: uterus, pouch of yaron Findings: Uterus: definitive IUP with good movement and fluid FHR: 140 Cul de sac: -free fluid absent Impression: -IUP: Present - heart rate: 140 -Free fluid: absent Images were saved to permanent archive The study was technically adequate CPT Transabdominal: 99117-00 This study was performed by me, and I personally interpreted all images/videos. Based on my clinical judgement, these images were adequate and did not necessitate further imaging. Critical Care <DAKOTA Cruz - Last Filed: 09/24/23 00:24> Critical Care Time Critical Care Time: No
--- NOTE | 2023-09-23 19:39 | ECG_ITS ---
APPROVED REPORT Exam: Resting ECG HR:89 bpm ECG Measurements Heart Rate 89 AXES DE 146 P 56 QRSd 93 QRS 63 QT 363 T 53 QTc 410 Conclusion SINUS RHYTHM NORMAL ECG Electronically signed by : MARJAN SHEIKH, 09/24/2023 00:48:46
--- NOTE | 2023-09-23 20:02 | PC.NURSE ---
pt given orange juice and warm blanket
[2023-09-23 21:20] LABS: Basophils # 0.1 K/mm3 (0-0.2); Basophils % 0.3 % (0.1-2.0); Eosinophils # 0.2 K/mm3 (0.0-0.4); Hematocrit 33.2 % (37.0-47.0); Hemoglobin 11.1 g/dL (12.2-16.2); Lymphocytes # 2.7 K/mm3 (0.7-4.5); Lymphocytes % 15.3 % (10-50); Mean Corpuscular HGB Conc 33.5 g/dL (31.8-35.4); Mean Corpuscular Hemoglobin 30.5 pg (27.0-31.2); Mean Corpuscular Volume 91.1 fl (81-99); Mean Platelet Volume 8.2 fl (7.4-10.4); Monocytes # 0.6 K/mm3 (0.1-1.0); Monocytes % 3.5 % (1.7-9.3); Neutrophils # 14.1 K/mm3 (1.8-7.8); Neutrophils % 79.9 % (37.0-80.0); Platelet Count 246 K/mm3 (142-424); Red Blood Count 3.65 M/mm3 (4.20-5.40); Red Cell Distribution Width 13.6 % (11.5-17.5); White Blood Count 17.6 K/mm3 (4.8-10.8)
[2023-09-23 21:22] LABS: MANUAL DIFFERENTIAL MANUAL DIFFERENTIAL (MANUAL DIFF)
[2023-09-23 21:24] LABS: Albumin Level 3.4 g/dl (3.5-5.0); Chloride 109 mmol/L (98-107)
[2023-09-23 21:25] LABS: Potassium 3.5 mmoL/L (3.5-5.1); Sodium 138 mmol/L (136-145)
[2023-09-23 21:27] LABS: Alanine Aminotransferase 16 U/L (12-78); Aspartate Amino Transferase 25 U/L (14-36); Blood Urea Nitrogen 2 mg/dl (7-17); Creatinine Clearance Estimated 201 mL/min (50-200); Estimated Glomerular Filt Rate 193 ml/min (>60); GFR (African American) 233 ML/MIN (>60)
[2023-09-23 21:28] LABS: Albumin/Globulin Ratio 1.3 (1.1-1.8); Alkaline Phosphatase 72 U/L (38-126); Anion Gap 3.5 mEq/L (5-15); Calcium 8.4 mg/dl (8.4-10.2); Carbon Dioxide 29 mmol/L (22.0-30.0); Creatine Kinase 22 U/L (30-135); Globulin 2.7 g/dL (1.3-3.2); Glucose 90 mg/dl (74-100); Total Protein,Serum 6.1 g/dl (6.3-8.2)
[2023-09-23 21:37] LABS: Bilirubin,Total < 0.1 mg/dl (0.2-1.3)
[2023-09-23 21:42] VITALS: BP 107/69; PULSE 80; RESP 18; TEMP 37.1; O2SAT 99
[2023-09-23 21:46] LABS: Troponin I < 0.01 ng/ml (0.00-0.034)
[2023-09-23 21:52] LABS: Eosinophils % 3 % (0-3); Lymphocytes % 13 % (10-50); Monocytes % 2 % (2-9); Neutrophils % 80 % (42-76); Total Cells Counted 100
[2023-09-23 21:53] LABS: RBC Morphology Normal
== END 2023-09-23 21:47 | disposition home or self-care (01) ==
PROVIDERS: Emergency Provider Emergency Medicine; PCP Nurse Practitioner Family
DX: O26.892 Other specified pregnancy related conditions, second trimester (principal); R20.8 Other disturbances of skin sensation; Z3A.22 22 weeks gestation of pregnancy
CPT/HCPCS: 80053; 82550; 84484; 85007; 85025; 85027; 93005; 99284

== ENCOUNTER 2023-11-01 11:28 | Outpatient (CLI) | payer MEDICAID, SELFPAY ==
[2023-11-01 11:40] VITALS: BMI 22.8
[2023-11-01 11:50] LABS: Appearance,Urine CLEAR (Clear); Bilirubin,Urine Negative (Negative); Blood, Urine Negative (Negative); Color,Urine YELLOW (Yellow); Glucose,Urine (UA) Negative (Negative); Ketones,Urine Negative (Negative); Leukocyte Esterase,Urine 1+ (Negative); Microscopic, Urine URINE MICROSCOPIC (MICROSCOPIC); Nitrate,Urine Negative (Negative); PH,Urine 8.5 (5.0-8.5); Protein,Urine Negative (Negative); Urobilinogen,Urine 0.2 EU/dl (0.2)
[2023-11-01 11:58] LABS: Bacteria,Urine Trace /lpf
[2023-11-01 12:02] LABS: Barbiturates Screen,Urine Negative ng/ml (<200)
[2023-11-01 12:03] LABS: Benzodiazepines Screen,Urine Negative ng/ml (<200)
[2023-11-01 12:04] LABS: Amphetamine/Metha Screen,Urine Negative ng/ml (<1000); Methadone Screen,Urine Negative ng/ml (<300)
[2023-11-01 12:05] LABS: Cannabinoid Screen,Urine Negative ng/ml (<50)
[2023-11-01 12:06] LABS: Cocaine Screen,Urine Negative ng/ml (<300); Opiate Screen,Urine Negative ng/ml (<300)
[2023-11-01 12:07] LABS: Phencyclidine Screen,Urine Negative ng/ml (<25)
[2023-11-01 13:14] VITALS: BP 108/71; PULSE 84; RESP 15; TEMP 36.7; O2SAT 98; BMI 22.8
== END 2023-11-01 12:57 | disposition home or self-care (01) ==
LOC: OBOUT 11:30 → OB 11:31
PROVIDERS: Obstetrics & Gynecology; PCP Family Medicine; Visit Provider Obstetrics & Gynecology
DX: O36.8120 Decreased fetal movements, second trimester, not applicable or unspecified (principal); Z3A.27 27 weeks gestation of pregnancy; M54.50 Low back pain, unspecified
CPT/HCPCS: 80307; 81001; 87086; G0463

== ENCOUNTER 2023-11-01 12:59 | Emergency (ER) | payer MEDICAID, SELFPAY ==
[2023-11-01 13:14] VITALS: BP 107/72; PULSE 74; RESP 18; TEMP 36.8; O2SAT 100; BMI 22.8
--- NOTE | 2023-11-01 13:18 | ED_ITS ---
Discharge Plan Disposition Patient Disposition: Home, Self-Care Condition: Good Prescriptions Prescriptions: New promethazine 25 mg tablet 25 mg PO TID PRN (Reason: nausea and vomiting) Qty: 20 0RF No Action azithromycin [Zithromax] 250 mg tablet 250 mg PO UD DOSE PK Qty: 6 0RF Rx Instructions: Take two (2) tablets today, then one (1) tablet days #2 thru #5 fluticasone propionate [24 Hour Allergy Relief] 50 mcg/actuation spray,suspension 2 spray intranasal DAILY Qty: 16 0RF Rx Instructions: administer into each nostril Referrals Follow up/Referrals: Marcellus Toussaint [Primary Care Provider] - See instructions Activity Restrictions/Add. Instructions Additional Instructions/Restrictions: Drink plenty of fluids. Take tylenol or ibuprofen for pain or fever. Take the medications as directed. Follow up with your regular doctor. GO TO THE ER FOR ANY WORSENING SYMPTOMS The nausea medication (promethazine) will make you drowsy, so don't drive or operate heavy machinery after taking it. Clinical Impressions Clinical Impression: Acute viral syndrome, Instructions Patient Instructions: DI for Viral Syndrome, Promethazine Print Language Print Language: Burmese Discharge ED Provider: Tuan Burnham [facility] HPI General Stated complaint: body ache lethargy weakness Mode of Arrival: Ambulatory Source of Information: Patient Limitations: No Limitations Time Seen by Provider: 11/01/23 13:18 Description of Symptoms (Recalled from Triage Doc. by RN): Patient reports that she wants a COVID, flu and strep test. States she generally does not feel well. HEENT Symptoms (Recalled from RN notes): Yes Resp Symptoms (Recalled from RN notes): No Skin Symptoms (Recalled from RN notes): No MS Symptoms (Recalled from RN notes): No Functional Status (Recalled from RN notes): wnl History of Present Illness Provider Complaint: She states that for the past 3 days she has had sore throat, chills, body aches and low grade fever. She is 22 weeks . She went OB department first to have her baby checked out because she states that he has not been moving as much as normal. She states that she was told the baby is fine and it was recommended for her to come to be checked for covid-19 and strep. Related Data Previous Rx's ?Medication ?Instructions ?Recorded fluticasone propionate 50 2 spray intranasal DAILY #16 grams 08/11/23 mcg/actuation nasal spray,suspension (24 Hour Allergy Relief) azithromycin 250 mg tablet 250 mg PO UD DOSE PK #6 tabs 10/26/23 (Zithromax) promethazine 25 mg tablet 25 mg PO TID PRN nausea and 11/01/23 vomiting #20 tabs Allergies Allergy/AdvReac Type Severity Reaction Status Date / Time amoxicillin Allergy Intermediate Swelling Verified 05/05/23 12:54 of Lip/Tongue/Throat pecan nut Allergy Unknown Verified 05/05/23 12:54 red dye Allergy Unknown -- Verified 05/05/23 12:54 Penicillins Allergy Verified 05/05/23 12:54 Worker's Comp Is this a Worker's Comp case?: No [facility] Disclaimer: The information contained in this section may have been updated after the patient was seen, as this information can be updated by other users. Medical History Anxiety Ovarian cyst Seizures Surgical History History of delivery x2 Family History Mother Tumor of thyroid Other No significant family history 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 Smoking Status: Current every day smoker tobacco type: cigarettes packs per day: 1 alcohol intake: current alcohol intake frequency: holidays/special occasions o nly substance use type: denies use current occupational status: unemployed Travel in the last 8 weeks: None household members: family housing: house ROS Obtained: Yes All systems reviewed & no additional complaints except as documented Constitutional Constitutional: Reports chills and Reports fever(s) Eyes Eyes: Denies eye discharge ENT Ears, Nose, Mouth, and Throat: Reports as per HPI Cardiovascular Cardiovascular: Denies chest pain Respiratory Respiratory: Denies chest congestion and Reports cough Gastrointestinal Gastrointestingal: Reports nausea; Denies abdominal pain, constipation, cramping, diarrhea or vomiting Musculoskeletal Musculoskeletal: Denies arthralgias Integumentary/Breasts Skin/Breast: Denies rash Neurologic Neurologic: Denies paresthesias Physical Exam General General appearance: alert and in no apparent distress Head Head exam: atraumatic, normocephalic and normal inspection Eye Eye exam: Present normal appearance, PERRL and EOMI ENT ENT exam: Present mucous membranes moist and normal external ear exam Expanded ENT Exam TM/Canal exam: Bilateral TM: erythema and bulging Nose exam: Absent sinus tenderness Mouth exam: Present normal external inspection; Absent drooling Teeth exam: Present normal inspection Throat exam: Present tonsillar erythema, tonsillomegaly and tonsillar exudate Neck Neck exam: Present normal inspection, full ROM and trachea midline; Absent tenderness, meningismus or lymphadenopathy Chest Chest inspection: Present normal inspection and symmetric chest wall rise; Absent tenderness Respiratory Respiratory exam: Present normal lung sounds bilaterally; Absent respiratory distress, wheezes, stridor or accessory muscle use Cardiovascular Cardiovascular exam: Present regular rate and normal rhythm; Absent systolic murmur or diastolic murmur Abdominal Exam Abdominal exam: Present soft and normal bowel sounds; Absent distention, tenderness, guarding, rebound or rigidity Extremities Exam Extremities exam: Present normal inspection and normal capillary refill; Absent calf tenderness Back Exam Back exam: Present normal inspection and full ROM; Absent tenderness, CVA tenderness (R) or CVA tenderness (L) Neurological Exam Neurological exam: Present alert, oriented X3 and CN II-XII intact Psychiatric Psychiatric exam: Present normal affect and normal mood Skin Skin exam: Present warm, dry, intact and normal color Medical Decision Making Medical Records Medical records reviewed: No I reviewed the patient's medical records. Devan Inquiry Pt receiving controlled substance: No Vital Signs: 11/01/23 13:14 Temperature 98.3 F Temperature Source Oral Pulse Rate [Radial] 74 Respiratory Rate 18 Blood Pressure [Right Arm] 107/72 L Blood Pressure Mean [Right Arm] 83 Blood Pressure Source [Right Arm] Automatic Cuff Blood Pressure Position [Right Arm] Sitting 02 Sat by Pulse Oximetry 100 Oxygen Delivery Method Room Air Lab Data Lab results reviewed: Yes I reviewed the patient's lab results. Orders (Tests/Meds): ORDERS Category Date Time Status Covid-19 Nasal PCR ([facility]) Routine Lab 11/01/23 13:12 Received
[2023-11-01 13:43] LABS: UTC Strep Screen (Rapid) Negative (Negative)
[2023-11-01 13:44] LABS: Coronavirus 19, PCR Not Detected (NotDetected); Influenza A, PCR Not Detected (NotDetected); Influenza B, PCR Not Detected (NotDetected)
[2023-11-01 14:11] VITALS: BP 107/72; PULSE 74; RESP 18; TEMP 36.8; O2SAT 100
== END 2023-11-01 14:11 | disposition home or self-care (01) ==
PROVIDERS: Emergency Provider Nurse Practitioner Family; PCP Family Medicine
DX: O26.892 Other specified pregnancy related conditions, second trimester (principal); R07.0 Pain in throat; R50.9 Fever, unspecified; M79.18 Myalgia, other site; B34.9 Viral infection, unspecified
CPT/HCPCS: 87635; 87636; 87880; 99212; 99214; G0463

== ENCOUNTER 2023-11-07 20:26 | Outpatient (CLI) | payer MEDICAID, SELFPAY ==
[2023-11-07 20:44] VITALS: BMI 23.3
[2023-11-07 20:49] LABS: Microscopic, Urine URINE MICROSCOPIC (MICROSCOPIC)
[2023-11-07 20:51] LABS: Appearance,Urine CLEAR (Clear); Bilirubin,Urine Negative (Negative); Blood, Urine Negative (Negative); Color,Urine YELLOW (Yellow); Glucose,Urine (UA) Negative (Negative); Ketones,Urine Negative (Negative); Leukocyte Esterase,Urine 2+ (Negative); Nitrate,Urine Negative (Negative); PH,Urine 7.5 (5.0-8.5); Protein,Urine Negative (Negative); Urobilinogen,Urine 0.2 EU/dl (0.2)
[2023-11-07 20:55] LABS: Bacteria,Urine 1+ /lpf; RBC,Urine Occasional #/hpf (0-3)
[2023-11-07 21:02] LABS: Barbiturates Screen,Urine Negative ng/ml (<200); Benzodiazepines Screen,Urine Negative ng/ml (<200)
[2023-11-07 21:03] LABS: Amphetamine/Metha Screen,Urine Negative ng/ml (<1000)
[2023-11-07 21:04] LABS: Cannabinoid Screen,Urine Negative ng/ml (<50); Cocaine Screen,Urine Negative ng/ml (<300)
[2023-11-07 21:05] LABS: Methadone Screen,Urine Negative ng/ml (<300)
[2023-11-07 21:06] LABS: Opiate Screen,Urine Negative ng/ml (<300); Phencyclidine Screen,Urine Negative ng/ml (<25)
[2023-11-07 21:07] LABS: Fetal Membrane Rupture (Rapid) Negative (Negative)
[2023-11-07] MEDS: ACETAMINOPHEN 500MG TAB 1000 MG PO (21:20)
[2023-11-07] MEDS: LACTATED RINGERS 1000ML 1,000 ML 999 ML IV (21:21)
[2023-11-07 21:49] VITALS: BP 119/72; PULSE 77; RESP 18; TEMP 36.8; O2SAT 99; BMI 23.3
== END 2023-11-07 22:15 | disposition home or self-care (01) ==
LOC: OBOUT 20:28 → OB 20:30
PROVIDERS: PCP Nurse Practitioner Family; Visit Provider Obstetrics & Gynecology
DX: O47.03 False labor before 37 completed weeks of gestation, third trimester (principal); Z3A.28 28 weeks gestation of pregnancy
CPT/HCPCS: 80307; 81001; 84112; 87086; G0463; J7120

== ENCOUNTER 2024-02-02 09:40 | Outpatient (CLI) | payer MEDICAID, SELFPAY | END 2024-02-02 23:59 | disposition home or self-care (01) | LOC: LAB.DROPOF 02-03 10:52 | PROVIDERS: PCP Student in an Organized Health Care Education/Training Program; Visit Provider Student in an Organized Health Care Education/Training Program | DX: J02.9 Acute pharyngitis, unspecified (principal) | CPT/HCPCS: 87070; 87077; 87186 ==

== ENCOUNTER 2024-02-17 22:54 | Emergency (ER) | payer MEDICAID, SELFPAY ==
[2024-02-17 22:55] VITALS: BP 123/86; PULSE 87; RESP 16; TEMP 36.9; O2SAT 100; BMI 23.5
--- NOTE | 2024-02-17 23:18 | XR_ITS ---
PROCEDURE INFORMATION: Exam: XR Chest Exam date and time: 02/17/2024 11:25 PM Age: 28 years old Clinical indication: Cough TECHNIQUE: Imaging protocol: Radiologic exam of the chest. Views: 2 views. COMPARISON: CR XR CHEST 2V 02/23/2023 8:53 PM FINDINGS: Lungs: Peribronchial interstitial infiltrates are present bilaterally. No airspace disease. Pleural spaces: No pleural effusions. Heart/Mediastinum: Unremarkable. No cardiomegaly. Bones/joints: Osseous structures are appropriate for age. IMPRESSION: Airways disease or infectious bronchitis. No acute airspace pneumonia.
[2024-02-18 00:08] LABS: Strep Scrn Group A (Rapid) Negative (Negative)
--- NOTE | 2024-02-18 00:14 | ED_ITS ---
Discharge Plan Disposition Patient Disposition: Home, Self-Care Condition: Good Prescriptions Prescriptions: New cefdinir 300 mg capsule 300 mg PO BID 10 Days Qty: 20 0RF Referrals Follow up/Referrals: Deysi Berg PA [Primary Care Provider] - See instructions Activity Restrictions/Add. Instructions Additional Instructions/Restrictions: You were evaluated in the ER and are appropriate for discharge at this time. Take Tylenol, ibuprofen if needed for headache, body aches, sore throat. Take the prescribed cefdinir as directed, do not skip doses, do not stop taking it early. Drink plenty of water. Make an appointment with your primary care doctor for reevaluation in a few days. Return to the ER with new, worsening, or otherwise concerning symptoms. Clinical Impressions Clinical Impression: Headache, Bronchitis, Sore throat Print Language Print Language: Comoran Discharge ED Provider: Francisco Joe Adult HPI General Chief complaint: Upper Respiratory Infection Stated complaint: vomiting, ONEAL, sore throat Time Seen by Provider: 02/17/24 23:17 Mode of Arrival: Ambulatory Source of Information: Patient Limitations: No Limitations Description of Symptoms (Recalled from ER Triage Doc. by RN): pt has had sore throat for two weeks and now pt has been having a cough and headache as well. pt denies any fevers History of Present Illness HPI narrative: 28-year-old female 1 month presents to the ER with complaint of sore throat, cough, headache. Patient states she has had symptoms for the last 2 weeks. She states she tested negative for strep but had a positive culture, however due to amoxicillin allergy they did not treat her with any antibiotics. She states her throat still is sore, she has headache, and persistent nonproductive cough. She reports no vomiting or diarrhea, no fevers. She states she is not currently taking any daily medications. She denies abdominal pain, dysuria, chest pain, difficulty breathing, numbness, tingling, weakness. Related Data Previous Rx's ?Medication ?Instructions ?Recorded cefdinir 300 mg capsule 300 mg PO BID 10 days #20 caps 02/18/24 Allergies Allergy/AdvReac Type Severity Reaction Status Date / Time Penicillins Allergy Severe Swelling Verified 02/02/24 09:36 of Lip/Tongue/Throat amoxicillin Allergy Intermediate Swelling Verified 02/02/24 09:36 of Lip/Tongue/Throat pecan nut Allergy Unknown Anaphylaxis Verified 02/02/24 09:36 red dye Allergy Unknown -- Verified 02/02/24 09:36 brompheniramine Allergy Anaphylaxis Verified 02/02/24 09:36 [facility] Disclaimer: The information contained in this section may have been updated after the patient was seen, as this information can be updated by other users. Medical History Seizures Anxiety Ovarian cyst Surgical History History of delivery x2 Family History Mother Tumor of thyroid stated it was found in the uterus Other No significant family history 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 Smoking Status: Never smoker alcohol intake: current alcohol intake frequency: holidays/special occasions only substance use type: denies use current occupational status: unemployed Travel in the last 8 weeks: None household members: family housing: house Other Medical History Have you received the Flu Vaccine for this season: No Have you received the Pneumonia Vaccine: No ROS Obtained: Yes Systems reviewed as appropriate & no additional complaints except as documented Per HPI Physical Exam General General appearance: alert and in no apparent distress Head Head exam: atraumatic and normocephalic Eye Eye exam: Present PERRL and EOMI ENT ENT exam: Present mucous membranes moist and other (Mild posterior oropharyngeal erythema without tonsillomegaly or exudate) Neck Neck exam: Present normal inspection and full ROM; Absent lymphadenopathy Chest Chest inspection: Present symmetric chest wall rise Respiratory Respiratory exam: Present normal lung sounds bilaterally; Absent respiratory distress, wheezes or stridor Cardiovascular Cardiovascular exam: Present regular rate and normal rhythm Abdominal Exam Abdominal exam: Present soft; Absent distention or tenderness Extremities Exam Extremities exam: Present full ROM Neurological Exam Neurological exam: Present alert, oriented X3, CN II-XII intact and normal gait; Absent motor sensory deficit Psychiatric Psychiatric exam: Present normal affect and normal mood Skin Skin exam: Present warm and dry Medical Decision Making Medical Records Medical records reviewed: Yes I reviewed the patient's medical records. Screening: Per USPSTF and CDC recommendations, given the prevalence of disease in our region, it is our hospital?s policy to screen for HIV and viral Hepatitis for all patients aged 18 and over and those with ongoing risk factors. MR Comment: Office visit from Deysi Berg earlier this month demonstrates patient was evaluated for sore throat that started the day of her visit. She was diagnosed with pharyngitis with a negative strep screen however review of labs demonstrates her throat culture was positive for group B strep Devan Inquiry Pt receiving controlled substance: No Vital Signs: 02/17/24 22:55 02/18/24 01:25 Temperature 98.4 F 98.1 F Temperature Source Oral Pulse Rate 81 Pulse Rate [Right] 87 Respiratory Rate 16 16 Blood Pressure 126/78 Blood Pressure [Right Arm] 123/86 Blood Pressure Mean [Right Arm] 98 02 Sat by Pulse Oximetry 100 Oxygen Delivery Method Room Air Room Air Lab Data Lab Results 02/17/24 23:43: Group A Strep Rapid Negative Orders (Tests/Meds): ED MEDICATIONS Discontinued Medications Generic Name Dose Route Start Last Admin Trade Name Freq PRN Reason Stop Dose Admin Cefdinir 300 mg 02/18/24 00:28 02/18/24 00:31 Cefdinir 300mg Capsule PO 02/18/24 00:29 300 mg ONCE ONE Administration ORDERS Category Date Time Status CXR 2 view (NOT portable) [XR chest 2V] Stat Exams 02/17/24 23:18 Completed Strep Scrn Group A (Rapid) Stat Lab 02/17/24 23:43 Completed Strep Screen Confirmation Stat Micro 02/17/24 23:43 Received Medical Decision Narrative: In summary, this 28-year-old female who is otherwise healthy presents to the emergency department today with cough, sore throat, headache. On initial evaluation patient is hemodynamically stable, afebrile, physical exam is notable for mild oropharyngeal erythema, no exudate, no tonsillomegaly, lungs clear bilaterally, normal neuroexam. Differential diagnosis includes but is not limited to viral syndrome, I considered pneumonia, bronchitis, viral pharyngitis, strep. Based on these concerns, I ordered group A strep swab, chest x-ray. Given patient's duration of symptoms there is not value in performing a viral swab at this time as it will not change room attendant. Chest x-ray personally interpreted demonstrates findings consistent with possible bronchitis consistent with patient's symptoms. See radiology read for final interpretation. Group A strep swab negative, however given patient's recent group B positive throat culture, I am going to treat the patient with cefdinir. Typically group B strep in the pharynx is colonization, however since she continues to be symptomatic with pharyngitis and I have susceptibilities available from the culture, will treat with cefdinir. Patient understands this and is comfortable with this plan. After discussion of risks and benefits of cough medication for her bronchitis, with shared decision making or not pursuing treatment due to the potential risks to her young child while patient is breast-feeding. Patient provided 1 dose of cefdinir in the ER. This was prescribed to her for outpatient management as well. She tolerated this medication in the ER. Patient was given instructions on symptomatic management, follow up instructions, and return precautions for the emergency department. Patient indicated understanding and was discharged in stable condition. Critical Care Critical Care Time Critical Care Time: No
[2024-02-18] MEDS: CEFDINIR 300MG CAPSULE 300 MG PO (00:31)
[2024-02-18 01:25] VITALS: BP 126/78; PULSE 81; RESP 16; TEMP 36.7; O2SAT 98
== END 2024-02-18 01:28 | disposition home or self-care (01) ==
PROVIDERS: Emergency Provider Emergency Medicine; PCP Student in an Organized Health Care Education/Training Program
DX: J40 Bronchitis, not specified as acute or chronic (principal); J02.9 Acute pharyngitis, unspecified; R51.9 Headache, unspecified; R05.9 Cough, unspecified
CPT/HCPCS: 71046; 87430; 99283

== ENCOUNTER 2024-04-12 19:02 | Emergency (ER) | payer MEDICAID, SELFPAY ==
[2024-04-12 19:08] VITALS: BP 115/87; PULSE 89; RESP 18; TEMP 36.9; O2SAT 98; BMI 25.0
[2024-04-12 19:23] LABS: Microscopic, Urine URINE MICROSCOPIC (MICROSCOPIC)
[2024-04-12 19:30] LABS: Urine Pregnancy, HCG Qual. Negative (Negative)
[2024-04-12 19:32] LABS: Appearance,Urine CLEAR (Clear); Bilirubin,Urine Negative (Negative); Blood, Urine 3+ (Negative); Color,Urine OTHER (Yellow); Glucose,Urine (UA) Negative (Negative); Ketones,Urine Negative (Negative); Leukocyte Esterase,Urine TRACE (Negative); Nitrate,Urine Negative (Negative); Protein,Urine Negative (Negative); Urobilinogen,Urine 0.2 EU/dl (0.2)
--- NOTE | 2024-04-12 19:48 | ED_ITS ---
Discharge Plan Disposition Patient Disposition: Home, Self-Care Condition: Good Prescriptions Prescriptions: New ondansetron 4 mg tablet,disintegrating 4 mg PO QID PRN (Reason: nausea and vomiting) Qty: 10 0RF Referrals Follow up/Referrals: Km Navarro APRN [Primary Care Provider] - See instructions Activity Restrictions/Add. Instructions Additional Instructions/Restrictions: Please follow-up with your [employer] within 48 hours. If you have any ongoing new or worsening signs or symptoms follow-up with your PCP or [employer] sooner or return to the ER as needed. Clinical Impressions Clinical Impression: Vaginal bleeding, Mass of uterus Print Language Print Language: Malawian Discharge ED Provider: Wili Dorantes General Adult HPI <DAKOTA Cruz - Last Filed: 04/12/24 21:12> General Chief complaint: Vaginal Bleeding Stated complaint: abdominal pain,dizzy,nausea Time Seen by Provider: 04/12/24 19:48 Mode of Arrival: Ambulatory Source of Information: Patient Limitations: No Limitations Description of Symptoms (Recalled from ER Triage Doc. by RN): Pt states she started to have vaginal bleeding yesterday. Last PM the bleeding started to become heavy with large clots, and is still soaking through 1 pad an hour. History of Present Illness HPI narrative: Patient presents for evaluation of vaginal bleeding. Patient delivered a baby in December. Patient has not had a period until 3 days ago. She states that she has been bleeding continuously for the last 3 days going through a pad approximately every hour. She also reports some lower abdominal cramping but denies any fever chills hemoptysis hematochezia melena nausea vomit diarrhea. Patient states that she called her [employer] who told her to come to the ER for evaluation for unknown reasons. Related Data Previous Rx's ?Medication ?Instructions ?Recorded ondansetron 4 mg disintegrating 4 mg PO QID PRN nausea and 04/12/24 tablet vomiting #10 tabs Allergies Allergy/AdvReac Type Severity Reaction Status Date / Time Penicillins Allergy Severe Swelling Verified 02/02/24 09:36 of Lip/Tongue/Throat amoxicillin Allergy Intermediate Swelling Verified 02/02/24 09:36 of Lip/Tongue/Throat pecan nut Allergy Unknown Anaphylaxis Verified 02/02/24 09:36 red dye Allergy Unknown -- Verified 02/02/24 09:36 brompheniramine Allergy Anaphylaxis Verified 12/10/24 09:36 PFS <DAKOTA Cruz - Last Filed: 04/12/24 21:12> [facility] Disclaimer: The information contained in this section may have been updated after the patient was seen, as this information can be updated by other users. Medical History Seizures Anxiety Ovarian cyst Surgical History History of delivery x2 Family History Mother Tumor of thyroid stated it was found in the uterus Other No significant family history 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 Smoking Status: Current every day smoker tobacco type: cigarettes packs per day: 1 alcohol intake: current alcohol intake frequency: holidays/special occasions only substance use type: denies use current occupational status: unemployed Travel in the last 8 weeks: None household members: family housing: house Have you lived/traveled outside US in past 30 days?: No Contact w/someone who lives/traveled outside US past 30 days?: No Exposure to someone with infectious disease in past 14 days?: No Do you have a fever (greater than 100.4 F or 38 C)?: No Have you tested positive for COVID-19: No Exposed to someone with COVID-19 in past 14 days?: No Do you have a sore throat?: No Do you have a cough?: No Do you have any weakness?: Yes Do you have any diarrhea?: No Are you experiencing any unusual bleeding?: No Do you have any muscle aches/pain?: No Do you have any abdominal pain?: Yes Are you experiencing loss of taste or smell?: No Other Medical History Have you received the Flu Vaccine for this season: No Have you received the Pneumonia Vaccine: No <DAKOTA Cruz - Last Filed: 04/12/24 21:12> ROS Obtained: Yes Systems reviewed as appropriate & no additional complaints except as documented Physical Exam <DAKOTA Cruz - Last Filed: 04/12/24 21:12> General General appearance: alert and in no apparent distress Neck Neck exam: Present lymphadenopathy Respiratory Respiratory exam: Present normal lung sounds bilaterally Cardiovascular Cardiovascular exam: Present regular rate Neurological Exam Neurological exam: Present alert and oriented X3 Medical Decision Making <DAKOTA Cruz - Last Filed: 04/12/24 21:12> Medical Records Medical records reviewed: Yes I reviewed the patient's medical records. Screening: Per USPSTF and CDC recommendations, given the prevalence of disease in our region, it is our hospital?s policy to screen for HIV and viral Hepatitis for all patients aged 18 and over and those with ongoing risk factors. Devan Inquiry Pt receiving controlled substance: No Vital Signs: 04/12/24 19:08 04/12/24 21:21 Temperature 98.5 F 97.9 F Temperature Source Oral Pulse Rate 60 Pulse Rate [Right] 89 Respiratory Rate 18 20 Blood Pressure 115/87 Blood Pressure [Right Arm] 115/87 Blood Pressure Mean [Right Arm] 96 Blood Pressure Position [Right Arm] Sitting 02 Sat by Pulse Oximetry 98 Oxygen Delivery Method Room Air Room Air Lab Data Lab results reviewed: Yes I reviewed the patient's lab results. Lab Results 04/12/24 19:15: Urine Color Other, Urine Appearance Clear, Urine pH 6.0, Ur Specific Schuyler 1.010, Urine Protein Negative, Urine Glucose (UA) Negative, Urine Ketones Negative, Urine Blood 3+ A, Urine Nitrate Negative, Urine Bilirubin Negative, Urine Urobilinogen 0.2, Ur Leukocyte Esterase Trace, Urine RBC 50-100, Urine WBC 3-5, Ur Squamous Epith Cells 3-5, Urine Bacteria Trace, Urine HCG, Qual Negative 04/12/24 19:45: WBC 8.1, RBC 4.41, Hgb 11.5 L, Hct 35.6 L, MCV 80.7 L, MCH 26.1 L, MCHC 32.3, RDW 12.8, Plt Count 260, MPV 10.5 H, Neut % (Auto) 57.7, Lymph % (Auto) 32.9, Doddridge % (Auto) 6.3, Eos % (Auto) 2.5, Baso % (Auto) 0.5, Neut # (Auto) 4.6, Lymph # (Auto) 2.7, Doddridge # (Auto) 0.5, Eos # (Auto) 0.2, Baso # (Auto) 0.0, PT 9.9, INR 0.89 L, Sodium 138, Potassium 3.7, Chloride 105, Carbon Dioxide 28, Anion Gap 8.7, BUN 10, Creatinine 0.70, Estimated Creat Clear 134, Estimated GFR 100, Est GFR ( Amer) 121, Glucose 89, Calcium 8.8, Magnesium 1.8, Total Bilirubin < 0.1 L, AST 21, ALT 17, Alkaline Phosphatase 61, Total Protein 6.4, Albumin 3.8, Globulin 2.6, Albumin/Globulin Ratio 1.5 04/12/24 19:45 04/12/24 19:45 Orders (Tests/Meds): ED MEDICATIONS Discontinued Medications Generic Name Dose Route Start Last Admin Trade Name Freq PRN Reason Stop Dose Admin Iopamidol 75 ml 04/12/24 20:30 04/12/24 20:31 Iopamidol-370 (76%);100ml Bottle IV 04/12/24 20:31 75 ml ONCE ONE Administration Ketorolac Tromethamine 15 mg 04/12/24 20:56 04/12/24 21:01 Ketorolac 30mg/Ml Vial IV 04/12/24 20:57 15 mg ONCE ONE Administration Ondansetron HCl 4 mg 04/12/24 20:56 04/12/24 21:01 Ondansetron 4mg/2ml Vial IV 04/12/24 20:57 4 mg ONCE ONE Administration Sodium Chloride 10 ml 04/12/24 20:30 04/12/24 20:31 Sodium Chloride 0.9% 10ml Syr (Rad Only) IV 05/12/24 20:29 10 ml NEEDED PRN Administration Maintain IV Site ORDERS Category Date Time Status CT abdomen pelvis w con Stat Cat Scan 04/12/24 19:50 Completed CBC w/Auto Diff [Complete Blood Count Auto Diff] Stat Lab 04/12/24 19:45 Completed CMP [Comprehensive Metabolic Panel] Stat Lab 04/12/24 19:45 Completed INR [Prothrombin Time INR] Stat Lab 04/12/24 19:45 Completed Magnesium Stat Lab 04/12/24 19:45 Completed Urinalysis and Microscopic Stat Lab 04/12/24 19:15 Completed Urine , HCG Qual. Stat Lab 04/12/24 19:15 Completed Medical Decision Narrative: In summary patient is a 29-year-old female who presents to the emergency department for evaluation of vaginal bleeding. Patient is hemodynamically stable with blood pressure 150/87 pulse 89 respiratory rate 18 O2 sats 90% on room air upon arrival, temperature is 90.5. Physical exam is remarkable for mild discomfort on palpation in the suprapubic area but no rebound or guarding or rigidity. Bowel sounds normal active.. Differential diagnosis includes dysfunctional uterine bleeding versus first period after delivery versus constipation versus urinary tract infection etc. Initial workup will be conducted with hematologic labs urinalysis CT scan and pelvis. Initial interventions include Toradol and Zofran. Initial workup reviewed by me shows that her hematologic labs are nonactionable and my informal interpretation of her CT scan abdomen pelvis shows a small leiomyoma versus fibroid in the uterine wall but no other acute abnormalities. Patient does have a large stool burden.. Upon repeat evaluation patient had resolution of her abdominal cramping after initial intervention and is tolerating oral intake. Given this patient is appropriate for discharge with 48-hour follow-up with her [employer] for further workup and care of her vaginal bleeding and uterine mass <Wili Dorantes MD - Last Filed: 04/12/24 21:53> Vital Signs: 04/12/24 19:08 04/12/24 21:21 Temperature 98.5 F 97.9 F Temperature Source Oral Pulse Rate 60 Pulse Rate [Right] 89 Respiratory Rate 18 20 Blood Pressure 115/87 Blood Pressure [Right Arm] 115/87 Blood Pressure Mean [Right Arm] 96 Blood Pressure Position [Right Arm] Sitting 02 Sat by Pulse Oximetry 98 Oxygen Delivery Method Room Air Room Air Lab Data Lab Results 04/12/24 19:15: Urine Color Other, Urine Appearance Clear, Urine pH 6.0, Ur Specific Schuyler 1.010, Urine Protein Negative, Urine Glucose (UA) Negative, Urine Ketones Negative, Urine Blood 3+ A, Urine Nitrate Negative, Urine Bilirubin Negative, Urine Urobilinogen 0.2, Ur Leukocyte Esterase Trace, Urine RBC 50-100, Urine WBC 3-5, Ur Squamous Epith Cells 3-5, Urine Bacteria Trace, Urine HCG, Qual Negative 04/12/24 19:45: WBC 8.1, RBC 4.41, Hgb 11.5 L, Hct 35.6 L, MCV 80.7 L, MCH 26.1 L, MCHC 32.3, RDW 12.8, Plt Count 260, MPV 10.5 H, Neut % (Auto) 57.7, Lymph % (Auto) 32.9, Doddridge % (Auto) 6.3, Eos % (Auto) 2.5, Baso % (Auto) 0.5, Neut # (Auto) 4.6, Lymph # (Auto) 2.7, Doddridge # (Auto) 0.5, Eos # (Auto) 0.2, Baso # (Auto) 0.0, PT 9.9, INR 0.89 L, Sodium 138, Potassium 3.7, Chloride 105, Carbon Dioxide 28, Anion Gap 8.7, BUN 10, Creatinine 0.70, Estimated Creat Clear 134, Estimated GFR 100, Est GFR ( Amer) 121, Glucose 89, Calcium 8.8, Magnesium 1.8, Total Bilirubin < 0.1 L, AST 21, ALT 17, Alkaline Phosphatase 61, Total Protein 6.4, Albumin 3.8, Globulin 2.6, Albumin/Globulin Ratio 1.5 Orders (Tests/Meds): ED MEDICATIONS Discontinued Medications Generic Name Dose Route Start Last Admin Trade Name Freq PRN Reason Stop Dose Admin Iopamidol 75 ml 04/12/24 20:30 04/12/24 20:31 Iopamidol-370 (76%);100ml Bottle IV 04/12/24 20:31 75 ml ONCE ONE Administration Ketorolac Tromethamine 15 mg 04/12/24 20:56 04/12/24 21:01 Ketorolac 30mg/Ml Vial IV 04/12/24 20:57 15 mg ONCE ONE Administration Ondansetron HCl 4 mg 04/12/24 20:56 04/12/24 21:01 Ondansetron 4mg/2ml Vial IV 04/12/24 20:57 4 mg ONCE ONE Administration Sodium Chloride 10 ml 04/12/24 20:30 04/12/24 20:31 Sodium Chloride 0.9% 10ml Syr (Rad Only) IV 05/12/24 20:29 10 ml NEEDED PRN Administration Maintain IV Site ORDERS Category Date Time Status CT abdomen pelvis w con Stat Cat Scan 04/12/24 19:50 Completed CBC w/Auto Diff [Complete Blood Count Auto Diff] Stat Lab 04/12/24 19:45 Completed CMP [Comprehensive Metabolic Panel] Stat Lab 04/12/24 19:45 Completed INR [Prothrombin Time INR] Stat Lab 04/12/24 19:45 Completed Magnesium Stat Lab 04/12/24 19:45 Completed Urinalysis and Microscopic Stat Lab 04/12/24 19:15 Completed Urine , HCG Qual. Stat Lab 04/12/24 19:15 Completed Medical Decision Narrative: In summary patient is a 29-year-old female who presents to the emergency department for evaluation of vaginal bleeding. Patient is hemodynamically stable with blood pressure 150/87 pulse 89 respiratory rate 18 O2 sats 90% on room air upon arrival, temperature is 90.5. Physical exam is remarkable for mild discomfort on palpation in the suprapubic area but no rebound or guarding or rigidity. Bowel sounds normal active.. Differential diagnosis includes dysfunctional uterine bleeding versus first period after delivery versus constipation versus urinary tract infection etc. Initial workup will be conducted with hematologic labs urinalysis CT scan and pelvis. Initial interventions include Toradol and Zofran. Initial workup reviewed by me shows that her hematologic labs are nonactionable and my informal interpretation of her CT scan abdomen pelvis shows a small leiomyoma versus fibroid in the uterine wall but no other acute abnormalities. Patient does have a large stool burden.. Upon repeat evaluation patient had resolution of her abdominal cramping after initial intervention and is tolerating oral intake. Given this patient is appropriate for discharge with 48-hour follow-up with her [employer] for further workup and care of her vaginal bleeding and uterine mass I was consulted by the RAY, and we discussed the complexity of the problems being addressed. I approved the treatment and management plan for this patient's care in the Emergency Department, thus performing a substantive portion of the medical decision making. Wili Dorantes MD Critical Care <DAKOTA Cruz - Last Filed: 04/12/24 21:12> Critical Care Time Critical Care Time: No
--- NOTE | 2024-04-12 19:50 | CT_ITS ---
PROCEDURE INFORMATION: Exam: CT Abdomen And Pelvis With Contrast Exam date and time: 04/12/2024 8:26 PM Age: 29 years old Clinical indication: Other: Vaginal bleeding TECHNIQUE: Imaging protocol: Computed tomography of the abdomen and pelvis with contrast. Radiation optimization: All CT scans at this facility use at least one of these dose optimization techniques: automated exposure control; mA and/or kV adjustment per patient size (includes targeted exams where dose is matched to clinical indication); or iterative reconstruction. Contrast material: ISOVUE; Contrast volume: 75 ml; Contrast route: IV; COMPARISON: CT ABDOMEN PELVIS W CON 02/04/2022 6:44 PM FINDINGS: Liver: Normal. No mass. Gallbladder and biliary ducts: Normal. No calcified stones. No ductal dilation. Pancreas: Normal. No ductal dilation. Spleen: Normal. No splenomegaly. Adrenal glands: Normal. No mass. Kidneys and ureters: Normal. No hydronephrosis. Stomach and bowel: Unremarkable. No obstruction. No mucosal thickening. Appendix: No evidence of appendicitis. Intraperitoneal space: Unremarkable. No free air. No significant fluid collection. Vasculature: Unremarkable. No abdominal aortic aneurysm. Lymph nodes: Unremarkable. No enlarged lymph nodes. Urinary bladder: Unremarkable as visualized. Reproductive: Nonspecific hypoenhancing lesion involving the lower uterine wall myometrium measuring 12 mm in diameter may represent cystic fibroid. Bones/joints: Moderate loss of intervertebral disc space with degenerative changes involving L5-S1. Soft tissues: Normal. IMPRESSION: Nonspecific hypoenhancing lesion involving the lower uterine wall myometrium measuring 12 mm in diameter may represent cystic fibroid. Recommend further evaluation with pelvic ultrasound.
[2024-04-12 20:04] LABS: Basophils % 0.5 % (0.1-2.0); Eosinophils # 0.2 K/mm3 (0.0-0.4); Eosinophils % 2.5 % (0.1-12.0); Hematocrit 35.6 % (37.0-47.0); Hemoglobin 11.5 g/dL (12.2-16.2); Lymphocytes # 2.7 K/mm3 (0.7-4.5); Lymphocytes % 32.9 % (10-50); Mean Corpuscular HGB Conc 32.3 g/dL (31.8-35.4); Mean Corpuscular Hemoglobin 26.1 pg (27.0-31.2); Mean Corpuscular Volume 80.7 fl (81-99); Mean Platelet Volume 10.5 fl (7.4-10.4); Monocytes # 0.5 K/mm3 (0.1-1.0); Monocytes % 6.3 % (1.7-9.3); Neutrophils # 4.6 K/mm3 (1.8-7.8); Neutrophils % 57.7 % (37.0-80.0); Platelet Count 260 K/mm3 (142-424); Red Blood Count 4.41 M/mm3 (4.20-5.40); Red Cell Distribution Width 12.8 % (11.5-17.5); White Blood Count 8.1 K/mm3 (4.8-10.8)
[2024-04-12 20:10] LABS: INR 0.89 (0.9-1.1); Prothrombin Time 9.9 seconds (9.2-12.1)
[2024-04-12 20:14] LABS: Chloride 105 mmol/L (98-107)
[2024-04-12 20:15] LABS: Albumin Level 3.8 g/dl (3.5-5.0); Potassium 3.7 mmoL/L (3.5-5.1); Sodium 138 mmol/L (136-145)
[2024-04-12 20:17] LABS: Anion Gap 8.7 mEq/L (5-15); Blood Urea Nitrogen 10 mg/dl (7-17); Carbon Dioxide 28 mmol/L (22.0-30.0); Creatinine Clearance Estimated 134 mL/min (50-200); Estimated Glomerular Filt Rate 100 ml/min (>60); GFR (African American) 121 ML/MIN (>60)
[2024-04-12 20:18] LABS: Alanine Aminotransferase 17 U/L (12-78); Albumin/Globulin Ratio 1.5 (1.1-1.8); Alkaline Phosphatase 61 U/L (38-126); Aspartate Amino Transferase 21 U/L (14-36); Bilirubin,Total < 0.1 mg/dl (0.2-1.3); Calcium 8.8 mg/dl (8.4-10.2); Globulin 2.6 g/dL (1.3-3.2); Glucose 89 mg/dl (74-100); Magnesium 1.8 mg/dl (1.6-2.3); Total Protein,Serum 6.4 g/dl (6.3-8.2)
[2024-04-12] MEDS: SODIUM CHLORIDE 0.9% 10ML SYR (RAD ONLY) 10 ML IV (20:31)
[2024-04-12] MEDS: IOPAMIDOL-370 (76%);100ML BOTTLE 75 ML IV (20:31)
[2024-04-12 20:53] LABS: Bacteria,Urine Trace /lpf; RBC,Urine 50-100 #/hpf (0-3)
[2024-04-12] MEDS: KETOROLAC 30MG/ML VIAL 15 MG IV (21:01)
[2024-04-12] MEDS: ONDANSETRON 4MG/2ML VIAL 4 MG IV (21:01)
[2024-04-12 21:21] VITALS: BP 115/87; PULSE 60; RESP 20; TEMP 36.6; O2SAT 100
== END 2024-04-12 21:23 | disposition home or self-care (01) ==
PROVIDERS: Physician Assistant; Emergency Provider Emergency Medicine; PCP Nurse Practitioner Family
DX: N85.8 Other specified noninflammatory disorders of uterus (principal); R10.30 Lower abdominal pain, unspecified; N93.9 Abnormal uterine and vaginal bleeding, unspecified; R42 Dizziness and giddiness; R11.0 Nausea; F17.210 Nicotine dependence, cigarettes, uncomplicated
CPT/HCPCS: 74177; 80053; 81001; 81025; 83735; 85025; 85610; 96374; 96375; 99285; J1885; J2405; Q9967

== ENCOUNTER 2024-05-15 14:28 | Emergency (ER) | payer MEDICAID, SELFPAY ==
[2024-05-15 14:34] VITALS: BP 121/85; PULSE 87; RESP 18; TEMP 36.6; O2SAT 100; BMI 23.5
[2024-05-15 14:57] LABS: Coronavirus 19, PCR Not Detected (NotDetected); Influenza A, PCR Not Detected (NotDetected); Influenza B, PCR Not Detected (NotDetected)
--- NOTE | 2024-05-15 15:17 | ED_ITS ---
Discharge Plan Disposition Patient Disposition: Home, Self-Care Chief Complaint: Upper Respiratory Infection Prescriptions Prescriptions: No Action ondansetron 4 mg tablet,disintegrating 4 mg PO QID PRN (Reason: nausea and vomiting) Qty: 10 0RF Referrals Follow up/Referrals: Km Navarro APRN [Primary Care Provider] - See instructions Activity Restrictions/Add. Instructions Additional Instructions/Restrictions: Call your family doctor to establish care for this visit to the emergency department and schedule follow-up within 48 hours to ensure improvement. If you have any worsening of your condition or any other concerning signs or symptoms, return to the emergency department or your primary care doctor for further evaluation. Take Tylenol 1000 mg every 6 hours (4 times daily) and ibuprofen 400 mg every 6 hours (4 times daily) as needed with food and water to prevent GI upset and kidney damage. Zofran every 6 hours as needed for nausea and vomiting. Clinical Impressions Clinical Impression: Acute viral syndrome Print Language Print Language: Swedish Discharge ED Provider: Wili Dorantes General Adult HPI General Chief complaint: Upper Respiratory Infection Stated complaint: chest/sinus congestion Time Seen by Provider: 05/15/24 15:03 Mode of Arrival: Ambulatory Source of Information: Patient Description of Symptoms (Recalled from ER Triage Doc. by RN): Pt presents for evaluation of sore throat, cough, headache, congestion in nose/chest x 1 week. Pt requests to be swabbed for flu. History of Present Illness HPI narrative: Please note that above description of symptoms, in this electronic medical record under categorization of recalled from ER triage doctor by RN are reflective of an initial nursing assessment, however, is not reflective of my full history and physical exam that was personally taken and clarified. Consequentially, this preceding description of symptoms, which may include the patient's categorized chief complaint in the EMR, do not reflect my personal clinical impression, and the ultimate description of history of present illness and patient stated complaints should be deferred to this section of the note. Unless stated otherwise or congruent with this section of the note, additional signs, symptoms, or incongruence should be interpreted as inaccurate with my clinical impression. Related Data Previous Rx's ?Medication ?Instructions ?Recorded ondansetron 4 mg disintegrating 4 mg PO QID PRN nausea and 04/12/24 tablet vomiting #10 tabs Allergies Allergy/AdvReac Type Severity Reaction Status Date / Time Penicillins Allergy Severe Swelling Verified 02/02/24 09:36 of Lip/Tongue/Throat amoxicillin Allergy Intermediate Swelling Verified 02/02/24 09:36 of Lip/Tongue/Throat pecan nut Allergy Unknown Anaphylaxis Verified 02/02/24 09:36 red dye Allergy Unknown -- Verified 02/02/24 09:36 brompheniramine Allergy Anaphylaxis Verified 02/02/24 09:36 [facility] Disclaimer: The information contained in this section may have been updated after the patient was seen, as this information can be updated by other users. Medical History Seizures Anxiety Ovarian cyst Surgical History History of delivery x2 Family History Mother Tumor of thyroid stated it was found in the uterus Other No significant family history 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 Smoking Status: Current every day smoker tobacco type: cigarettes packs per day: 1 alcohol intake: current alcohol intake frequency: holidays/special occasions only substance use type: denies use current occupational status: unemployed Travel in the last 8 weeks: None household members: family housing: house Have you lived/traveled outside [place] in past 30 days?: No Contact w/someone who lives/traveled outside US past 30 days?: No Exposure to someone with infectious disease in past 14 days?: No Do you have a fever (greater than 100.4 F or 38 C)?: No Have you tested positive for COVID-19: No Exposed to someone with COVID-19 in past 14 days?: No Do you have a sore throat?: No Do you have a cough?: No Do you have any weakness?: No Do you have any diarrhea?: No Are you experiencing any unusual bleeding?: No Do you have any muscle aches/pain?: No Do you have any abdominal pain?: No Are you experiencing loss of taste or smell?: No Other Medical History Have you received the Flu Vaccine for this season: No Have you received the Pneumonia Vaccine: No ROS Obtained: Yes All systems reviewed & no additional complaints except as documented Physical Exam General General appearance: alert Head Head exam: atraumatic and normocephalic Eye Eye exam: Present normal appearance, PERRL and EOMI Neck Neck exam: Present normal inspection, full ROM and trachea midline Respiratory Respiratory exam: Absent respiratory distress, wheezes, stridor, accessory muscle use or prolonged expiratory phase Cardiovascular Cardiovascular exam: Present other (Pulses equal symmetric in upper and lower extremities) Abdominal Exam Abdominal exam: Present soft; Absent distention, tenderness or pulsatile mass Extremities Exam Extremities exam: Absent edema Neurological Exam Neurological exam: Present alert, oriented X3 and CN II-XII intact; Absent motor sensory deficit Skin Skin exam: Present warm and dry; Absent diaphoresis or erythema Medical Decision Making Medical Records Medical records reviewed: Yes I reviewed the patient's medical records. Screening: Per USPSTF and CDC recommendations, given the prevalence of disease in our region, it is our hospital?s policy to screen for HIV and viral Hepatitis for all patients aged 18 and over and those with ongoing risk factors. Devan Inquiry Pt receiving controlled substance: No Devan was queried for this patient: No Vital Signs: 05/15/24 14:34 Temperature 98 F Temperature Source Oral Pulse Rate [Right] 87 Respiratory Rate 18 Blood Pressure [Right Arm] 121/85 Blood Pressure Mean [Right Arm] 97 Blood Pressure Source [Right Arm] Automatic Cuff Blood Pressure Position [Right Arm] Sitting 02 Sat by Pulse Oximetry 100 Oxygen Delivery Method Room Air Lab Data Lab Results 05/15/24 14:37: SARS-CoV-2 (PCR) Not detected, Influenza A Untype (PCR) Not detected, Influenza Type B (PCR) Not detected Orders (Tests/Meds): ORDERS Category Date Time Status Rapid PCR Covid and Flu A/B Stat Lab 05/15/24 14:37 Completed Medical Decision Narrative: This is a 29-year-old female no relevant medical history presenting with cough. She states that her daughter has had a cough for the past 4 to 5 days, she started to 3 days ago and then her son who is also a patient here right now started late last night. Cough is nonproductive,. No fevers or chills, no systemic signs or symptoms or any other concerning symptoms. States that she did feel nauseated likely due to the amount of nasal drainage, but has not needed to take any Zofran that she already has at home. History was obtained via conversation with patient. On arrival, patient hemodynamically stable, alert, oriented x4, appropriate, GCS 15, moving all extremities spontaneously, pupils equal and reactive to light. Full physical exam performed and significant for: Very clinically well-appearing female no distress sentences oxygenating appropriately, nontachycardic, normotensive. No wheezes, nontachypneic, no respiratory distress and overall unremarkable exam. Differential includes URI, bronchitis, less likely pneumonia, PE, pneumothorax, among others. Patient placed on continuous cardiac monitoring and continuous pulse ox with initial blood pressure 121/85, heart rate 87, saturation 100% on room air. Because patient clinically well-appearing, asymptomatic no interventions were deemed necessary at this time. Viral swab obtained by request by patient. On independent interpretation, negative for covid or flu. Given patient presentation, workup, history, this most likely represents other acute viral syndrome. Because patient at baseline without signs or symptoms of clinical decompensation, deemed appropriate for discharge. Results were relayed to patient who voiced understanding and were agreeable to outpatient management and follow up. I discussed my clinical impression with patient and answered all questions. At this time, the evidence for any other entities in the differential is insufficient to warrant any further testing or ED observation. This was explained as well. Advisory was given that persistent or worsening symptoms require further evaluation. I confirmed the understanding of this discussion. [employer] disclaimer Much of this encounter note is an electronic process description writer spoken language to printed text. Electronic process description writer of the spoken language may permit errors. Although I have reviewed the note, some errors may still exist. Critical Care Critical Care Time Critical Care Time: No
[2024-05-15 15:57] VITALS: BP 124/77; PULSE 81; RESP 18; TEMP 36.7; O2SAT 99
== END 2024-05-15 15:57 | disposition home or self-care (01) ==
PROVIDERS: Student in an Organized Health Care Education/Training Program; Emergency Provider Emergency Medicine; PCP Nurse Practitioner Family
DX: B34.9 Viral infection, unspecified (principal); R51.9 Headache, unspecified; R05.9 Cough, unspecified; J02.9 Acute pharyngitis, unspecified; R09.81 Nasal congestion; F17.210 Nicotine dependence, cigarettes, uncomplicated
CPT/HCPCS: 87636; 99283

== ENCOUNTER 2024-07-11 10:41 | Outpatient (CLI) | payer MEDICAID, SELFPAY ==
[2024-07-11 11:59] LABS: HCG,Quantitative < 2 mIU/ml (0-5.42)
== END 2024-07-11 23:59 | disposition home or self-care (01) ==
LOC: LAB 10:41
PROVIDERS: PCP Nurse Practitioner Family; Visit Provider Obstetrics & Gynecology
DX: Z32.02 Encounter for pregnancy test, result negative (principal)
CPT/HCPCS: 36415; 84702

== ENCOUNTER 2024-09-10 23:19 | Emergency (ER) | payer MEDICAID, SELFPAY ==
[2024-09-10 23:26] VITALS: BP 125/84; PULSE 84; RESP 18; TEMP 36.6; O2SAT 100; BMI 23.3
--- NOTE | 2024-09-10 23:27 | ED_ITS ---
Discharge Plan Disposition Patient Disposition: Home, Self-Care Prescriptions Prescriptions: No Action ondansetron 4 mg tablet,disintegrating 4 mg PO QID PRN (Reason: nausea and vomiting) Qty: 10 0RF Referrals Follow up/Referrals: Km Navarro APRN [Primary Care Provider, Family Practice] - See instructions Activity Restrictions/Add. Instructions Additional Instructions/Restrictions: Please follow-up with your primary care provider. Please return to the emergency department if you develop any new or worsening symptoms or become concerned for your health. Clinical Impressions Clinical Impression: Abdominal pain Instructions Patient Instructions: DI for Acute Abdominal Pain Print Language Print Language: Finnish Discharge ED Provider: Miki Zee General Adult HPI General Chief complaint: Abdominal Pain Stated complaint: abd pain, nausea, dizziness Time Seen by Provider: 09/10/24 23:23 History of Present Illness HPI narrative: 29-year-old female without significant past medical history presents for abdominal pain. She reports that she was changing her 4-month-old when the child kicked her in the abdomen. The child kicked her right where her scar is from her about 6 months ago. She also had a bilateral salpingectomy at that time. She reports that immediately after being kicked she doubled over in pain, was nauseous and dizzy. She is still having some pain now. She denies any recent fever or illness. Reports her last menstrual period was 2 weeks ago. Related Data Previous Rx's ?Medication ?Instructions ?Recorded ondansetron 4 mg disintegrating 4 mg PO QID PRN nausea and 04/12/24 tablet vomiting #10 tabs Allergies Allergy/AdvReac Type Severity Reaction Status Date / Time Penicillins Allergy Severe Swelling Verified 02/02/24 09:36 of Lip/Tongue/Throat amoxicillin Allergy Intermediate Swelling Verified 02/02/24 09:36 of Lip/Tongue/Throat pecan nut Allergy Unknown Anaphylaxis Verified 02/02/24 09:36 red dye Allergy Unknown -- Verified 02/02/24 09:36 brompheniramine Allergy Anaphylaxis Verified 02/02/24 09:36 [facility] Disclaimer: The information contained in this section may have been updated after the patient was seen, as this information can be updated by other users. Medical History Seizures Anxiety Ovarian cyst Surgical History History of delivery x2 Family History Mother Tumor of thyroid stated it was found in the uterus Other No significant family history 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 Smoking Status: Never smoker alcohol intake: current alcohol intake frequency: holidays/special occasions only substance use type: denies use current occupational status: unemployed Travel in the last 8 weeks?: None household members: family housing: house Have you lived/traveled outside US in past 30 days?: No Contact w/someone who lives/traveled outside [place] past 30 days?: No Exposure to someone with infectious disease in past 14 days?: No Do you have a fever (greater than 100.4 F or 38 C)?: No Have you tested positive for COVID-19?: No Exposed to someone with COVID-19 in past 14 days?: No Do you have a sore throat?: No Do you have a cough?: No Do you have any weakness?: Yes Do you have any diarrhea?: No Are you experiencing any unusual bleeding?: No Do you have any muscle aches/pain?: No Do you have any abdominal pain?: Yes Are you experiencing loss of taste or smell?: No Other Medical History Have you received the Flu Vaccine for this season: No Have you received the Pneumonia Vaccine: No ROS Obtained: Yes All systems reviewed & no additional complaints except as documented Physical Exam General General appearance: alert Comment: Uncomfortable appearing Head Head exam: atraumatic and normocephalic Eye Eye exam: Present normal appearance, PERRL and EOMI ENT ENT exam: Present normal oropharynx and normal external ear exam Neck Neck exam: Present normal inspection and full ROM Chest Chest inspection: Present normal inspection and symmetric chest wall rise; Absent tenderness Respiratory Respiratory exam: Present normal lung sounds bilaterally; Absent respiratory distress Cardiovascular Cardiovascular exam: Present regular rate and normal rhythm Abdominal Exam Abdominal exam: Present soft and tenderness (Generalized, worse over the lower abdomen); Absent distention or guarding Extremities Exam Extremities exam: Present normal inspection; Absent edema or joint swelling Back Exam Back exam: Present normal inspection; Absent tenderness Neurological Exam Neurological exam: Present alert and oriented X3; Absent motor sensory deficit Psychiatric Psychiatric exam: Present normal affect and normal mood Skin Skin exam: Present warm, dry and normal color Lymphatic Lymphatic Findings: no adenopathy Medical Decision Making Medical Records Medical records reviewed: Yes I reviewed the patient's medical records. Screening: Per USPSTF and CDC recommendations, given the prevalence of disease in our region, it is our hospital?s policy to screen for HIV and viral Hepatitis for all patients aged 18 and over and those with ongoing risk factors. Devan Inquiry Pt receiving controlled substance: No Devan was queried for this patient: No Vital Signs: 09/10/24 23:26 09/11/24 00:05 09/11/24 00:31 Temperature 98 F Temperature Source Temporal Artery Scan Pulse Rate 61 61 Pulse Rate [Right] 84 Respiratory Rate 18 Blood Pressure 109/72 L 106/67 L Blood Pressure [Right Arm] 125/84 Blood Pressure Mean 82 75 Blood Pressure Mean [Right Arm] 97 Blood Pressure Source Blood Pressure Source [Right Arm] Automatic Cuff Blood Pressure Position Blood Pressure Position [Right Arm] Sitting 02 Sat by Pulse Oximetry 100 99 98 Oxygen Delivery Method 09/11/24 00:38 Temperature 98.2 F Temperature Source Oral Pulse Rate 69 Pulse Rate [Right] Respiratory Rate 17 Blood Pressure 116/71 Blood Pressure [Right Arm] Blood Pressure Mean Blood Pressure Mean [Right Arm] Blood Pressure Source Automatic Cuff Blood Pressure Source [Right Arm] Blood Pressure Position Sitting Blood Pressure Position [Right Arm] 02 Sat by Pulse Oximetry Oxygen Delivery Method Room Air Lab Data Lab results reviewed: Yes I reviewed the patient's lab results. Lab Results 09/10/24 23:55: Urine Color Yellow, Urine Appearance Slightly cloudy, Urine pH 6.0, Ur Specific [place] 1.020, Urine Protein Negative, Urine Glucose (UA) Negative, Urine Ketones Negative, Urine Blood Negative, Urine Nitrate Negative, Urine Bilirubin Negative, Urine Urobilinogen 0.2, Ur Leukocyte Esterase Negative, Urine RBC 5-10, Urine WBC 5-10, Ur Squamous Epith Cells 50-100, Urine Bacteria 4+ Orders (Tests/Meds): ED MEDICATIONS Discontinued Medications Generic Name Dose Route Start Last Admin Trade Name Freq PRN Reason Stop Dose Admin Acetaminophen 1,000 mg 09/10/24 23:44 09/10/24 23:55 Acetaminophen 500mg Tab PO 09/10/24 23:45 Not Given ONCE ONE Ibuprofen 800 mg 09/10/24 23:50 09/10/24 23:54 Ibuprofen 600 Mg Tablet PO 09/10/24 23:51 800 mg ONCE ONE Administration Ibuprofen 800 mg 09/10/24 23:51 09/10/24 23:55 Ibuprofen 800 Mg Tablet PO 09/10/24 23:52 Not Given ONCE ONE Ketorolac Tromethamine 30 mg 09/10/24 23:44 09/10/24 23:49 Ketorolac 30mg/Ml Vial IV 09/10/24 23:45 Not Given ONCE ONE Lidocaine 1 each 09/11/24 00:29 09/11/24 00:31 Lidocaine 5% Transdermal Patch TD 09/11/24 00:30 1 each ONCE ONE Administration Promethazine HCl 25 mg 09/10/24 23:44 09/10/24 23:49 Promethazine Hcl 25mg/Ml 1ml Vial IM 09/10/24 23:45 Not Given ONCE ONE Sodium Chloride 25 ml 09/10/24 23:44 09/10/24 23:50 Sodium Chloride 0.9% 25ml Bag IV 09/10/24 23:45 Not Given ONCE ONE ORDERS Category Date Time Status UA [Urinalysis and Microscopic] Stat Lab 09/10/24 23:55 Completed Urine Culture Stat Micro 09/10/24 23:55 Received Medical Decision Narrative: 29-year-old female presents for abdominal pain after getting kicked in her C- section scar by her 4-month-old while she was changing her diaper. History was obtained via interactive discussion with patient, family, chart review. On arrival, patient is [afebrile, hemodynamically stable, satting appropriately, alert, oriented x4, GCS 15], moving all extremities spontaneously. Full physical exam performed and significant for mild generalized abdominal pain. I have low concern for other emergent pathology such as bowel rupture, ovarian torsion, appendicitis, UTI etc. given the circumstances surrounding the initiation of her pain and the low mechanism of injury. Could be hyperalgesia at the site of her scar. Patient has benign exam at this time. Patient was offered medications but refused most of them. On reassessment about an hour later, patient was sleeping and reports that her pain is improving. Unsure exactly what happened, but low concern for emergent pathology at this time. Patient discharged in stable condition with a lidocaine patch. Return precautions given. Procedures Risk/Benefits of Procedure(s) Were Explained: Yes Critical Care Critical Care Time Critical Care Time: No
--- OUTSIDE RECORDS SUMMARY | 2024-09-10 23:30 | XMS_ITS | Clinical Summary ---
Author Organization [facility] Address [address] [place] [address] Care Team Providers Care Motion Graphics Designer Name Role Phone Lucio Owen MD Primary Care Provider [phone] Allergies Active Allergy Reactions Criticality Noted Date Comments Nitrofurantoin Anaphylaxis High 06/04/2023 Pecan Nut (Diagnostic) Anaphylaxis High 05/05/2023 Penicillins Anaphylaxis High 05/05/2023 Red Dye #40 (Allura Red) Hives Medium 05/05/2023 Medications MV-Min-Fe Fum-FA-DHA ( 1 PO) Take by mouth. Active Active Problems Problem Noted Date Diagnosed Date Episode of heavy vaginal bleeding 04/15/2024 History of seizures 10/08/2023 Assessment & Plan (01/18/2024 12:51 PM EST): Distant seizure history. No seizures in years. None during previous pregnancies. No meds. Assessment & Plan (01/02/2024 5:37 PM EST): Distant seizure history. No seizures in years. None during previous pregnancies. No meds. Assessment & Plan (12/20/2023 11:32 AM EDT): Distant seizure history. No seizures in years. None during previous pregnancies. No meds. Assessment & Plan (11/11/2023 9:06 PM EDT): Distant seizure history. No seizures in years. None during previous pregnancies. No meds. Mass of right breast 06/24/2023 Assessment & Plan (06/24/2023 4:22 PM EDT): - Firm, mobile 1 cm mass palpated in R breast at 2-3 o'clock. No surrounding erythema or edema on physical exam. - Differential diagnosis is broad and includes fibroadenoma, breast cyst, or mammary duct pathology. Though less likely, malignancy cannot be definitively excluded. - Obtain US of R breast Resolved Problems Problem Noted Date Diagnosed Date Resolved Date COVID-19 affecting in third trimester 01/12/2024 04/15/2024 Assessment & Plan (01/18/2024 12:50 PM EST): COVID+ on 01/04 with children positive at home. Symptomatic with fevers/chills, myalgias. S/p Paxlovid x7 day course with symptom resolution. Discussed rec for ASA 81 - pt feels strange when taking ASA and declines. Reviewed recommendation for NSTs prior to delivery due to risk of stillbirth/placental insufficiency. NST reactive today. Assessment & Plan (01/12/2024 6:36 PM EST): COVID+ on 01/04 with children positive at home. Symptomatic with fevers/chills, myalgias. S/p Paxlovid x7 day course with symptom resolution. Discussed rec for ASA 81 - pt feels strange when taking ASA and declines. Reviewed recommendation for NSTs prior to delivery due to risk of stillbirth/placental insufficiency. Plan for NST this week Th01/13 & Mon 01/17 prior to delivery 01/18. Decreased movements in third trimester 04/15/2024 Assessment & Plan (01/02/2024 5:37 PM EST): Seen in hospital last night for decreased movements. NST reactive, and movement returns during visit. This morning again has decreased movements, although now feeling 10+ while on the monitor. Reviewed expectations for movement in 3rd trimester. Discussed kick counts and using ice water, juice, movement or rest to help make baby move. NST today reactive. Pain of pelvic girdle 11/11/20232024 Assessment & Plan (01/18/2024 12:51 PM EST): Throughout 3T, constant pelvic pressure worse with movement. Prior exam c/w SI joint pain / MSK. Seen as OBE at 28w for pelvic pressure, r/o PTL. Improved with flexeril. Persistent pelvic and pubic area pressure significant when walking most consistent with pelvic girdle pain. Encouraged support belt, pelvic girdle usage, Tylenol, Flexeril. Last visit UA/Culture negative for infection. Seen again on L&D at 35 weeks for persistent pain. 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 Given flexeril with improvement & advised on pelvic girdle support. Assessment & Plan (01/12/2024 6:33 PM EST): Throughout 3T, constant pelvic pressure worse with movement. Prior exam c/w SI joint pain / MSK. Seen as OBE at 28w for pelvic pressure, r/o PTL. Improved with flexeril. Persistent pelvic and pubic area pressure significant when walking most consistent with pelvic girdle pain. Encouraged support belt, pelvic girdle usage, Tylenol, Flexeril. Last visit UA/Culture negative for infection. Seen again on L&D at 35 weeks for persistent pain. 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 Given flexeril with improvement & advised on pelvic girdle support. Persistent today, but manageable. Assessment & Plan (01/02/2024 5:35 PM EST): Throughout 3T, constant pelvic pressure worse with movement. Prior exam c/w SI joint pain / MSK. Seen as OBE at 28w for pelvic pressure, r/o PTL. Improved with flexeril. Persistent pelvic and pubic area pressure significant when walking most consistent with pelvic girdle pain. Encouraged support belt, pelvic girdle usage, Tylenol, Flexeril. Last visit UA/Culture negative for infection. UA today again negative. Assessment & Plan (12/20/2023 11:32 AM EDT): Throughout 3T, constant pelvic pressure worse with movement. Prior exam c/w SI joint pain / MSK. Seen as OBE 2 weeks ago for pelvic pressure, r/o PTL. Improved with flexeril. Last visit UA/Culture negative for infection. Assessment & Plan (11/11/2023 9:07 PM EDT): Exam & history c/w SI joint & pelvic girdle pain. Encouraged support belt. Dehydration likely contributing to lightheadedness: encouraged PO hydration. However, given lower back pain & UA with blood/leuks today, will r/o cystitis with culture. 38 weeks gestation of 09/07/2023 04/15/2024 Assessment & Plan (01/18/2024 12:50 PM EST): Rh Positive, Rubella equivocal. Otherwise PNL normal. Glucola 120. Dated by LMP c/w 6w US. Anatomy US WNL. Growth US @ 32w WNL. Immunizations: declines tdap, Flu, RSV vaccines. GBS POSITIVE. Has PCN anaphylaxis allergy -- clindamycin resistant. Would need vancomycin if prolonged laboring or SROM. H/o CS x2. Plan for repeat CS with BTL. KMA signed 11/10 and re-signed 12/16 & uploaded to Media tab. Scheduled RCS + BTL on 01/18. Given h/o CS x2 & persistent uterine contractions, will deliver at 38w6d. Consent obtained for section with bilateral tubal ligation vs bilateral salpingectomy. Risks, benefits, alternatives discussed, and patient expressed understanding. Written consent signed today. Plan for gentamicin + clindamycin for surgical PPX. Assessment & Plan (01/12/2024 6:32 PM EST): Rh Positive, Rubella equivocal. Otherwise PNL normal. Glucola 120. Dated by LMP c/w 6w US. Anatomy US WNL. Growth US @ 32w WNL. Immunizations: declines tdap, Flu, RSV vaccines. GBS POSITIVE. Has PCN anaphylaxis allergy -- clindamycin resistant. Would need vancomycin if prolonged laboring or SROM. H/o CS x2. Plan for repeat CS with BTL. KMA signed 11/10 and re-signed 12/16 & uploaded to Media tab. Scheduled RCS + BTL on 01/18. Assessment & Plan (01/02/2024 5:34 PM EST): Rh Positive, Rubella equivocal. Otherwise PNL normal. Glucola 120. Dated by LMP c/w 6w US. Anatomy US WNL. Growth US @32w WNL. Immunizations: declines tdap, Flu, RSV vaccines. GBS done today. Has PCN anaphylaxis allergy -- requested clinda testing H/o CS x2. Plan for repeat CS with BTL. JOSE signed 11/10 but not located in chart - re-signed 12/16 & uploaded to Media tab. Scheduled RCS + BTL on 01/18. Assessment & Plan (12/20/2023 11:29 AM EDT): Rh Positive, Rubella equivocal. Otherwise PNL normal. Glucola 120. Dated by LMP c/w 6w US. Anatomy US WNL. Growth US scheduled 12/02. Immunizations: declines tdap, Flu, RSV vaccines. GBS/CBC at 36w. Has PCN anaphylaxis allergy. H/o CS x2. Plan for repeat CS with BTL. JOSE signed 11/10 but not located in chart - re-signed today 12/16 & uploaded to Media tab. Discussed scheduling for >39w0d - would prefer to be delivered prior to (39w0d on 01/19 - no CS scheduling availability on Thu). Discuss Mon 01/25 (39w5d) as alternative date next visit. Assessment & Plan (11/11/2023 9:07 PM EDT): Rh Positive, Rubella equivocal. Otherwise PNL normal. Glucola 120. Dated by LMP c/w 6w US. Anatomy US WNL. Growth US scheduled 12/02. Immunizations: considering tdap, Flu, RSV. GBS/CBC at 36w. Has PCN anaphylaxis allergy. H/o CS x2. Plan for repeat CS with BTL. JOSE signed today 11/10. 15 weeks gestation of 07/13/2023 09/07/2023 Assessment & Plan (07/13/2023 1:48 PM EDT): - labs today - normal NT today, NIPT pending - continue PNV - discussed trying dairy free milk like oat or almond milk - desires permanent sterilization - sign KMA at 28 weeks - delivery plan - R C/S and BTL - reba US ordered - RTC 4 weeks History of delivery, antepartum 07/13/2023 04/15/2024 Assessment & Plan (01/18/2024 12:51 PM EST): H/o CS x2 Desires repeat CS & sterilization for delivery. Plan Repeat LTCS + bilateral salpingectomy vs tubal ligation 01/18. Assessment & Plan (01/12/2024 6:34 PM EST): H/o CS x2 Desires repeat CS & sterilization for delivery. Plan Repeat LTCS + bilateral salpingectomy vs tubal ligation 01/18. Supervision of other normal , antepartum 06/10/2023 11/19/2023 Assessment & Plan (07/09/2023 9:02 AM EDT): - viable SIUP today, CRL c/w previous EUGENE - precautions discussed - has IVF scheduled tomorrow - RTC 1 week for NT US and labs. Assessment & Plan (06/24/2023 4:20 PM EDT): - Zofran for persistent nausea ordered - Patient encouraged to continue taking vitamins. Methods to reduce nausea were discussed including starting Zofran, taking vitamins with food, and trying OTC gummy forms of vitamins. - labs at next visit (internet down at initial visit) - Pap - US shows SIUP with CRL c/w LMP, keep EUGENE 01/27/24 - RTC for appointment Assessment & Plan (06/10/2023 2:13 PM EDT): - labs at next visit - (internet down today) - pap - US shows SIUP with CRL c/w LMP, keep EUGENE 01/27/24 - new OB backpack given - desires genetic screening - FTS US ordered, desires NIPT - RTC 4 weeks Family History Medical History Relation Name Comments Gilbert's disease Father Anxiety disorder Mother Arthritis Mother Conversions - Other Mother Prolapsi ng Mitral Valve Leaflet Syndrome Depression Mother Seizures Mother No Known Problems Sister Relation Name Status Comments Daughter Alive Father Alive Mother Alive Sister Alive 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 Tobacco Use Types Packs/Day Years Used Date Smoking Tobacco: Every Day Smokeless Tobacco: Never Tobacco Cessation:Ready to Q uit: Not Asked; Counseling Given: Not Answered Alcohol Use Standard Drinks/Week Comments Never 0 (1 standard drink = 0.6 oz pur e alcohol) PHQ-2 Answer Date Recorded Patient Health Questionnaire-2 Score 0 04/14/2024 [place] Depression Scale Answer Date Recorded [place] Depression Scale Total 4 02/01/2024 The thought of harming myself has occurred to me . Never 02/01/2024 Comments No Sex and Gender Information Value Date Recorded Sex Assigned at Not on file Legal Sex Female 6:03 PM EDT Gender Identity Not on file Sexual Orientation Not on file Last Filed Vital Signs Vital Sign Reading Time Taken Comments Blood Pressure 116/84 04/14/2024 11:29 AM EST Pulse 77 04/14/2024 11:29 AM EST Temperature 36.3 C (97.4 F) 04/14/2024 11:29 AM EST Respiratory Rate 16 11/19/2023 9:33 AM EDT Oxygen Saturation 98% 04/14/2024 11:29 AM EST Inhaled Oxygen Concentration - - Weight 68.1 kg (150 lb 2.1 oz) 04/14/2024 11:29 AM EST Height 170.2 cm (5' 7 ) 02/01/2024 11:53 AM EST Body Mass Index 23.51 02/01/2024 11:53 AM EST Plan of Treatment Health Maintenance Due Date Last Done Comments [facility]-Infant/Child/Adol SDOH Screenings 1997 [facility]- SDOH Screenings 2015 [facility]-Adult SDOH Screenings 2015 [facility]-Pneumococcal Vaccine: Pediatrics (0 to 5 Years) and At-Risk Patients (6 to 49 Years) (1 of 2 - PCV) 2016 06/23/2000 [facility]-Pap Smear 2018 [facility]-DTaP,Tdap,and Td Vaccines (7 - Td or Tdap) 05/05/2018 05/05/2008, 01/07/2002, 06/20/1998, Additional history exists DQI-EPZXU-16 Vaccine ( season) 2023 [facility]-Influenza Vaccine (#1) 2024 01/27/2011 [facility]-Depression Screening 04/14/2025 04/14/2024, 10/2023 [facility]-Zoster Vaccines (1 of 2) 2047 11/09/2012, 03/06/1998 [facility]-HIB Vaccines Completed 03/06/1998, 01/1999, 1997, Additional history exists [facility]-Hepatitis B Vaccines Completed 999, 03/06/1998, 1997, Additional history exists [facility]-IPV Vaccines Completed 04/06/2001, 01/1999, 1997, Additional history exists HPV Vaccines Completed 11/09/2012, 02/2010, 07/06/2008, Additional history exists [facility]-Varicella Vaccines Completed 11/09/2012, 1998 [facility]-HIV Screening Completed 07/13/2023 [facility]-Hepatitis C Screening Completed 07/13/2023 [facility]-Hepatitis A Vaccines Aged Out No longer eligible based on patient's age to complete this topic [facility]-Rotavirus Vaccines Aged Out No lo nger eligible based on patient's age to complete this topic Goals Goal Patient Goal Type Associated Problems Recent Progress Patient-Stated? Author Delayed Delivery Care Plan CPM S22 PP LABOR (OBSTETRICS) No Open Scheduling, Background Procedures Procedure Name Priority Date/Time Associated Diagnosis Comments HEPATITIS C ANTIBODY W/REFLEX TO HCV QUANT PCR Routine 07/13/2023 1:24 PM EDT 11 weeks gestation of HIV 1/2 ANTIBODY/ANTIGEN SCREEN WITH REFLEX TO HIV I/II DIFFERENTIATION Routine 07/13/2023 1:24 PM EDT 11 weeks gestation of from Last 3 Months or Most Recently Relevant to Health Maintenance Results * HIV 1 & 2 Antibody/Antigen Screen (07/13/2023 1:24 PM EDT) HIV 1 & 2 Antibody/Antigen Screen Non Reactive Non Reactive 07/13/2023 7:31 PM EDT [facility] Comment:Screening for HIV 1 & 2 antibodies, and P24 antigen is NONREACTIVE. No confirmatory testing is required. Blood Venous blood specimen / Unknown Venipuncture / Unknown 07/13/2023 1:24 PM EDT 07/13/2023 6:00 PM EDT Anayeli Duran MD LAB BLOOD ORDERABLES Fin al Result Performing Organization Address City/[facility] Co de Phone Number [facility] [address] [place] [address] * Hepatitis C Antibody (07/13/2023 1:24 PM EDT) [facility] Signature Hepatitis C Antibody Negative Negative 07/13/2023 8:05 PM EDT LAB Blood Venous blood specimen / Unknown Venipuncture / Unknown 07/13/2023 1:24 PM EDT 07/13/2023 6:00 PM EDT Anayeli Duran MD LAB BLOOD ORDERABLES Fin al Result Performing Organization Address [facility] de Phone Number [facility]ARE [facility] [address] [place] [address] from Last 3 Months or Most Recently Relevant to Health Maintenance Additional Health Concerns Active Problems Noted Date Diagnosed Date CPM S22 PP LABOR (OBSTETRICS) 06/22/2023 Insurance [facility] MEDICAID Care Teams Motion Graphics Designer Relationship Specialty Start Date End Date Lucio Owen MD [address] [place] [address] [place] [address] [facility] - General 07/06/20
--- OUTSIDE RECORDS SUMMARY | 2024-09-10 23:30 | XMS_ITS | Clinical Summary ---
Author Organization [facility] Primary Care Address [address] [place] [address] Phone Care Team Providers Care Soft Boarder Name Role Phone Unavailable Primary Care Provider Unavailabl e Allergies No known active allergies Medications folic acid (FOLVITE) 1 mg tablet Take by mouth daily. Active ibuprofen (ADVIL;MOTRIN) 400 mg tabletIndication s:Menstrual cramps Take 1 Tab by mouth every 8 hours as needed for Pain. 90 Tab 3 03/19/2011 Active divalproex (DEPAKOTE ER) 500 mg [id number]: Seizure disorder (HCC),Mood disorder Take 1 Tab by mouth nightly. 30 Tab 2 09/03/2011 Active Active Problems Problem Noted Date Diagnosed Date Mood disorder 04/29/2011 ADHD (attention deficit hyperactivity disorder) 02/03/2011 Seizure disorder Immunizations Immunization Administration Dates Next Due DTaP 01/07/2002, 9,1997,1997,1997 HPV Quadrivalent 03/26/2010,07/06/2008, 9 Hepatitis B, Unspecified Formulation 03/06/1998, 1997,1997 HiB, Unspecified Formulation 03/06/1998,07/04/18 98,1997 IPV 03/27/2001, 9,1997,1997 MMR 04/06/2001,06/20/1998 Tdap 05/05/2008 Varicella 03/06/1998 Medical History Medical History Date Comments Seizure disorder (HCC) Seizures (HCC) Bed bug bite states fighting bedbugs. ADHD (attention deficit hyperactivity disorder) 02/03/2011 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 Tobacco Use Types Packs/Day Years Used Date Smoking Tobacco: Never Cigarettes Smokeless Tobacco: Never Alcohol Use Standard Drinks/Week Comments No 0 (1 standard drink = 0.6 oz pur e alcohol) Comments No Sex and Gender Information Value Date Recorded Sex Assigned at Not on file Legal Sex Female 9:03 AM EDT Gender Identity Not on file Sexual Orientation Not on file Obstetrics History Last Filed Vital Signs Vital Sign Reading Time Taken Comments Blood Pressure 100/58 02/05/2011 5:17 PM EST Pulse 73 02/05/2011 5:17 PM EST Temperature 36.3 C (97.4 F) 05/05/2011 11:03 AM EDT Respiratory Rate 18 02/05/2011 5:17 PM EST Oxygen Saturation 100% 02/05/2011 5:17 PM EST Inhaled Oxygen Concentration - - Weight 51.3 kg (113 lb) 05/05/2011 11:03 AM EDT Height 167.6 cm (5' 6 ) 05/05/2011 11:03 AM EDT Body Mass Index 18.24 05/05/2011 11:03 AM EDT Plan of Treatment Health Maintenance Due Date Last Done Comments Annual Wellness Exam 2000 DTaP/TDaP/Td (7 - Td or Tdap) 05/05/2018 05/05/2008, 01/07/2002, 03/06/1998, Additional history exists COVID-19 Vaccine (2023- season) 2023 Influenza Vaccine (#1) 2024 05/12/2014 (Declin ed) Hepatitis B Vaccine Completed 03/06/1998, 1997, 1997 Meningococcal B Vaccine Aged Out No l onger eligible based on patient's age to complete this topic Pneumococcal Vaccine 0-49 Aged Out No longer eligible based on patient's age to complete this topic
--- OUTSIDE RECORDS SUMMARY | 2024-09-10 23:30 | XMS_ITS | Encounter Summary ---
Author Organization Healthcare Address [address] [place] [address] Care Team Providers Care Home Agent Name Role Phone Lucio Owen MD Primary Care Provider [phone] Encounter Details Date Type Department Care Team ([facility] st Contact Info) Description 07/03/2023 Outside Procedure External Location [address] [place] [address] Deshawn Duran MD [address] [place] [address] 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 Tobacco Use Types Packs/Day Years Used Date Smoking Tobacco: Every Day PHQ-2 Answer Date Recorded Patient Health Questionnaire-2 Score 0 06/24/2023 Comments Yes Sex and Gender Information Value Date Recorded Sex Assigned at Not on file Legal Sex Female 6:03 PM EDT Gender Identity Not on file Sexual Orientation Not on file documented as of this encounter Plan of Treatment Not on file documented as of this encounter Goals Goal Patient Goal Type Associated Problems Recent Progress Patient-Stated? Author Delayed Delivery Care Plan CPM S22 PP LABOR (OBSTETRICS) No Open Scheduling, Background documented as of this encounter Procedures Procedure Name Priority Date/Time Associated Diagnosis Comments US BREAST LIMITED RIGHT 07/03/2023 2:49 PM EDT documented in this encounter Results * US Breast Limited Right (07/03/2023 2:49 PM EDT) Anatomical Region Laterality Modality Breast Right Ultrasound 07/03/2023 2:49 PM EDT Narrative 07/03/2023 3:41 PM EDT [facility] [address] [place] [address] Name: QUIANA ALTAMIRANO Exam Date: 07/03/2023 : 1995 Age 28 years Gender: F Physician: DESHAWN DURAN Facility: [facility] Facility HSV: Outpatient Exam: US BREAST LTD RT RIGHT BREAST ULTRASOUND HISTORY: Palpable abnormality . Reported history 10 week . FINDINGS: Questionable 1.1 x 0.6 cm superficial hypoechoic focus at the 4:00 axis of the right breast. IMPRESSION: Questionable 1.1 x 0.6 cm superficial hypoechoic focus at the 4:00 axis of the right breast is probably benign. BI-RADS 3: Probably benign finding RECOMMENDATION: Follow-up right breast ultrasound in 3 months Dictated By: Henry Cook Transcribed By: Henry Whitehead Transcribed On: 07/03/2023 3:29 PM Electronically signed by: Henry Cook 07/03/2023 Thank you for referring QUIANA ALTAMIRANO to [facility]. Legally authenticated by MANISH MORRISON 2023-07-03 15:29:11 Procedure Note Provider, Generic [facility] - 07/03/2023 [place] [address] Name: QUIANA ALTAMIRANO Exam Date: 07/03/2023 : 1995 Age 28 years Gender: F Physician: DESHAWN DURAN Facility: [facility] Facility HSV: Outpatient Exam: US BREAST LTD RT RIGHT BREAST ULTRASOUND HISTORY: Palpable abnormality . Reported history 10 week . FINDINGS: Questionable 1.1 x 0.6 cm superficial hypoechoic focus at the4:00 axis of the right breast. IMPRESSION: Questionable 1.1 x 0.6 cm superficial hypoechoic focus at the4:00 axis of the right breast is probably benign. BI-RADS 3: Probably benign finding RECOMMENDATION: Follow-up right breast ultrasound in 3 months Dictated By: Henry Cook Transcribed By: Henry Whitehead Transcribed On: 07/03/2023 3:29 PM Electronically signed by: Henry Cook 07/03/2023 Thank you for referring QUIANA ALTAMIRANO to [facility]. Legally authenticated by MANISH MORRISON 2023-07-03 15:29:11 us Deshawn Duran MD IMG BI PROCEDURES Final Result documented in this encounter Visit Diagnoses Not on filedocumented in this encounter Additional Health Concerns Active Problems Noted Date Diagnosed Date CPM S22 PP LABOR (OBSTETRICS) 06/22/2023 Infection Onset Date Last Indicated Resolved Time COVID-19 Rule-Out 09/26/2023 09/26/2023 09/26/2023 9:26 PM EDT Assessment Noted Time A fall risk assessment has been complete d for the patient 06/24/2023 3:37 PM EDT A Body Mass Index follow-up plan has been documented for the patient 06/24/2023 4:28 PM EDT documented as of this encounter Care Teams Home Agent Relationship Specialty Start Date End Date Lucio Owen MD [address] [place] [address] PCP - General 07/06/20 documented as of this encounter
--- OUTSIDE RECORDS SUMMARY | 2024-09-10 23:30 | XMS_ITS | Clinical Summary ---
Author Organization [facility] Address [address] [place] [address] Phone Care Team Providers Care Support Assistant Name Role Phone Unavailable Unavailable Conditions or Problems Problem Name Problem Code Onset Date Status Entry Date Provider Comment Standard Description Annotate ASTHMA [id number] (SNOMED CT) Active Kamille Coreas Asthma Medications Medication Instructions Start Date Stop Date Generic Name GAC Provider VENTOLIN HFA 108 (90 Base) MCG/ACT AERS TAKE 2 INHALATIONS EVERY 4 HOURS NEEDED FOR WHEEZING 5 ALBUTEROL SULFATE [id number] Kamille Coreas FOLIC ACID 5 FOLIC ACID Kamille Coreas DEPAKOTE 5 DEPAKOTE Kamille Coreas CELEXA 5 Kamille Coreas Medications Administered No information available. Allergies, Adverse Reactions, Alerts Observed no known allergies at Results No information available. Plan of Care Type Date Detail Pending order Immunization(s) Ordered Pending order Inhalation Treat ment Pending order VFC Flu 3 yrs an d older Procedures Code Procedure Name Date Entry Date CPT-85215 Pulse Ox for O2 Saturation; single 03/30 IMMORDER Immunization(s) Ordered 2010 CPT-50998 Inhalation Treatment [id number] VFC Flu 3 yrs and older 2010 Vital Signs Date Name Value Unit Description BMI (Body Mass Index) 18.37 kg/m2 Bod y Mass Index (Ratio) Body Temperature 98.6 [degF] temperat ure E&M Body Temperature 37 Kaylene temperat ure in centigrade E&M BP Diastolic 55 mm[Hg] blood pressu re, diastolic BP Systolic 102 mm[Hg] blood pressur e, systolic BSA (Body Surface Area) 1.46 b dilip surface area Heart Rate 100 /min pulse rate Height 161.29 cm height in cent imeters E&M Height 63.5 [in_us] height E&M Weight Measured 105 [lb_av] weight E& M Weight Measured 105 [lb_av] weight E& M Weight Measured 47.73 kg weight in kilograms E&M Immunizations Vaccine Administration Date Standard Description CVX Co de Dose mmr #2 03 Unknown mmr #1 03 Unknown ipv #4 10 Unknown ipv #1 10 Unknown ipv #3 10 Unknown ipv #2 10 Unknown dtap #4 20 Unknown dtap #3 20 Unknown hib #3 17 Unknown dtap #5 20 Unknown dtap #1 20 Unknown hib #1 17 Unknown hib #2 17 Unknown dtap #2 20 Unknown varicella#1 21 Unknown hepbvax#1 45 Unknown hepbvax#3 45 Unknown hepbvax#2 45 Unknown flu vax#1 88 Unknown tdap vax 115 0.0 Advance Directives No information available.
[2024-09-10] MEDS: IBUPROFEN 600 MG TABLET 800 MG PO (23:54)
[2024-09-11 00:05] VITALS: BP 109/72; PULSE 61; O2SAT 99
[2024-09-11 00:10] LABS: Microscopic, Urine URINE MICROSCOPIC (MICROSCOPIC)
[2024-09-11 00:13] LABS: Bilirubin,Urine Negative (Negative); Color,Urine Yellow (Yellow); Glucose,Urine (UA) Negative (Negative); Ketones,Urine Negative (Negative); Leukocyte Esterase,Urine Negative (Negative); PH,Urine 6.0 (5.0-8.5); Protein,Urine Negative (Negative); Specific Gravity, Urine 1.020 (1.005-1.030); Urobilinogen,Urine 0.2 EU/dl (0.2)
[2024-09-11 00:26] LABS: Bacteria,Urine 4+ /lpf; Squamous Epithelial Cell,Urine 50-100 #/hpf (0-5)
[2024-09-11 00:31] VITALS: BP 106/67; PULSE 61; O2SAT 98
[2024-09-11] MEDS: LIDOCAINE 5% TRANSDERMAL PATCH 1 EACH TD (00:31)
[2024-09-11 00:38] VITALS: BP 116/71; PULSE 69; RESP 17; TEMP 36.8; O2SAT 98
--- NOTE | 2024-09-13 09:27 | PC.NURSE ---
Urine culture results reviewed by Dr. Cornell. No new orders received at this time.
== END 2024-09-11 00:39 | disposition home or self-care (01) ==
PROVIDERS: Emergency Provider Emergency Medicine; PCP Nurse Practitioner Family
DX: R10.84 Generalized abdominal pain (principal); R11.0 Nausea; R42 Dizziness and giddiness
CPT/HCPCS: 81001; 87086; 99283